=== PATIENT | male | born 1960 | race African-American/Black ===

== ENCOUNTER 2017-08-01 12:50 | Inpatient (IN) | payer OTHER ==
[2017-08-01 13:56] LABS: #Basophils 0.1 thou/uL (0.0-0.2); #Eosinphils 0.3 thou/uL (0.0-0.7); #Lymphocytes 1.1 thou/uL (1.20-3.40); #Monocytes 0.7 thou/uL (0.11-0.59); #Neutrophils 12.1 thou/uL (1.40-6.50); %Basophils 0.7 % (0.0-1.0); %Eosinophils 1.9 % (0.0-10.0); %Lymphocytes 7.9 % (21.0-51.0); %Monocytes 4.6 % (0.0-10.0); Mean Platelet Volume 8.3 fL (7.4-10.4); Red Blood Cell (RBC) Count 3.25 mill/uL (4.70-6.10); White Blood Cell (WBC) Count 14.3 thou/uL (4.8-10.8)
[2017-08-01 14:14] LABS: Bilirubin Negative (Negative); Blood, Urine Small (Negative); Glucose, Urine (Dipstick) >=1000 mg/dL (Negative); Ketone, Urine Negative (Negative); Nitrite Negative (Negative); Protein, Urine (Dipstick) 100 mg/dL (Neg-Trace); Urobilinogen 0.2 mg/dL (0.2-1.0)
[2017-08-01 14:18] LABS: ALT (SGPT) 13 U/L (8-55); AST (SGOT) 17 U/L (5-34); Alkaline Phosphatase 111 U/L (40-150); Anion Gap 19 mmol/L (10-20); BUN (Urea Nitrogen) 55 mg/dL (8.4-25.7); Bilirubin, Total 0.4 mg/dL (0.2-1.2); Calc. Creatinine Clearance 0 mL/min (70-130); Calcium 8.2 mg/dL (7.8-10.44); Carbon Dioxide 13 mmol/L (22-29); Chloride 106 mmol/L (98-107); Estimated GFR-MDRD 12; Globulin 3.9 g/dL (2.4-3.5); Protein, Total 6.4 g/dL (6.0-8.3)
[2017-08-01 14:19] LABS: Bacteria/HPF Rare-Few HPF (None Seen); Hyaline Casts/LPF 0-3 HYALINE CAST LPF (0-3 Hyaline); Squamous Epithelial 0-3 HPF (0-3); WBC/HPF 21-50 HPF (0-3)
[2017-08-01 14:22] LABS: Troponin I 0.128 ng/mL (< 0.028)
[2017-08-01 14:25] LABS: RBC/HPF 0-3 HPF (0-3)
[2017-08-01 14:26] LABS: Yeast-All Forms 1+ HPF (None Seen)
[2017-08-01 14:42] LABS: Oxyhemoglobin 91.3 % (94.0-97.0); Sodium 137 mmol/L (135-148)
[2017-08-01] MEDS ORDERED: Insulin Regular 300 UNITS/3 ML VIAL ONE (14:45)
[2017-08-01] MEDS ORDERED: Clindamycin/D5W 900 mg/50 ml Premix Bag ONE (14:45)
[2017-08-01 14:48] LABS: Mode RA; Modified Allen's Test POSITIVE; Vent NO
[2017-08-01] MEDS ORDERED: Insulin Regular 100 units/100 ml in NS IVPB SCH (15:00)
[2017-08-01] MEDS ORDERED: Piperacillin/Tazobactam 4.5 GM in Sodium Chloride 0.9% 100 ML IVPB SCH (15:15)
[2017-08-01] MEDS ORDERED: Heparin 10,000 UNITS/ 10 ML VIAL ONE (15:34)
[2017-08-01 15:37] LABS: Lactic Acid - Sepsis 0.9 mmol/L (0.5-2.2)
[2017-08-01 15:41] LABS: Magnesium 1.8 mg/dL (1.6-2.6); Phosphorus 4.8 mg/dL (2.3-4.7)
[2017-08-01] MEDS ORDERED: Loratadine 10 MG TAB PO PRN (15:41)
[2017-08-01] MEDS ORDERED: HumaLOG 300 UNITS/3 ML VIAL SC PRN ×2 (15:41)
[2017-08-01] MEDS ORDERED: Dextrose 50% Abboject 50 ML SYRINGE SLOW IVP PRN (15:41)
[2017-08-01] MEDS ORDERED: traMADol HCl 50 MG TAB PO PRN (15:41)
[2017-08-01] MEDS ORDERED: Lorazepam 1 MG TAB PO PRN (15:41)
[2017-08-01] MEDS ORDERED: Calcium Carbonate 500 MG ChewTAB PO PRN (15:41)
[2017-08-01] MEDS ORDERED: Nitroglycerin 0.4 MG TAB (25 Tab Bottle) SL PRN (15:41)
[2017-08-01] MEDS ORDERED: Dextrose 5% in Water 1,000 ML IV PRN (15:41)
[2017-08-01] MEDS ORDERED: Bisacodyl 5 MG TAB PO PRN ×2 (15:41)
[2017-08-01] MEDS ORDERED: Senokot 8.6 MG TAB PO PRN ×2 (15:41)
[2017-08-01] MEDS ORDERED: Benzonatate 100 MG CAP PO PRN (15:41)
[2017-08-01] MEDS ORDERED: Mag-Al 1200 mg/1200 mg/30 ML UDCUP PO PRN (15:41)
[2017-08-01] MEDS ORDERED: Acetaminophen 325 MG TAB PO PRN (15:41)
--- NOTE | 2017-08-01 15:59 | ULT ---
TESTICULAR ULTRASOUND: Date: 08/01/17 HISTORY: Testicular pain. FINDINGS: Each testicle demonstrates what appears to be a striated appearance, which is overall nonspecific an d symmetric in appearance bilaterally. Some of the striated appearance is related to vasculature wit hin the testicle. There is no evidence of a testicular mass bilaterally. Right testicle measures 4.0 cm x 2.5 cm x 2.3 cm. Left testicle measures 3.7 cm x 2.1 cm x 2.4 cm. Doppler evaluation of each testicle with spectral analysis and color flow evaluation does demonstrat e arterial flow. The epididymides demonstrate a normal sonographic appearance. There are small bilateral hydroceles noted. There is skin thickening and significant edema involving the scrotal soft tissues. Flatbed Press Operator reports bilateral varicoceles, but no Vasquez scale images were obtained in this regio n to definitely delineate a varicocele. Only images with flow are demonstrated and the vessels are u nable to be adequately evaluated on this exam. IMPRESSION: 1. Significant scrotal edema and mild skin thickening. 2. Nonspecific mildly striated appearance of each testicle, and some of the striated appearance is related to vascular structures. There is no testicular mass, and arterial flow is documented in each testicle. 3. Small bilateral hydroceles. POS: [facility]
[2017-08-01] MEDS ORDERED: NS 0.9% w/ 20 MEQ KCL 1,000 ML IV PRN ×2 (16:15)
[2017-08-01] MEDS ORDERED: Dextrose 5 %-0.45 % NaCl 1,000 ML IV PRN (16:15)
[2017-08-01] MEDS ORDERED: CCU Electrolyte Replacement 1 EACH IVPB ONE (16:15)
[2017-08-01] MEDS ORDERED: D5 1/2 NS w/20 mEq KCL 1,000 ML IV PRN (16:15)
[2017-08-01] MEDS ORDERED: Sodium Chloride 0.9% 500 ML IV SCH (16:15)
[2017-08-01] MEDS ORDERED: Sodium Chloride 0.9% 1,000 ML IV PRN ×4 (16:15)
[2017-08-01] MEDS ORDERED: Potassium Phosphate 15 MMOL in Sodium Chloride 0.9% 250 ML 250 ML IV PRN (16:26)
[2017-08-01] MEDS ORDERED: Magnesium Oxide 400 MG TAB PO PRN ×2 (16:26)
[2017-08-01] MEDS ORDERED: Potassium Chloride 40 MEQ in Sodium Chloride 0.9% 250 ML 250 ML IVPB PRN (16:26)
[2017-08-01] MEDS ORDERED: Magnesium 2 GM/NS 0.9% 100 ML 2 GM in Premix Bag 1 BAG IVPB PRN (16:26)
[2017-08-01] MEDS ORDERED: CCU ELECTROLYTE REPLACEMENT PROTOCOL FS PRN (16:26)
[2017-08-01] MEDS ORDERED: Potassium Chloride 20 MEQ TAB PO PRN (16:26)
[2017-08-01] MEDS ORDERED: Potassium Phosphate 9 MMOL in Sodium Chloride 0.9% 100 ML IVPB PRN (16:26)
[2017-08-01] MEDS ORDERED: Potassium Chloride 40 MEQ in Premix Bag 1 BAG IVPB PRN (16:26)
[2017-08-01] MEDS ORDERED: Potassium Phosphate 12 MMOL in Sodium Chloride 0.9% 250 ML 250 ML IV PRN (16:26)
[2017-08-01 17:03] LABS: Anion Gap 17 mmol/L (10-20); BUN (Urea Nitrogen) 53 mg/dL (8.4-25.7); Calc. Creatinine Clearance 0 mL/min (70-130); Calcium 7.5 mg/dL (7.8-10.44); Carbon Dioxide 13 mmol/L (22-29); Chloride 108 mmol/L (98-107); Estimated GFR-MDRD 13
[2017-08-01] MEDS ORDERED: Piperacillin/Tazobactam 3.375 GM in Sodium Chloride 0.9% 100 ML IVPB SCH (18:00)
[2017-08-01] MEDS ORDERED: VANCOMYCIN/ZOSYN IVPB PRN (18:07)
[2017-08-01 18:51] VITALS: BMI 22.1
[2017-08-01 19:37] LABS: Anion Gap 16 mmol/L (10-20); BUN (Urea Nitrogen) 52 mg/dL (8.4-25.7); Calc. Creatinine Clearance 15 mL/min (70-130); Carbon Dioxide 15 mmol/L (22-29); Chloride 109 mmol/L (98-107); Estimated GFR-MDRD 13
[2017-08-01] MEDS: Ferrous Sulfate 325 MG TAB PO SCH (20:07)
[2017-08-01] MEDS: Famotidine 20 MG TAB PO SCH (21:08)
[2017-08-01] MEDS: Carvedilol 6.25 MG TAB PO SCH (21:08)
[2017-08-01] MEDS: Heparin 5,000 UNITS/ML VIAL SC SCH (21:09)
[2017-08-01 21:35] LABS: Amphetamine Not Detected (NotDetected); Methadone Not Detected (NotDetected); Methamphetamine Not Detected (NotDetected)
--- NOTE | 2017-08-01 21:40 | HP ---
DATE OF ADMISSION: 08/01/2017 PRIMARY CARE PHYSICIAN: Dr. Almanzar. CHIEF COMPLAINT: Scrotal swelling and pain. HISTORY OF PRESENT ILLNESS: Mr. Dumont is a pleasant 57-year-old -H[place] male with past [facility] history of chronic kidney disease stage 4, uncontrolled diabetes and multiple hospitalizations f or nonketotic hyperosmolar diabetes as well as chronic systolic and diastolic congestive heart failu re and noncompliance, who presented to the emergency room with the above-mentioned complaint. Histo ry is mainly obtained by the patient himself and electronic medical record have been reviewed. The patient was in fact discharged from our facility just 2 days ago after being treated in the critical care unit with severe hypovolemic shock due to gastroenteritis and acute renal insufficiency. According to Mr. Dumont, he has been compliant with his medications. He was told not to take his insu shira sliding scale and continue to take Levemir 15 units 1 time a day. Though I have no collaboratio n of this order in his chart, he indeed just took one dose of insulin yesterday and did not take it this morning. He has been feeling poorly and has felt that his scrotum has gotten progressively mor e swollen and now it is hurting him pretty bad. In the emergency room, he was found to be in hyperosmolar state with a blood sugar of 661. His anio n gap is normal. His ABG showed mild acidosis with pH of 7.34 and his beta hydroxybutyrate is minim ally elevated at 0.59. He has been started on a DKA protocol with insulin drip. Further evaluation included a testicular ultrasound, which is negative for any testicular torsion. He does have indeed warmth and erythema of the testes on examination and he has been started on IV a ntibiotics for possible scrotal cellulitis and Urology has been consulted by the ER physician. He i s now being admitted to [facility] for HHS and scrotal cellulitis. His renal function shows estimated GFR 12, creatinine of 5.90 which was 5.79 upon discharge. PAST MEDICAL HISTORY: 1. History of nonketotic hyperosmolar state in 04/2017. 2. Chronic kidney disease stage 4. 3. Chronic systolic and diastolic congestive heart failure. 4. Benign prostatic hypertrophy. 5. Diabetes mellitus type 2. 6. Chronic microcytic anemia. 7. Hypertension. 8. Vascular disease. PAST SURGICAL HISTORY: 1. Cystoscopy 2. Right BKA. SOCIAL HISTORY: The patient lives with his aunt. The patient has history of cocaine abuse as recen tly as during his last admission. FAMILY HISTORY: Diabetes. CURRENT MEDICATIONS: As per the most recent discharge summary, he should be on the following, but t hese need to be confirmed. Coreg 6.25 p.o. b.i.d., ferrous sulfate 325 mg p.o. daily, Levemir 15 un its at bedtime, Lopressor 25 b.i.d., Flomax 0.4 daily, and Norvasc 10 mg daily. ALLERGIES: No known medication allergies. REVIEW OF SYSTEMS: The following complete review of systems was negative, unless otherwise mentione d in the HPI or below: Constitutional: Weight loss or gain, ability to conduct usual activities. Skin: Rash, itching. Eyes: Double vision, pain. ENT/Mouth: Nose bleeding, neck stiffness, pain, tenderness. Cardiovascular: Palpitations, dyspnea on exertion, orthopnea. Respiratory: Shortnes s of breath, wheezing, cough, hemoptysis, fever or night sweats. Gastrointestinal: Poor appetite, abdominal pain, heartburn, nausea, vomiting, constipation, or diarrhea. Genitourinary: Urgency, fr equency, dysuria, nocturia. Musculoskeletal: Pain, swelling. Neurologic/Psychiatric: Anxiety, de pression. Allergy/Immunologic: Skin rash, bleeding tendency. It is negative except for those ment ioned in the history and physical. LABORATORY DATA: CBC shows WBC is 14.3, platelet count of 318, 85% neutrophils. ABG shows pH of 7. 34, pCO2 of 33, pO2 of 75. Serum chemistry shows sodium 133, bicarbonate of 13, anion gap of 19, BU N 55, creatinine 5.90, blood sugar 661, lactic acid 0.9, phosphorus 4.8, magnesium 1.8. Troponin 0. 128. Lipase 66. Urinalysis show +1 yeast, few wbc's and trace leukocyte esterase. Beta hydroxybut yrate 0.59. Testicular ultrasound shows normal blood flow bilaterally and significant scrotal edema and skin thickening. PHYSICAL EXAMINATION: VITAL SIGNS: Upon presentation include blood pressure 188/111, pulse 90, respirations 22, saturatin g 99% on room air, and temperature 97.4. GENERAL: He appears uncomfortable, but lying in bed without any acute distress. He is awake, alert , oriented x3. HEENT: Mucous membrane is moist and pink. No oropharyngeal exudate or erythema. Head is normoceph alic, atraumatic. Pupils equal, reactive to light and accommodation. Extraocular movements intact. NECK: Supple without any lymphadenopathy, JVD or bruit. CHEST: Clear to auscultation without any wheezing, rales or rhonchi. Rate, rhythm is regular witho ut any murmur, rubs or gallops. ABDOMEN: Soft, nontender, nondistended, positive bowel sounds. EXTREMITIES: Showed right BKA without any edema in the left lower extremity. GENITOURINARY: He has significant swelling of his penis and scrotum bilaterally. There is redness and some warmth on palpation. It is tender to discharge. There is no skin breakdown or purulent di scharge. NEUROLOGIC: Nonfocal. SKIN: Free of any rashes or bruises. Feels warm and dry to touch. PSYCHIATRIC: Normal affect. IMPRESSION AND PLAN: 1. Scrotal cellulitis. We will continue the IV antibiotics that have been started in the emergency room including vancomycin and Zosyn. Urology has been consulted. We will follow the results of th e blood culture and urine culture obtained in the emergency room. 2. Hyperosmolar hyperketotic state and diabetes type 2. Given the severity of hyperglycemia and re nal failure: He will be treated with DKA protocol and will be admitted to IMCU. We will continue h im on insulin drip along with IV fluids with Accu-Cheks q.1 hour and BMP check q.4 hours. Follow the DKA protocol until his blood sugar improves. He will be restarted on long-acting insulin in the mo rning. Also, add insulin sliding scale in few hours when his blood sugar stabilize. Provide him wi th a diabetic diet. 3. Uncontrolled hypertension. We will restart his home medications, which further need to be confi rmed. It seems like he was taking 2 beta blockers. At this time, we will continue him on Coreg latisha ng with Norvasc and add p.r.n. antihypertensives. 4. Acute on chronic kidney insufficiency. We will reconsult Nephrology. The last time, the patien t left early without Nephrology followup. At this time, he will be gently resuscitated with IV flui ds. 5. History of chronic congestive heart failure. His last transthoracic echocardiogram was in 10/13 14, which showed ejection fraction of 40%-45% with concentric left ventricular hypertrophy. We will repeat the echocardiogram to obtain a baseline as he remains at risk for fluid overload by resuscit ation. 6. Diabetes mellitus type 2. I have instructed the patient to restart his short-acting insulin pos t-discharge along with continuation of his long-acting insulin. Medication dose will be titrated wh ile he is in the hospital. 7. Hyponatremia, likely spurious secondary to severe hyperglycemia. He will be resuscitated with I V fluids and we will continue to recheck. 8. Code status: FULL CODE. Discussed with the patient. DISPOSITION: The patient has hyperosmolar hyperketotic state due to diabetes mellitus type 2 along with scrotal edema and cellulitis. He will be admitted to IMCU at this time. Estimated length of s diana is at least 2-3 midnight. Further management will depend upon his clinical course.
[2017-08-01 23:51] LABS: Anion Gap 15 mmol/L (10-20); BUN (Urea Nitrogen) 52 mg/dL (8.4-25.7); Calc. Creatinine Clearance 14 mL/min (70-130); Calcium 7.8 mg/dL (7.8-10.44); Carbon Dioxide 15 mmol/L (22-29); Chloride 110 mmol/L (98-107); Estimated GFR-MDRD 13
[2017-08-01] MEDS: Piperacillin/Tazobactam 2.25 GM in Sodium Chloride 0.9% 100 ML IVPB SCH (23:51)
[2017-08-02 05:02] LABS: #Basophils 0.1 thou/uL (0.0-0.2); #Eosinphils 0.8 thou/uL (0.0-0.7); #Lymphocytes 1.4 thou/uL (1.20-3.40); #Monocytes 0.8 thou/uL (0.11-0.59); #Neutrophils 9.3 thou/uL (1.40-6.50); %Basophils 0.9 % (0.0-1.0); %Eosinophils 6.2 % (0.0-10.0); %Lymphocytes 11.5 % (21.0-51.0); Hematocrit 25.1 % (42.0-52.0); Mean Platelet Volume 8.1 fL (7.4-10.4); Red Blood Cell (RBC) Count 3.05 mill/uL (4.70-6.10); White Blood Cell (WBC) Count 12.4 thou/uL (4.8-10.8)
[2017-08-02 05:28] LABS: Anion Gap 13 mmol/L (10-20); BUN (Urea Nitrogen) 53 mg/dL (8.4-25.7); Calc. Creatinine Clearance 14 mL/min (70-130); Calcium 7.9 mg/dL (7.8-10.44); Carbon Dioxide 18 mmol/L (22-29); Chloride 108 mmol/L (98-107); Estimated GFR-MDRD 13
--- NOTE | 2017-08-02 05:36 | CON ---
DATE OF CONSULTATION: 08/01/2017 CONSULTING PHYSICIAN: Pauline Fitzpatrick MD REASON FOR CONSULTATION: Acute kidney injury, chronic kidney disease. REASON FOR ADMISSION: Testicular swelling. HISTORY OF PRESENT ILLNESS: A 57-year-old male with history of type 2 diabetes, kidney disease stag e IV, CHF, anemia, hypertension, but came to the hospital with testicular swelling and is being eval uated. He was recently discharged from the hospital, acute kidney injury on chronic kidney disease with slowly improving creatinine. Patient denies any shortness of breath or chest pain and he had d ifficulty having Palm insertion and Urology placed a Palm for him while he was in the hospital and after Palm removal, he started having swelling in the scrotum and was taken to the hospital. No f ever or chills, no nausea, vomiting, diarrhea, no chest pain or palpitation reported. PAST MEDICAL HISTORY: Positive for chronic kidney disease, type 2 diabetes, CHF, BPH, anemia, hyper tension, peripheral vascular disease. PAST SURGICAL HISTORY: Right below knee amputation. HOME MEDICATIONS: Include gabapentin, Coreg, Onglyza, Norvasc, lisinopril, Lasix, Flomax, Levemir. ALLERGIES: No known drug allergies. SOCIAL HISTORY: No smoking, alcohol or illicit drug abuse, but he was positive for cocaine last adonis e. FAMILY HISTORY: No history of any kidney disease. REVIEW OF SYSTEMS: The following complete review of systems was negative, unless otherwise mentione d in the HPI or below: Constitutional: Weight loss or gain, ability to conduct usual activities. Skin: Rash, itching. E yes: Double vision, pain. ENT/Mouth: Nose bleeding, neck stiffness, pain, tenderness. Cardiovasc ular: Palpitations, dyspnea on exertion, orthopnea. Respiratory: Shortness of breath, wheezing, c ough, hemoptysis, fever or night sweats. Gastrointestinal: Poor appetite, abdominal pain, heartbur n, nausea, vomiting, constipation, or diarrhea. Genitourinary: Urgency, frequency, dysuria, noctur ia. Musculoskeletal: Pain, swelling. Neurologic/Psychiatric: Anxiety, depression. Allergy/Immun ologic: Skin rash, bleeding tendency. PHYSICAL EXAMINATION: GENERAL: This is a well-built male in no apparent distress. VITAL SIGNS: Temperature 98.4, pulse 70, respirations 18, blood pressure 172/82. HEENT: Atraumatic, normocephalic. Oral mucosa is moist. NECK: Supple. No masses. CARDIOVASCULAR: S1, S2. Rate and rhythm regular. RESPIRATORY: Clear. ABDOMEN: Soft. Scrotal swelling present MUSCULOSKELETAL: No tenderness noted. No edema. DERMATOLOGIC: No skin rash. NEUROLOGIC: Alert, awake. LABORATORY AND X-RAY FINDINGS: WBC is 14.3, hemoglobin is 8.8, potassium is 4.0, BUN is 53, .4 . ASSESSMENT AND PLAN: 1. Acute kidney injury on chronic kidney disease. Renal function with slow recovery. No acute ind ication for dialysis. No hyperkalemia, still acidotic, we will add sodium bicarbonate. 2. Scrotal edema, follow up with Urology. 3. Hypertension, stable. 4. Anemia. We will monitor. 5. Status post transfusion. 6. We will monitor renal function. No acute need for dialysis. We will follow.
[2017-08-02] MEDS: cloNIDine 0.1 MG TAB PO PRN (06:24)
[2017-08-02] MEDS ORDERED: Insulin Regular 300 UNITS/3 ML VIAL SC PRN (08:49)
[2017-08-02] MEDS ORDERED: Insulin Detemir 100 UNITS/ML 15 UNITS in Pre-Filled Syringe 1 EACH SC SCH (09:00)
[2017-08-02] MEDS ORDERED: Insulin Regular 300 UNITS/3 ML VIAL SC SCH (09:00)
[2017-08-02] MEDS: Piperacillin/Tazobactam 2.25 GM in Sodium Chloride 0.9% 100 ML IVPB SCH ×2 (09:09→17:42)
[2017-08-02] MEDS: Heparin 5,000 UNITS/ML VIAL SC SCH ×2 (09:12→21:32)
[2017-08-02] MEDS: Amlodipine 10 MG TAB PO SCH (09:13)
[2017-08-02] MEDS: Tamsulosin HCl 0.4 MG CAP PO SCH (09:14)
[2017-08-02] MEDS: Carvedilol 6.25 MG TAB PO SCH ×2 (09:14→21:32)
[2017-08-02] MEDS: Ferrous Sulfate 325 MG TAB PO SCH ×2 (09:14→17:13)
--- NOTE | 2017-08-02 12:38 | CON ---
DATE OF CONSULTATION: 08/02/2017 HISTORY OF PRESENT ILLNESS: Homer Dumont is a 57-year-old male. He has a history of chronic kidney disease and diabetes. He was recently in the hospital. He presents with complaints of scrotal pain and swelling. He has subsequently been admitted. Urology has been consulted. He is on Zosyn and vancomycin. He says he feels about the same. PAST MEDICAL HISTORY: Remarkable for, 1. Severe peripheral vascular disease with right lower extremity amputation below the knee. 2. Hypertension. 3. History of cystoscopy in the past. SOCIAL HISTORY: He is a nonsmoker, nondrinker and history of using cocaine. FAMILY HISTORY: Negative for lung disease at an early age. PHYSICAL EXAMINATION: VITAL SIGNS: His blood pressure 153/99, heart rate 75, respiratory rate 20. He is afebrile, has be en afebrile since admission. HEENT: Pupils are equal. Sclerae is anicteric. NECK: Supple. LUNGS: Clear. HEART: Regular rhythm. ABDOMEN: Soft and nontender. GENITOURINARY: He has penile and scrotal edema with mild erythema. He does not have the appearance of necrotizing fasciitis. Urology has been consulted. LABORATORY DATA: White count 12.4, hemoglobin 8.2, platelets 299. Sodium 134, potassium 4.6, chloride 108, bicarbonate 18, BUN 53, creatinine 5.6. IMPRESSION: 1.? cellulitis of the scrotum, less likely necrotizing fasciitis. He does not clinically appear to be septic. 2. Severe hyperglycemia. 3. History of medical noncompliance. 4. History of cocaine use with positive drug screen for cocaine in this admission. 5. He will continue antimicrobial therapy and await neurology's input. He appears to be medically stable.
--- NOTE | 2017-08-02 12:39 | PQF ---
DATE: 08-02-17 ATTN: DR. SHIVA KELLY Please exercise your independent, professional judgment in responding to the clarification form. Clinical indicators are provided on the bottom of this form for your review Please check appropriate box(s): ___X____ I (concur) with the Nurses Assessment findings as stated below. I do not (concur) with the Nurses Assessment findings as stated below. [ ] Pressure Ulcer: (Stage I: Erythema; Stage II: Partial thickness; Stage III : Full thickness; Stage IV: Necrosis to muscle/bone) [ ] Location: POA: [ X] Yes [ ] No[ ] Unable to determine Stage (I to IV): (Left Right Bilateral N/A ) [ ] Gangrene present [ ] Yes [ ] ischemic gangrene [ ] gas gangrene [ ] No [ ] Deep tissue injury [ ] Other diagnosis [ ] Unable to determine In addition, please specify: Present on Admission (POA): [X ] Yes [ ] No [ ] Unable to determine For continuity of documentation, please document condition throughout progress notes and discharge summary. Thank You. CLINICAL INDICATORS - SIGNS / SYMPTOMS / LABS NURSE ASSESSMENT 08-01-17: SACROCOCCYGEAL PRESSURE ULCER STAGE 3 RISK FACTORS: NURSE ASSESSMENT 08-01-17: WEAK, CAN NOT WALK, CAN NOT STAND, 1 PERSON ASSIST, MODERATE ASSISTANCE, R BKA TREATMENTS: NURSE ASSESSMENT: DRESSING DRY AND INTACT, MERIPLEX, DRESSING CHANGED, PRESSURE POINTS OFFLOADED (This form is maintained as a part of the permanent medical record) 2015 [employer] All Rights Reserved [email or web address] Office: [phone] [facility]PITALSaad
--- NOTE | 2017-08-02 12:57 | PQF ---
DATE: 08-02-17 ATTN : DR. SHIVA KELLY Please exercise your independent, professional judgment in responding to the clarification form. Clinical indicators are provided on the bottom of this form for your review Please check appropriate box(s): [ ] UTI UTI Site: [ ] Kidney [ ] Ureter [ ] Bladder [ ] Urethra [ ] Unable to determine Specify Organism (if known): [ ] Unknown organism [ ] Contaminated urine specimen without UTI [ ] Other diagnosis [X ] Unable to determine In addition, please specify: Present on Admission (POA): [ ] Yes [ X] No [ ] Unable to determine For continuity of documentation, please document condition throughout progress notes and discharge summary. Thank You. CLINICAL INDICATORS - SIGNS / SYMPTOMS / LABS URINE 08-01-17: URINE PROTEIN: 100 H URINE GLUCOSE: >=1000 H URINE BLOOD: SMALL H UR LEUKOCYTE ESTERASE: TRACE H URINE WBC: 21-50 H URINE YEAST 1+ H RISK FACTORS: H&P: MULTIPLE HOSPITALIZATIONS FOR NONKETONIC HYPEROSMOLAR DIABETES, UNCONTROLLED DIABETES HISTORY, JUST DISCHARGED 2 DAYS AGO, R BKA , TESTICULAR SWELLING TREATMENT: (08/01/17) ZOSYN, (08-03-17) VANCOMYCIN (This form is maintained as a part of the permanent medical record) 2014 [employer] All Rights Reserved [email or web address] Office: [phone] [facility]
--- NOTE | 2017-08-02 15:17 | PDOC.PN ---
- Subjective Encounter Start Date: 08/02/17 Encounter Start Time: 15:15 Subjective: feels better.scrotal swelling stilll the same -: no SOB - Objective MAR Reviewed: Yes Vital Signs & Weight: Vital Signs (12 hours) Temp Pulse Resp BP BP Pulse Ox 08/02/17 11:13 97.7 F 77 20 171/100 H 99 08/02/17 09:14 153/99 H 08/02/17 09:13 75 153/99 H 08/02/17 08:04 83 159/105 H 08/02/17 08:00 97.6 F 81 20 98 08/02/17 07:08 97.6 F 81 20 177/107 H 98 08/02/17 06:24 176/109 H 08/02/17 05:00 80 16 147/106 H 98 08/02/17 04:00 98.0 F 82 20 175/107 H 98 Weight Admit Weight 149 lb 14.624 oz Weight 149 lb 14.624 oz I&O: 08/01/17 08/02/17 08/03/17 06:59 06:59 06:59 Intake Total 1045 1134.6 Output Total 720 175 Balance 325 959.6 Result Diagrams: 08/02/17 04:11 08/02/17 04:11 Additional Labs: Accuchecks 08/02/17 08/02/17 08/02/17 11:13 09:06 07:56 POC Glucose 110 128 H 114 H 08/02/17 08/02/17 08/02/17 07:01 06:01 05:12 POC Glucose 120 H 144 H 159 H 08/02/17 08/02/17 08/02/17 04:02 03:02 02:05 POC Glucose 160 H 164 H 175 H 08/02/17 08/02/17 08/01/17 01:03 00:02 23:00 POC Glucose 130 H 99 98 08/01/17 08/01/17 08/01/17 22:02 21:00 20:01 POC Glucose 110 143 H 178 H 08/01/17 08/01/17 18:53 17:09 POC Glucose 254 H 403 H Microbiology 08/01/17 14:02 Urine clean catch Urine Culture - Preliminary 08/01/17 13:43 Venous blood - Left Hand Blood Culture - Preliminary Specimen has been received and culture in progress. No Growth to date. 08/01/17 13:39 Venous blood - Right Arm Blood Culture - Preliminary Specimen has been received and culture in progress. No Growth to date. Laboratory Tests 08/01/17 08/01/17 08/01/17 13:33 16:33 19:10 Carbon Dioxide 13 L 13 L 15 L Creatinine 5.90 H 5.49 H 5.43 H U Cocaine Metab Screen 08/01/17 08/01/17 08/02/17 19:55 23:12 04:11 Carbon Dioxide 15 L 18 L Creatinine 5.57 H 5.62 H U Cocaine Metab Screen Detected H Phys Exam - Physical Examination Constitutional: NAD HEENT: PERRLA, moist MMs, sclera anicteric, oral pharynx no lesions Neck: no nodes, no JVD, supple, full ROM Respiratory: no wheezing, no rales, no rhonchi, clear to auscultation bilateral Cardiovascular: RRR, no significant murmur Gastrointestinal: soft, non-tender, no distention, positive bowel sounds Musculoskeletal: pulses present, edema present (scrotal and penile edema w erythema and tenderness) Dx/Plan (1) Cellulitis of scrotum Code(s): N49.2 - INFLAMMATORY DISORDERS OF SCROTUM Status: Acute (2) Acute kidney injury superimposed on CKD Code(s): N17.9 - ACUTE KIDNEY FAILURE, UNSPECIFIED; N18.9 - CHRONIC KIDNEY DISEASE, UNSPECIFIED Status: Acute (3) Hyperosmolar non-ketotic state in patient with type 2 diabetes mellitus Code(s): E11.01 - TYPE 2 DIABETES MELLITUS WITH HYPEROSMOLARITY WITH COMA Status: Acute (4) Hx of BKA Code(s): Z89.519 - ACQUIRED ABSENCE OF UNSPECIFIED LEG BELOW KNEE Status: Acute (5) Metabolic acidosis Code(s): E87.2 - ACIDOSIS Status: Acute (6) Anemia of renal disease Code(s): D63.1 - ANEMIA IN CHRONIC KIDNEY DISEASE Status: Chronic (7) BPH (benign prostatic hyperplasia) Code(s): N40.0 - BENIGN PROSTATIC HYPERPLASIA WITHOUT LOWER URINRY TRACT SYMP Status: Chronic (8) Chronic combined systolic and diastolic heart failure Code(s): I50.42 - CHRONIC COMBINED SYSTOLIC AND DIASTOLIC HRT FAIL Status: Chronic (9) Cocaine abuse Code(s): F14.10 - COCAINE ABUSE, UNCOMPLICATED Status: Chronic - Plan continue antibiotics, DVT proph w/SCDs cont IV Abx. follow Cx.urology consulted. -: add Hydralazine for HTN.monitor -: add Bicarb drip.Cr still high. nephrology following.repeat labs in am -: HHS resolved. cont ISS w [facility] accuchecks.follow BMP. -: restart levemir hs at 15 Units. * .am labs.supportive care Review of Systems - Review of Systems Constitutional: Weakness, Malaise. negative: Fever, Chills, Sweats, Other Respiratory: negative: Cough, Dry, Shortness of Breath, Hemoptysis, SOB with Excertion, Pleuritic Pain, Sputum, Wheezing Cardiovascular: Edema. negative: Chest Pain, Palpitations, Orthopnea, Paroxysmal Noc. Dyspnea, Light Headedness, Other Gastrointestinal: negative: Nausea, Vomiting, Abdominal Pain, Diarrhea, Constipation, Melena, Hematochezia, Other Genitourinary: negative: Dysuria, Frequency, Incontinence, Hematuria, Retention , Other Musculoskeletal: negative: Neck Pain, Shoulder Pain, Arm Pain, Back Pain, Hand Pain, Leg Pain, Foot Pain, Other - Medications/Allergies Allergies/Adverse Reactions: Allergies Allergy/AdvReac Type Severity Reaction Status Date / Time No Known Drug Allergies Allergy Verified 05/09/17 07:17 Medications: Current Medications Acetaminophen (Tylenol) 650 mg PO Q4H PRN PRN Reason: Headache/Fever or Pain Al Hydroxide/Mg Hydroxide (Maalox) 30 ml PO Q6H PRN PRN Reason: Heartburn or Indigestion Amlodipine Besylate (Norvasc) 10 mg PO DAILY [facility] Last Admin: 08/02/17 09:13 Dose: 10 mg Benzonatate (Tessalon) 100 mg PO Q4H PRN PRN Reason: Cough Bisacodyl (Dulcolax) 10 mg PO DAILYPRN PRN PRN Reason: Constipation Calcium Carbonate (Tums) 1,000 mg PO Q4H PRN PRN Reason: Heartburn or Indigestion Carvedilol (Coreg) 6.25 mg PO BID [facility] Last Admin: 08/02/17 09:14 Dose: 6.25 mg Clonidine (Catapres) 0.1 mg PO Q4H PRN PRN Reason: Systolic BP > 160 Last Admin: 08/02/17 06:24 Dose: 0.1 mg Dextrose/Water (Dextrose 50%) 25 gm SLOW IVP PRN PRN PRN Reason: Hypoglycemia Famotidine (Pepcid) 20 mg PO Q24HR [facility] Last Admin: 08/01/17 21:08 Dose: 20 mg Ferrous Sulfate (Feosol) 325 mg PO BID[facility] Last Admin: 08/02/17 09:14 Dose: 325 mg Glucagon (Glucagon) 1 mg IM PRN PRN PRN Reason: Hypoglycemia Heparin Sodium (Porcine) (Heparin) 5,000 units SC BID [facility] Last Admin: 08/02/17 09:12 Dose: 5,000 units Hydralazine HCl (Apresoline) 10 mg SLOW IVP Q4H PRN PRN Reason: Systolic BP > 170 Dextrose/Water (D5w) 1,000 mls @ 0 mls/hr IV .Q0M PRN; As Directed PRN Reason: Hypoglycemia Potassium Chloride 40 meq/ (Sodium Chloride) 270 mls @ 135 mls/hr IVPB ASDIR PRN PRN Reason: FOR SERUM K+ 2.5 - 3.5 Potassium Chloride 40 meq/ (Device) 100 mls @ 50 mls/hr IVPB ASDIR PRN PRN Reason: FOR SERUM K+ 2.5 - 3.5 Magnesium Sulfate 1 gm/ Sodium (Chloride) 102 mls @ 102 mls/hr IV PRN PRN PRN Reason: MAG LEVEL 1.4 - 2.0 Magnesium Sulfate 2 gm/ Device 100 mls @ 100 mls/hr IVPB ASDIR PRN PRN Reason: MAGNESIUM < 1.4 Potassium Phosphate 9 mmol/ (Sodium Chloride) 103 mls @ 25.75 mls/hr IVPB ASDIR PRN PRN Reason: Phosphate 1.0-1.8 Potassium Phosphate 12 mmol/ (Sodium Chloride) 254 mls @ 63.5 mls/hr IV ASDIR PRN PRN Reason: Serum phosphate 0.5-0.9 Potassium Phosphate 15 mmol/ (Sodium Chloride) 255 mls @ 63.75 mls/hr IV ASDIR PRN PRN Reason: Serum Phos < 0.5 Insulin Detemir 15 units/ (Miscellaneous Medication) 0.15 mls @ 0 mls/hr SC [facility] Vancomycin HCl 750 mg/ Sodium (Chloride) 250 mls @ 250 mls/hr IVPB Q2D@1500 [facility] Piperacillin Sod/Tazobactam (Sod 2.25 gm/ Sodium Chloride) 100 mls @ 200 mls/ hr IVPB 0800,1600,2359 [facility] Last Admin: 08/02/17 09:09 Dose: 100 mls Insulin Human Regular (Humulin R) 0 units SC .MODERATE SLIDING SC PRN; Protocol PRN Reason: MODERATE SLIDING SCALE Insulin Human Regular (Humulin R) 0 units SC .BEDTIME SLIDING SC PRN; Protocol PRN Reason: BEDTIME SLIDING SCALE Loratadine (Claritin) 10 mg PO DAILYPRN PRN PRN Reason: Sinus Symptoms Lorazepam (Ativan) 1 mg PO Q4H PRN PRN Reason: Anxiety/Agitation Magnesium Oxide (Magnesium Oxide) 400 mg PO BIDPRN PRN PRN Reason: FOR SERUM MAG 1.4 - 2.0 Magnesium Oxide (Magnesium Oxide) 800 mg PO PRN PRN PRN Reason: FOR SERUM MAG < 1.4 Miscellaneous Medication (Phos-Nak) 1 pkt PO TIDPRN PRN PRN Reason: FOR PHOS LEVEL 1.0 - 1.8 Miscellaneous Medication (Phos-Nak) 2 pkt PO TIDPRN PRN PRN Reason: FOR PHOS LEVEL 0.5 - 1.0 Miscellaneous Medication (Pharmacy To Dose) 1 each IVPB PRN PRN PRN Reason: PHARMACY TO DOSE Nitroglycerin (Nitrostat) 0.4 mg SL Q5MIN PRN PRN Reason: Chest Pain Potassium Chloride (K-Dur) 40 meq PO ASDIR PRN PRN Reason: FOR SERUM K+ 2.5 - 3.5 Potassium Chloride (Klor-Con) 40 meq PER TUBE ASDIR PRN PRN Reason: FOR SERUM K+ 2.5-3.5 Senna (Senokot) 2 tab PO HSPRN PRN PRN Reason: Constipation Tamsulosin HCl (Flomax) 0.4 mg PO DAILY [facility] Last Admin: 08/02/17 09:14 Dose: 0.4 mg Tramadol HCl (Ultram) 50 mg PO Q4H PRN PRN Reason: Moderate Pain (4-6)
[2017-08-02] MEDS ORDERED: Vancomycin HCl 1 GM in Premix Bag 1 BAG IVPB SCH (16:15)
[2017-08-02] MEDS ORDERED: Ferrous Sulfate 325 MG TAB PO SCH (17:00)
[2017-08-02] MEDS: Sodium Bicarbonate 150 MEQ in Dextrose 5% in Water 1,000 ML IV SCH ×2 (17:10)
--- NOTE | 2017-08-02 20:29 | PRG ---
DATE OF SERVICE: 08/02/2017 SUBJECTIVE: Patient was seen and examined at bedside and overnight events noted. Patient denies an y shortness of breath or chest pain or palpitation. No history of Nausea or vomiting or diarrhea or fever or chills or cramps. OBJECTIVE: GENERAL: This is a well-built male in no apparent distress. VITAL SIGNS: Temperature 97.8, pulse 74, respirations 18, blood pressure 151/113. HEENT: Atraumatic, normocephalic, oral mucosa is moist. NECK: Supple. CARDIOVASCULAR: S1, S2 heard, rate and rhythm regular. RESPIRATORY: Clear to auscultation. GASTROINTESTINAL: Abdomen is soft. MUSCULOSKELETAL: No tenderness, no edema. DERMATOLOGIC: No skin rash. NEUROLOGIC: Alert and awake and oriented x3, no focal neurologic deficits. Moving all the extremit ies. PSYCHIATRIC: Mood and affect normal. LABORATORY DATA: Potassium is 4.6, BUN is 53 and creatinine is 5.6. ASSESSMENT AND PLAN: 1. Acute kidney injury on chronic kidney disease stage 4. Renal function seems to be stable. Cont inue on hydration. We will continue on bicarbonate. 2. Acidosis. 3. Total edema. 4. Anemia. 5. Hypertension, stable. 6. Continue IV fluids. Renal function is stable. No acute indication for dialysis. We will rocael mccartney
[2017-08-02] MEDS: Famotidine 20 MG TAB PO SCH (21:32)
[2017-08-02] MEDS: Insulin Detemir 100 UNITS/ML 15 UNITS in Pre-Filled Syringe 1 EACH SC SCH (21:33)
[2017-08-02] MEDS: hydrALAZINE 25 MG TAB PO SCH (21:33)
[2017-08-02] MEDS: hydrALAZINE 20 MG/ML VIAL SLOW IVP PRN (23:06)
[2017-08-03] MEDS: Piperacillin/Tazobactam 2.25 GM in Sodium Chloride 0.9% 100 ML IVPB SCH ×4 (00:19→23:40)
[2017-08-03 05:50] LABS: Anion Gap 13 mmol/L (10-20); BUN (Urea Nitrogen) 52 mg/dL (8.4-25.7); Calc. Creatinine Clearance 14 mL/min (70-130); Calcium 7.9 mg/dL (7.8-10.44); Carbon Dioxide 18 mmol/L (22-29); Chloride 107 mmol/L (98-107); Estimated GFR-MDRD 13
--- NOTE | 2017-08-03 07:11 | CON ---
DATE OF CONSULTATION: 08/02/2017 REASON FOR CONSULTATION: Scrotal swelling. HISTORY OF PRESENT ILLNESS: Mr. Dumont is a 57-year-old gentleman who I saw during a recent admission to [facility]. At that time, consultation was for inability to place a Palm catheter. The patient has a history of difficult catheter placement and was admitted to the hospital in diabetic ketoacidosis. He was also found to have renal failure and urine output necessary and adequate urine output was needed. Filiforms and followers were utilized to place a Palm catheter at that time. He was discharged home approximately 2 days ago. He states that they removed his Palm catheter prior to discharge on 07/30/2017. After removal of the Palm catheter, he noted the beginning of some swelling in his scrotum. He returned to the hospital on 08/01 after being discharged on 07/30/2017. He presented with a progressive swelling in the scrotum. He was admitted from the emergency room on 2016. Denies any tenderness. Denies any trauma to the scrotum. He states he has been voiding without difficulty. PAST MEDICAL HISTORY: Nonketotic hyperosmolar diabetes mellitus, chronic kidney disease, history of heart failure, history of bladder neck contracture, hypertension, severe peripheral vascular disease, drug abuse and anemia. PAST SURGICAL HISTORY: Right below-knee amputation. MEDICATIONS: At the time of discharge from the hospital 2 days ago included Coreg 6.25 mg p.o. b.i.d., iron sulfate 325 mg p.o. daily, Levemir 15 units at bedtime, Lopressor 25 mg b.i.d., Flomax 0.4 mg, Norvasc 10 mg daily. ALLERGIES: No known drug allergies. SOCIAL HISTORY: History of drug abuse. REVIEW OF SYSTEMS: RESPIRATORY: Denies any shortness of breath. CARDIOVASCULAR: Denies chest pain or palpitations. GASTROINTESTINAL: Denies chronic diarrhea, constipation. PHYSICAL EXAMINATION: GENERAL: He is awake, alert, he is in no distress at this time. HEENT: Normocephalic, atraumatic. NECK: Supple, without masses. CHEST: Clear to auscultation. ABDOMEN: Soft, nontender. No palpable masses. GENITOURINARY: Uncircumcised penis demonstrates no lesions. Scrotum is symmetrical in appearance. There is no evidence of skin disruption, no palpable masses, not significantly tender. No evidence of crepitance. LABORATORY DATA: White count 14.3, arterial blood gas pH 7.34, creatinine 5.9. IMAGING: Scrotal ultrasound, no evidence of tumor, no evidence of torsion, no evidence of masses. IMPRESSION: I agree with admission diagnosis of scrotal cellulitis. 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 Etiology of his cellulitis is not obvious. I agree with the current antibiotic therapy in addition to scrotal elevation. He denies any voiding symptoms at this time, so I do not recommend Palm catheterization. RECOMMENDATIONS: Scrotal elevation, antibiotic therapy, nonsurgically identifiable treatment options at this time. MTDD
[2017-08-03] MEDS ORDERED: Diabetic Tussin 200 MG/10 ML UDCUP PO PRN (07:40)
[2017-08-03] MEDS ORDERED: Chloraseptic Spray 180 ml Bottle PO PRN (07:40)
[2017-08-03] MEDS ORDERED: Ondansetron ODT 4 MG TAB PO PRN (07:40)
[2017-08-03] MEDS ORDERED: Artificial Tears 18 DROP/0.9 ML EA EYE PRN (07:40)
[2017-08-03] MEDS ORDERED: Eucerin (Mineral Oil/Petrolatum,White) 30 gm Jar TOP PRN (07:40)
[2017-08-03] MEDS ORDERED: Loperamide HCl 2 MG CAP PO PRN (07:40)
[2017-08-03] MEDS ORDERED: Milk Of Magnesia 30 ML UDCUP PO PRN (07:40)
[2017-08-03] MEDS ORDERED: Temazepam 15 MG CAP PO PRN (07:40)
[2017-08-03] MEDS ORDERED: Ondansetron HCl/PF 4 MG/2 ML Vial IVP PRN (07:40)
[2017-08-03] MEDS ORDERED: Sodium Chloride 0.65% Nasal 44 ML BOT EA NARE PRN (07:40)
[2017-08-03] MEDS: hydrALAZINE 25 MG TAB PO SCH ×3 (08:43→21:20)
[2017-08-03] MEDS: Amlodipine 10 MG TAB PO SCH (08:44)
[2017-08-03] MEDS: Carvedilol 6.25 MG TAB PO SCH ×2 (08:44→21:20)
[2017-08-03] MEDS: Heparin 5,000 UNITS/ML VIAL SC SCH ×2 (08:45→21:19)
[2017-08-03] MEDS: Tamsulosin HCl 0.4 MG CAP PO SCH (08:45)
[2017-08-03] MEDS: Ferrous Sulfate 325 MG TAB PO SCH ×2 (08:45→17:52)
[2017-08-03] MEDS: Sodium Bicarbonate 150 MEQ in Dextrose 5% in Water 1,000 ML IV SCH ×2 (08:58)
--- NOTE | 2017-08-03 11:48 | PDOC.PN ---
- Subjective Encounter Start Date: 08/03/17 Encounter Start Time: 09:30 -: old records requested/rev Patient seen and examined. No new complaints. No overnight events, no fever, pt does not want to go for HD - Objective MAR Reviewed: Yes Vital Signs & Weight: Vital Signs (12 hours) Temp Pulse Resp BP BP Pulse Ox 08/03/17 11:28 98.5 F 85 18 174/93 H 100 08/03/17 08:44 90 180/88 H 08/03/17 08:43 90 180/88 H 08/03/17 08:00 98.3 F 90 18 180/88 H 98 08/03/17 04:00 98.4 F 88 16 162/84 H 100 08/03/17 00:00 98.1 F 86 16 172/91 H 98 Weight Admit Weight 149 lb 14.624 oz Weight 149 lb 14.624 oz I&O: 08/02/17 08/03/17 08/04/17 06:59 06:59 06:59 Intake Total 1045 2299.6 Output Total 720 525 Balance 325 1774.6 Result Diagrams: 08/02/17 04:11 08/03/17 04:28 Additional Labs: Accuchecks 08/03/17 08/03/17 08/02/17 04:59 00:29 19:28 POC Glucose 154 H 294 H 228 H 08/02/17 16:41 POC Glucose 94 Phys Exam - Physical Examination Constitutional: NAD HEENT: PERRLA, moist MMs, sclera anicteric Neck: no JVD, supple Respiratory: no wheezing, no rales, no rhonchi Cardiovascular: RRR, no significant murmur, no rub Gastrointestinal: soft, non-tender, no distention, positive bowel sounds Musculoskeletal: no edema right BKA Neurological: non-focal, normal sensation scrotal cellulitis Lymphatic: no nodes Psychiatric: normal affect Skin: no rash, normal turgor Dx/Plan (1) Acute worsening of stage 4 chronic kidney disease Code(s): N28.9 - DISORDER OF KIDNEY AND URETER, UNSPECIFIED; N18.4 - CHRONIC KIDNEY DISEASE, STAGE 4 (SEVERE) Status: Acute (2) Cellulitis of scrotum Code(s): N49.2 - INFLAMMATORY DISORDERS OF SCROTUM Status: Acute (3) Hx of BKA Code(s): Z89.519 - ACQUIRED ABSENCE OF UNSPECIFIED LEG BELOW KNEE Status: Acute Qualifiers: Laterality: right Qualified Code(s): Z89.511 - Acquired absence of right leg below knee (4) Metabolic acidosis Code(s): E87.2 - ACIDOSIS Status: Acute (5) Anemia of renal disease Code(s): D63.1 - ANEMIA IN CHRONIC KIDNEY DISEASE Status: Chronic (6) BPH (benign prostatic hyperplasia) Code(s): N40.0 - BENIGN PROSTATIC HYPERPLASIA WITHOUT LOWER URINRY TRACT SYMP Status: Chronic (7) Chronic combined systolic and diastolic heart failure Code(s): I50.42 - CHRONIC COMBINED SYSTOLIC AND DIASTOLIC HRT FAIL Status: Chronic (8) Cocaine abuse Code(s): F14.10 - COCAINE ABUSE, UNCOMPLICATED Status: Chronic (9) Diabetic neuropathy Code(s): E11.40 - TYPE 2 DIABETES MELLITUS WITH DIABETIC NEUROPATHY, UNSP Status: Chronic Qualifiers: Diabetes mellitus type: type 2 (10) FTT (failure to thrive) in adult Status: Chronic (11) Hypertension Code(s): I10 - ESSENTIAL (PRIMARY) HYPERTENSION Status: Chronic Qualifiers: Hypertension type: essential hypertension Qualified Code(s): I10 - Essential (primary) hypertension (12) Moderate protein-calorie malnutrition Code(s): E44.0 - MODERATE PROTEIN-CALORIE MALNUTRITION Status: Chronic - Plan cont current plan of care, continue antibiotics * counselled to avoid coccaine abuse * continue empiric antibiotic as below * urology recommendation noted * discussed with nephrology * continue bicarb drip * medication reviewed as below * symptomatic treatment. Review of Systems - Review of Systems Constitutional: negative: Fever, Chills, Sweats, Weakness, Malaise, Other ENT: negative: Ear Pain, Ear Discharge, Nose Pain, Nose Discharge, Nose Congestion, Mouth Pain, Mouth Swelling, Throat Pain, Throat Swelling, Other Respiratory: negative: Cough, Dry, Shortness of Breath, Hemoptysis, SOB with Excertion, Pleuritic Pain, Sputum, Wheezing Cardiovascular: negative: Chest Pain, Palpitations, Orthopnea, Paroxysmal Noc. Dyspnea, Edema, Light Headedness, Other Gastrointestinal: negative: Nausea, Vomiting, Abdominal Pain, Diarrhea, Constipation, Melena, Hematochezia, Other Genitourinary: negative: Dysuria, Frequency, Incontinence, Hematuria, Retention , Other Musculoskeletal: negative: Neck Pain, Shoulder Pain, Arm Pain, Back Pain, Hand Pain, Leg Pain, Foot Pain, Other - Medications/Allergies Allergies/Adverse Reactions: Allergies Allergy/AdvReac Type Severity Reaction Status Date / Time No Known Drug Allergies Allergy Verified 05/09/17 07:17 Medications: Current Medications Acetaminophen (Tylenol) 650 mg PO Q4H PRN PRN Reason: Headache/Fever or Pain Al Hydroxide/Mg Hydroxide (Maalox) 30 ml PO Q6H PRN PRN Reason: Heartburn or Indigestion Amlodipine Besylate (Norvasc) 10 mg PO DAILY [facility] Last Admin: 08/03/17 08:44 Dose: 10 mg Artificial Tears (Tears Naturale) 0 drop EA EYE PRN PRN PRN Reason: Dry Eyes Benzonatate (Tessalon) 100 mg PO Q4H PRN PRN Reason: Cough Bisacodyl (Dulcolax) 10 mg PO DAILYPRN PRN PRN Reason: Constipation Last Admin: 08/03/17 10:35 Dose: 10 mg Calcium Carbonate (Tums) 1,000 mg PO Q4H PRN PRN Reason: Heartburn or Indigestion Carvedilol (Coreg) 6.25 mg PO BID [facility] Last Admin: 08/03/17 08:44 Dose: 6.25 mg Clonidine (Catapres) 0.1 mg PO Q4H PRN PRN Reason: Systolic BP > 160 Last Admin: 08/02/17 06:24 Dose: 0.1 mg Dextrose/Water (Dextrose 50%) 25 gm SLOW IVP PRN PRN PRN Reason: Hypoglycemia Famotidine (Pepcid) 20 mg PO Q24HR [facility] Last Admin: 08/02/17 21:32 Dose: 20 mg Ferrous Sulfate (Feosol) 325 mg PO BID[facility] Last Admin: 08/03/17 08:45 Dose: 325 mg Glucagon (Glucagon) 1 mg IM PRN PRN PRN Reason: Hypoglycemia Guaifenesin (Robitussin Sf) 200 mg PO Q4H PRN PRN Reason: Cough Heparin Sodium (Porcine) (Heparin) 5,000 units SC BID [facility] Last Admin: 08/03/17 08:45 Dose: 5,000 units Hydralazine HCl (Apresoline) 10 mg SLOW IVP Q4H PRN PRN Reason: Systolic BP > 170 Last Admin: 08/02/17 23:06 Dose: 10 mg Hydralazine HCl (Apresoline) 25 mg PO TID [facility] Last Admin: 08/03/17 08:43 Dose: 25 mg Dextrose/Water (D5w) 1,000 mls @ 0 mls/hr IV .Q0M PRN; As Directed PRN Reason: Hypoglycemia Vancomycin HCl 750 mg/ Sodium (Chloride) 250 mls @ 250 mls/hr IVPB Q2D@1500 ANGE Piperacillin Sod/Tazobactam (Sod 2.25 gm/ Sodium Chloride) 100 mls @ 200 mls/ hr IVPB 0800,1600,2359 [facility] Last Admin: 08/03/17 08:43 Dose: 100 mls Insulin Detemir 15 units/ (Miscellaneous Medication) 0.15 mls @ 0 mls/hr SC HS [facility] Last Admin: 08/02/17 21:33 Dose: 0.15 mls Sodium Bicarbonate 150 meq/ (Dextrose/Water) 1,150 mls @ 75 mls/hr IV .[id number] [facility] Last Admin: 08/03/17 08:58 Dose: 1,150 mls Insulin Human Regular (Humulin R) 0 units SC .MODERATE SLIDING SC PRN; Protocol PRN Reason: MODERATE SLIDING SCALE Insulin Human Regular (Humulin R) 0 units SC .BEDTIME SLIDING SC PRN; Protocol PRN Reason: BEDTIME SLIDING SCALE Last Admin: 08/03/17 01:00 Dose: 3 unit Loperamide HCl (Imodium) 2 mg PO PRN PRN PRN Reason: Diarrhea/Loose Stools Loratadine (Claritin) 10 mg PO DAILYPRN PRN PRN Reason: Sinus Symptoms Lorazepam (Ativan) 1 mg PO Q4H PRN PRN Reason: Anxiety/Agitation Magnesium Hydroxide (Milk Of Magnesium) 30 ml PO DAILYPRN PRN PRN Reason: Constipation Mineral Oil/White Petrolatum (Eucerin Cream) 0 gm TOP BIDPRN PRN PRN Reason: Dry Skin Miscellaneous Medication (Pharmacy To Dose) 1 each IVPB PRN PRN PRN Reason: PHARMACY TO DOSE Nitroglycerin (Nitrostat) 0.4 mg SL Q5MIN PRN PRN Reason: Chest Pain Ondansetron HCl (Zofran Odt) 4 mg PO Q6H PRN PRN Reason: Nausea/Vomiting Ondansetron HCl (Zofran) 4 mg IVP Q6H PRN PRN Reason: Nausea/Vomiting Phenol (Chloraseptic [place] 180 Ml Bot) 0 ml PO PRN PRN PRN Reason: Sore Throat Senna (Senokot) 2 tab PO HSPRN PRN PRN Reason: Constipation Sodium Chloride ([place] Nasal Clio 0.65%) 0 ml EA NARE QIDPRN PRN PRN Reason: Nasal Congestion Tamsulosin HCl (Flomax) 0.4 mg PO DAILY [facility] Last Admin: 08/03/17 08:45 Dose: 0.4 mg Temazepam (Restoril) 15 mg PO HSPRN PRN PRN Reason: Insomnia Tramadol HCl (Ultram) 50 mg PO Q4H PRN PRN Reason: Moderate Pain (4-6)
[2017-08-03] MEDS ORDERED: Vancomycin HCl 750 MG in Sodium Chloride 0.9% 250 ML 250 ML IVPB SCH (15:00)
[2017-08-03] MEDS: Famotidine 20 MG TAB PO SCH (21:20)
[2017-08-03] MEDS: Insulin Detemir 100 UNITS/ML 15 UNITS in Pre-Filled Syringe 1 EACH SC SCH (21:25)
--- NOTE | 2017-08-03 21:43 | PRG ---
DATE OF SERVICE: 08/03/2017 SUBJECTIVE: The patient was seen and examined at the bedside and overnight events noted. The patie nt denies any shortness of breath or chest pain or palpitation. No history of nausea, vomiting, alvaro rrhea, fever, chills, or cramps. OBJECTIVE: GENERAL: This is a well-built male in no apparent distress. VITAL SIGNS: Temperature 98, pulse 85, respiratory rate 18, blood pressure 180/88. HEENT: Atraumatic, normocephalic. Oral mucosa is moist. NECK: Supple. CARDIOVASCULAR: S1 and S2 heard. Rate and rhythm regular. RESPIRATORY: Clear to auscultation. GASTROINTESTINAL: Abdomen is soft. MUSCULOSKELETAL: No tenderness. No edema. DERMATOLOGIC: No skin rash. NEUROLOGIC: Alert, awake, and oriented x3. No focal neurologic deficits. Moving all the extremiti es. PSYCHIATRIC: Mood and affect normal. LABORATORY DATA: Potassium is 4.2, BUN is 52, creatinine is 5.6. ASSESSMENT AND PLAN: 1. Acute kidney injury on chronic kidney disease stage 4. Renal function is stable. The patient r efused to have dialysis at this point. 2. Acidosis. 3. Anemia. 4. Hypertension. 5. Edema. 6. Continue hydration. No acute indication for dialysis, but the patient refused to have dialysis at this point.
[2017-08-04] MEDS: Sodium Bicarbonate 150 MEQ in Dextrose 5% in Water 1,000 ML IV SCH ×4 (04:53→05:22)
[2017-08-04 05:18] LABS: #Eosinphils 0.6 thou/uL (0.0-0.7); #Lymphocytes 1.4 thou/uL (1.20-3.40); #Monocytes 0.6 thou/uL (0.11-0.59); #Neutrophils 6.3 thou/uL (1.40-6.50); %Basophils 0.4 % (0.0-1.0); %Eosinophils 6.7 % (0.0-10.0); %Monocytes 6.2 % (0.0-10.0); Hematocrit 22.3 % (42.0-52.0); Mean Platelet Volume 7.9 fL (7.4-10.4)
[2017-08-04] MEDS: Insulin Regular 300 UNITS/3 ML VIAL SC PRN ×3 (05:19→16:57)
[2017-08-04 05:30] LABS: Anion Gap 12 mmol/L (10-20); BUN (Urea Nitrogen) 48 mg/dL (8.4-25.7); BUN/Creatinine Ratio 8.47; Calc. Creatinine Clearance 14 mL/min (70-130); Calcium 7.5 mg/dL (7.8-10.44); Carbon Dioxide 20 mmol/L (22-29); Chloride 106 mmol/L (98-107); Estimated GFR-MDRD 13; Phosphorus 5.4 mg/dL (2.3-4.7)
[2017-08-04] MEDS: Heparin 5,000 UNITS/ML VIAL SC SCH ×2 (08:37→21:23)
[2017-08-04] MEDS: Piperacillin/Tazobactam 2.25 GM in Sodium Chloride 0.9% 100 ML IVPB SCH ×3 (08:37→23:14)
[2017-08-04] MEDS: Carvedilol 6.25 MG TAB PO SCH (08:37)
[2017-08-04] MEDS: Tamsulosin HCl 0.4 MG CAP PO SCH (08:38)
[2017-08-04] MEDS: Amlodipine 10 MG TAB PO SCH (08:38)
[2017-08-04] MEDS: Ferrous Sulfate 325 MG TAB PO SCH ×2 (08:38→16:57)
[2017-08-04] MEDS: NIFEdipine XL 30 MG TAB PO SCH (08:40)
[2017-08-04] MEDS: hydrALAZINE 25 MG TAB PO SCH ×3 (08:41→21:23)
[2017-08-04] MEDS: Sevelamer Carbonate 800 MG TAB PO SCH ×3 (08:41→16:57)
--- NOTE | 2017-08-04 11:21 | PDOC.PN ---
- Subjective Encounter Start Date: 08/04/17 Encounter Start Time: 09:40 Patient seen and examined. No new complaints. No overnight events - Objective MAR Reviewed: Yes Vital Signs & Weight: Vital Signs (12 hours) Temp Pulse Resp BP BP BP Pulse Ox 08/04/17 08:41 93 186/95 H 08/04/17 08:40 93 186/95 H 08/04/17 08:38 93 186/85 H 08/04/17 08:37 186/95 H 08/04/17 08:00 98.6 F 93 18 186/95 H 98 08/04/17 05:00 172/92 H 08/04/17 04:00 98.7 F 94 20 94 L 08/04/17 00:38 99 Weight Admit Weight 149 lb 14.624 oz Weight 149 lb 14.624 oz I&O: 08/03/17 08/04/17 08/05/17 06:59 06:59 06:59 Intake Total 2299.6 1380 Output Total 525 500 Balance 1774.6 880 Result Diagrams: 08/04/17 04:17 08/04/17 04:17 Additional Labs: Accuchecks 08/04/17 08/03/17 08/03/17 05:04 20:22 15:37 POC Glucose 231 H 280 H 174 H 08/03/17 11:27 POC Glucose 120 H Phys Exam - Physical Examination Constitutional: NAD HEENT: PERRLA, moist MMs, sclera anicteric Neck: no JVD, supple Respiratory: no wheezing, no rales, no rhonchi Cardiovascular: RRR, no significant murmur, no rub Gastrointestinal: soft, non-tender, no distention, positive bowel sounds Musculoskeletal: no edema, pulses present right BKA, scrotal edema improving Neurological: non-focal, normal sensation Lymphatic: no nodes Psychiatric: normal affect, A&O x 3 Skin: no rash, normal turgor Dx/Plan (1) Acute worsening of stage 4 chronic kidney disease Code(s): N28.9 - DISORDER OF KIDNEY AND URETER, UNSPECIFIED; N18.4 - CHRONIC KIDNEY DISEASE, STAGE 4 (SEVERE) Status: Acute (2) Cellulitis of scrotum Code(s): N49.2 - INFLAMMATORY DISORDERS OF SCROTUM Status: Acute (3) Hx of BKA Code(s): Z89.519 - ACQUIRED ABSENCE OF UNSPECIFIED LEG BELOW KNEE Status: Acute Qualifiers: Laterality: right Qualified Code(s): Z89.511 - Acquired absence of right leg below knee (4) Metabolic acidosis Code(s): E87.2 - ACIDOSIS Status: Acute (5) Anemia of renal disease Code(s): D63.1 - ANEMIA IN CHRONIC KIDNEY DISEASE Status: Chronic (6) BPH (benign prostatic hyperplasia) Code(s): N40.0 - BENIGN PROSTATIC HYPERPLASIA WITHOUT LOWER URINRY TRACT SYMP Status: Chronic (7) Chronic combined systolic and diastolic heart failure Code(s): I50.42 - CHRONIC COMBINED SYSTOLIC AND DIASTOLIC HRT FAIL Status: Chronic (8) Cocaine abuse Code(s): F14.10 - COCAINE ABUSE, UNCOMPLICATED Status: Chronic (9) Diabetic neuropathy Code(s): E11.40 - TYPE 2 DIABETES MELLITUS WITH DIABETIC NEUROPATHY, UNSP Status: Chronic Qualifiers: Diabetes mellitus type: type 2 (10) FTT (failure to thrive) in adult Status: Chronic (11) Hypertension Code(s): I10 - ESSENTIAL (PRIMARY) HYPERTENSION Status: Chronic Qualifiers: Hypertension type: essential hypertension Qualified Code(s): I10 - Essential (primary) hypertension (12) Moderate protein-calorie malnutrition Code(s): E44.0 - MODERATE PROTEIN-CALORIE MALNUTRITION Status: Chronic - Plan cont current plan of care, continue antibiotics * change hydralazin 50 mg po tid * add procardia xl 30 mg po daily * continue iv antibiotics * add renvela * medication reviewed as below * symptomatic treatment. * continue vancomycin and zosyn Review of Systems - Review of Systems ENT: negative: Ear Pain, Ear Discharge, Nose Pain, Nose Discharge, Nose Congestion, Mouth Pain, Mouth Swelling, Throat Pain, Throat Swelling, Other Respiratory: negative: Cough, Dry, Shortness of Breath, Hemoptysis, SOB with Excertion, Pleuritic Pain, Sputum, Wheezing Cardiovascular: negative: Chest Pain, Palpitations, Orthopnea, Paroxysmal Noc. Dyspnea, Edema, Light Headedness, Other Gastrointestinal: negative: Nausea, Vomiting, Abdominal Pain, Diarrhea, Constipation, Melena, Hematochezia, Other Genitourinary: negative: Dysuria, Frequency, Incontinence, Hematuria, Retention , Other Musculoskeletal: negative: Neck Pain, Shoulder Pain, Arm Pain, Back Pain, Hand Pain, Leg Pain, Foot Pain, Other Skin: negative: Rash, Lesions, Panchito, Bruising, Other - Medications/Allergies Allergies/Adverse Reactions: Allergies Allergy/AdvReac Type Severity Reaction Status Date / Time No Known Drug Allergies Allergy Verified 05/09/17 07:17 Medications: Current Medications Acetaminophen (Tylenol) 650 mg PO Q4H PRN PRN Reason: Headache/Fever or Pain Al Hydroxide/Mg Hydroxide (Maalox) 30 ml PO Q6H PRN PRN Reason: Heartburn or Indigestion Amlodipine Besylate (Norvasc) 10 mg PO DAILY [facility] Last Admin: 08/04/17 08:38 Dose: 10 mg Artificial Tears (Tears Naturale) 0 drop EA EYE PRN PRN PRN Reason: Dry Eyes Benzonatate (Tessalon) 100 mg PO Q4H PRN PRN Reason: Cough Bisacodyl (Dulcolax) 10 mg PO DAILYPRN PRN PRN Reason: Constipation Last Admin: 08/03/17 10:35 Dose: 10 mg Calcium Carbonate (Tums) 1,000 mg PO Q4H PRN PRN Reason: Heartburn or Indigestion Carvedilol (Coreg) 6.25 mg PO BID [facility] Last Admin: 08/04/17 08:37 Dose: 6.25 mg Clonidine (Catapres) 0.1 mg PO Q4H PRN PRN Reason: Systolic BP > 160 Last Admin: 08/02/17 06:24 Dose: 0.1 mg Dextrose/Water (Dextrose 50%) 25 gm SLOW IVP PRN PRN PRN Reason: Hypoglycemia Famotidine (Pepcid) 20 mg PO Q24HR [facility] Last Admin: 08/03/17 21:20 Dose: 20 mg Ferrous Sulfate (Feosol) 325 mg PO BID-[facility] Last Admin: 08/04/17 08:38 Dose: 325 mg Glucagon (Glucagon) 1 mg IM PRN PRN PRN Reason: Hypoglycemia Guaifenesin (Robitussin Sf) 200 mg PO Q4H PRN PRN Reason: Cough Heparin Sodium (Porcine) (Heparin) 5,000 units SC BID [facility] Last Admin: 08/04/17 08:37 Dose: 5,000 units Hydralazine HCl (Apresoline) 10 mg SLOW IVP Q4H PRN PRN Reason: Systolic BP > 170 Last Admin: 08/02/17 23:06 Dose: 10 mg Hydralazine HCl (Apresoline) 50 mg PO TID [facility] Last Admin: 08/04/17 08:41 Dose: 50 mg Dextrose/Water (D5w) 1,000 mls @ 0 mls/hr IV .Q0M PRN; As Directed PRN Reason: Hypoglycemia Vancomycin HCl 750 mg/ Sodium (Chloride) 250 mls @ 250 mls/hr IVPB Q2D@1500 [facility] Last Admin: 08/03/17 15:47 Dose: 250 mls Piperacillin Sod/Tazobactam (Sod 2.25 gm/ Sodium Chloride) 100 mls @ 200 mls/ hr IVPB 0800,1600,2359 [facility] Last Admin: 08/04/17 08:37 Dose: 100 mls Insulin Detemir 15 units/ (Miscellaneous Medication) 0.15 mls @ 0 mls/hr SC HS [facility] Last Admin: 08/03/17 21:25 Dose: 0.15 mls Sodium Bicarbonate 150 meq/ (Dextrose/Water) 1,150 mls @ 75 mls/hr IV .[id number] [facility] Last Admin: 08/04/17 05:22 Dose: 1,150 mls Insulin Human Regular (Humulin R) 0 units SC .MODERATE SLIDING SC PRN; Protocol PRN Reason: MODERATE SLIDING SCALE Last Admin: 08/04/17 05:19 Dose: 4 unit Insulin Human Regular (Humulin R) 0 units SC .BEDTIME SLIDING SC PRN; Protocol PRN Reason: BEDTIME SLIDING SCALE Last Admin: 08/03/17 01:00 Dose: 3 unit Loperamide HCl (Imodium) 2 mg PO PRN PRN PRN Reason: Diarrhea/Loose Stools Loratadine (Claritin) 10 mg PO DAILYPRN PRN PRN Reason: Sinus Symptoms Lorazepam (Ativan) 1 mg PO Q4H PRN PRN Reason: Anxiety/Agitation Magnesium Hydroxide (Milk Of Magnesium) 30 ml PO DAILYPRN PRN PRN Reason: Constipation Mineral Oil/White Petrolatum (Eucerin Cream) 0 gm TOP BIDPRN PRN PRN Reason: Dry Skin Miscellaneous Medication (Pharmacy To Dose) 1 each IVPB PRN PRN PRN Reason: PHARMACY TO DOSE Nifedipine (Procardia Xl) 30 mg PO DAILY [facility] Last Admin: 08/04/17 08:40 Dose: 30 mg Nitroglycerin (Nitrostat) 0.4 mg SL Q5MIN PRN PRN Reason: Chest Pain Ondansetron HCl (Zofran Odt) 4 mg PO Q6H PRN PRN Reason: Nausea/Vomiting Ondansetron HCl (Zofran) 4 mg IVP Q6H PRN PRN Reason: Nausea/Vomiting Phenol (Chloraseptic [place] 180 Ml Bot) 0 ml PO PRN PRN PRN Reason: Sore Throat Senna (Senokot) 2 tab PO HSPRN PRN PRN Reason: Constipation Sevelamer Carbonate (Renvela) 800 mg PO TID-[facility] Last Admin: 08/04/17 08:41 Dose: 800 mg Sodium Chloride ([place] Nasal [place] 0.65%) 0 ml EA NARE QIDPRN PRN PRN Reason: Nasal Congestion Tamsulosin HCl (Flomax) 0.4 mg PO DAILY [facility] Last Admin: 08/04/17 08:38 Dose: 0.4 mg Temazepam (Restoril) 15 mg PO HSPRN PRN PRN Reason: Insomnia Tramadol HCl (Ultram) 50 mg PO Q4H PRN PRN Reason: Moderate Pain (4-6)
[2017-08-04] MEDS ORDERED: Carvedilol 6.25 MG TAB PO SCH (12:12)
[2017-08-04] MEDS: Epoetin (ESRD) 10,000 UNITS/ML VIAL SC SCH (13:38)
[2017-08-04] MEDS: Sodium Bicarbonate Tab 325 MG TAB PO SCH ×2 (14:02→21:23)
--- NOTE | 2017-08-04 14:17 | PRG ---
DATE OF SERVICE: 08/04/2017 SUBJECTIVE: Patient was seen and examined at bedside and overnight events noted. Patient denies an y shortness of breath or chest pain or palpitation. No history of nausea or vomiting or diarrhea or fever or chills or cramps. OBJECTIVE: GENERAL: This is a well-built white male, in no apparent distress. VITAL SIGNS: Temperature 96, pulse 72, respiration 18, blood pressure 186/95. HEENT: Atraumatic, normocephalic. Oral mucosa is moist. NECK: Supple. CARDIOVASCULAR: S1, S2 heard. Rate and rhythm regular. RESPIRATORY: Clear to auscultation. GASTROINTESTINAL: Abdomen is soft. MUSCULOSKELETAL: No tenderness, no edema. DERMATOLOGIC: No skin rash. NEUROLOGIC: Alert and awake and oriented x3. No focal neurologic deficits. Moving all the extremi ties. PSYCHIATRIC: Mood and affect normal. LABORATORY DATA: Potassium is 4.1, BUN 48, creatinine 5.6, bicarbonate is 20. ASSESSMENT AND PLAN: 1. Acute kidney injury on chronic kidney disease stage 5. No significant improvement with hydratio n. We will stop IV fluids. 2. Acidosis, stop bicarbonate drip. Start on oral bicarbonate. 3. Hypertension, try to up titrate medications. 4. Anemia of chronic disease. 5. Edema. Plan is to give a dose of Procrit and the patient refused to have dialysis at this point. The patie nt was counseled. Also refuses fistula placement. We will continue to monitor. Patient was counse led to avoid cocaine use in the future.
[2017-08-04] MEDS: Calcium Acetate 667 MG CAP PO SCH (16:56)
[2017-08-04] MEDS: Carvedilol 25 MG TAB PO SCH (21:23)
[2017-08-04] MEDS: Insulin Detemir 100 UNITS/ML 15 UNITS in Pre-Filled Syringe 1 EACH SC SCH (21:23)
[2017-08-04] MEDS: Famotidine 20 MG TAB PO SCH (21:23)
[2017-08-05 06:29] LABS: Anion Gap 13 mmol/L (10-20); BUN (Urea Nitrogen) 46 mg/dL (8.4-25.7); Calc. Creatinine Clearance 15 mL/min (70-130); Calcium 7.4 mg/dL (7.8-10.44); Carbon Dioxide 23 mmol/L (22-29); Chloride 106 mmol/L (98-107); Estimated GFR-MDRD 13
[2017-08-05] MEDS: Piperacillin/Tazobactam 2.25 GM in Sodium Chloride 0.9% 100 ML IVPB SCH ×2 (08:37→17:09)
[2017-08-05] MEDS: Tamsulosin HCl 0.4 MG CAP PO SCH (08:41)
[2017-08-05] MEDS: Carvedilol 25 MG TAB PO SCH ×2 (08:41→21:30)
[2017-08-05] MEDS: Sevelamer Carbonate 800 MG TAB PO SCH ×2 (08:41→11:42)
[2017-08-05] MEDS: Calcium Acetate 667 MG CAP PO SCH ×3 (08:42→18:01)
[2017-08-05] MEDS: Ferrous Sulfate 325 MG TAB PO SCH ×2 (08:42→18:01)
[2017-08-05] MEDS: hydrALAZINE 25 MG TAB PO SCH ×3 (08:42→21:30)
[2017-08-05] MEDS: NIFEdipine XL 30 MG TAB PO SCH (08:42)
[2017-08-05] MEDS: Heparin 5,000 UNITS/ML VIAL SC SCH ×2 (08:43→21:30)
[2017-08-05] MEDS: Sodium Bicarbonate Tab 325 MG TAB PO SCH ×3 (08:45→21:30)
[2017-08-05] MEDS: HYDROcodone/Acetaminophen 5/325 mg Tablet PO PRN ×2 (11:42→15:44)
--- NOTE | 2017-08-05 12:47 | PRG ---
DATE OF SERVICE: 08/05/2017 SUBJECTIVE: Patient was seen and examined at bedside and overnight events noted. Patient denies an y shortness of breath or chest pain or palpitation. No history of nausea or vomiting or diarrhea or fever or chills or cramps. OBJECTIVE: General: This is a well-built male in no apparent distress. VITAL SIGNS: Temperature 97.3, pulse 80, respiratory 18, blood pressure 144/74. HEENT: Atraumatic, normocephalic. Oral mucosa is moist. NECK: Supple. CARDIOVASCULAR: S1, S2 heard. Rate and rhythm regular. RESPIRATORY: Clear to auscultation. GASTROINTESTINAL: Abdomen is soft. MUSCULOSKELETAL: No tenderness, no edema. DERMATOLOGIC: No skin rash. NEUROLOGIC: Alert and awake and oriented x3. No focal neurologic deficits. Moving all the extremi ties. Psychiatric: Mood and affect normal. LABORATORY DATA: Potassium 3.6, BUN 46, creatinine is 5.5. ASSESSMENT AND PLAN: 1. Acute kidney injury on chronic kidney disease. Renal function is stable. 2. Acidosis, better. 3. Hypertension. 4. Anemia of chronic disease. 5. Edema, controlled. 6. Continue oral bicarbonate. Renal function is stable. We will follow.
--- NOTE | 2017-08-05 13:02 | PDOC.PN ---
- Subjective Encounter Start Date: 08/05/17 Encounter Start Time: 09:40 Patient seen and examined. c/o scrotal and penile pain. No overnight events - Objective MAR Reviewed: Yes Vital Signs & Weight: Vital Signs (12 hours) Temp Pulse Resp BP BP Pulse Ox 08/05/17 08:50 97.3 F L 88 18 180/95 H 95 08/05/17 08:42 88 180/95 H 08/05/17 08:00 97.3 F L 88 18 95 08/05/17 01:01 98.1 F 90 18 144/74 H Weight Admit Weight 149 lb 14.624 oz Weight 149 lb 14.624 oz I&O: 08/04/17 08/05/17 08/06/17 06:59 06:59 06:59 Intake Total 1380 800 Output Total 500 300 Balance 880 500 Result Diagrams: 08/04/17 04:17 08/05/17 04:45 Additional Labs: Accuchecks 08/05/17 08/05/17 08/04/17 11:51 05:56 21:07 POC Glucose 111 H 139 H 184 H 08/04/17 16:52 POC Glucose 203 H Phys Exam - Physical Examination Constitutional: NAD HEENT: PERRLA, moist MMs, sclera anicteric Neck: no JVD, supple Respiratory: no wheezing, no rales, no rhonchi Cardiovascular: RRR, no significant murmur, no rub Gastrointestinal: soft, non-tender, no distention, positive bowel sounds right BKA, scrotum and penile swelling Neurological: non-focal, normal sensation Lymphatic: no nodes Psychiatric: normal affect Skin: no rash, normal turgor Dx/Plan (1) Acute worsening of stage 4 chronic kidney disease Code(s): N28.9 - DISORDER OF KIDNEY AND URETER, UNSPECIFIED; N18.4 - CHRONIC KIDNEY DISEASE, STAGE 4 (SEVERE) Status: Acute (2) Cellulitis of scrotum Code(s): N49.2 - INFLAMMATORY DISORDERS OF SCROTUM Status: Acute (3) Hx of BKA Code(s): Z89.519 - ACQUIRED ABSENCE OF UNSPECIFIED LEG BELOW KNEE Status: Acute Qualifiers: Laterality: right Qualified Code(s): Z89.511 - Acquired absence of right leg below knee (4) Metabolic acidosis Code(s): E87.2 - ACIDOSIS Status: Acute (5) Anemia of renal disease Code(s): D63.1 - ANEMIA IN CHRONIC KIDNEY DISEASE Status: Chronic (6) BPH (benign prostatic hyperplasia) Code(s): N40.0 - BENIGN PROSTATIC HYPERPLASIA WITHOUT LOWER URINRY TRACT SYMP Status: Chronic (7) Chronic combined systolic and diastolic heart failure Code(s): I50.42 - CHRONIC COMBINED SYSTOLIC AND DIASTOLIC HRT FAIL Status: Chronic (8) Cocaine abuse Code(s): F14.10 - COCAINE ABUSE, UNCOMPLICATED Status: Chronic (9) Diabetic neuropathy Code(s): E11.40 - TYPE 2 DIABETES MELLITUS WITH DIABETIC NEUROPATHY, UNSP Status: Chronic Qualifiers: Diabetes mellitus type: type 2 (10) FTT (failure to thrive) in adult Status: Chronic (11) Hypertension Code(s): I10 - ESSENTIAL (PRIMARY) HYPERTENSION Status: Chronic Qualifiers: Hypertension type: essential hypertension Qualified Code(s): I10 - Essential (primary) hypertension (12) Moderate protein-calorie malnutrition Code(s): E44.0 - MODERATE PROTEIN-CALORIE MALNUTRITION Status: Chronic - Plan cont current plan of care, continue antibiotics * continue IV antibiotics, vancomycin and zosyn * keep scrotum elevated * still has no significant improvement * renal function stable and improving * will change procardia 60 mg po daily. * continue phoslo, sodium bicarbonate * not ready for discharge yet * [place] for pain control Review of Systems - Review of Systems ENT: negative: Ear Pain, Ear Discharge, Nose Pain, Nose Discharge, Nose Congestion, Mouth Pain, Mouth Swelling, Throat Pain, Throat Swelling, Other Respiratory: negative: Cough, Dry, Shortness of Breath, Hemoptysis, SOB with Excertion, Pleuritic Pain, Sputum, Wheezing Cardiovascular: negative: Chest Pain, Palpitations, Orthopnea, Paroxysmal Noc. Dyspnea, Edema, Light Headedness, Other Gastrointestinal: negative: Nausea, Vomiting, Abdominal Pain, Diarrhea, Constipation, Melena, Hematochezia, Other Genitourinary: negative: Dysuria, Frequency, Incontinence, Hematuria, Retention , Other Musculoskeletal: negative: Neck Pain, Shoulder Pain, Arm Pain, Back Pain, Hand Pain, Leg Pain, Foot Pain, Other Skin: negative: Rash, Lesions, Panchito, Bruising, Other - Medications/Allergies Allergies/Adverse Reactions: Allergies Allergy/AdvReac Type Severity Reaction Status Date / Time No Known Drug Allergies Allergy Verified 05/09/17 07:17 Medications: Current Medications Acetaminophen (Tylenol) 650 mg PO Q4H PRN PRN Reason: Headache/Fever or Pain Hydrocodone Bitart/Acetaminophen ([place] 5/325) 1 tab PO Q4H PRN PRN Reason: Pain Last Admin: 08/05/17 11:42 Dose: 1 tab Al Hydroxide/Mg Hydroxide (Maalox) 30 ml PO Q6H PRN PRN Reason: Heartburn or Indigestion Artificial Tears (Tears Naturale) 0 drop EA EYE PRN PRN PRN Reason: Dry Eyes Benzonatate (Tessalon) 100 mg PO Q4H PRN PRN Reason: Cough Bisacodyl (Dulcolax) 10 mg PO DAILYPRN PRN PRN Reason: Constipation Last Admin: 08/03/17 10:35 Dose: 10 mg Calcium Acetate (Phoslo) 667 mg PO TID-[facility] Last Admin: 08/05/17 11:43 Dose: 667 mg Calcium Carbonate (Tums) 1,000 mg PO Q4H PRN PRN Reason: Heartburn or Indigestion Carvedilol (Coreg) 25 mg PO BID [facility] Last Admin: 08/05/17 08:41 Dose: 25 mg Clonidine (Catapres) 0.1 mg PO Q4H PRN PRN Reason: Systolic BP > 160 Last Admin: 08/02/17 06:24 Dose: 0.1 mg Dextrose/Water (Dextrose 50%) 25 gm SLOW IVP PRN PRN PRN Reason: Hypoglycemia Epoetin Nikhil (Procrit) 10,000 units SC Q7D@1300 [facility] Last Admin: 08/04/17 13:38 Dose: 10,000 units Famotidine (Pepcid) 20 mg PO Q24HR [facility] Last Admin: 08/04/17 21:23 Dose: 20 mg Ferrous Sulfate (Feosol) 325 mg PO BID-[facility] Last Admin: 08/05/17 08:42 Dose: 325 mg Glucagon (Glucagon) 1 mg IM PRN PRN PRN Reason: Hypoglycemia Guaifenesin (Robitussin Sf) 200 mg PO Q4H PRN PRN Reason: Cough Heparin Sodium (Porcine) (Heparin) 5,000 units SC BID [facility] Last Admin: 08/05/17 08:43 Dose: 5,000 units Hydralazine HCl (Apresoline) 10 mg SLOW IVP Q4H PRN PRN Reason: Systolic BP > 170 Last Admin: 08/02/17 23:06 Dose: 10 mg Hydralazine HCl (Apresoline) 50 mg PO TID [facility] Last Admin: 08/05/17 08:42 Dose: 50 mg Dextrose/Water (D5w) 1,000 mls @ 0 mls/hr IV .Q0M PRN; As Directed PRN Reason: Hypoglycemia Vancomycin HCl 750 mg/ Sodium (Chloride) 250 mls @ 250 mls/hr IVPB Q2D@1500 [facility] Last Admin: 08/03/17 15:47 Dose: 250 mls Piperacillin Sod/Tazobactam (Sod 2.25 gm/ Sodium Chloride) 100 mls @ 200 mls/ hr IVPB 0800,1600,2359 [facility] Last Admin: 08/05/17 08:37 Dose: 100 mls Insulin Detemir 15 units/ (Miscellaneous Medication) 0.15 mls @ 0 mls/hr SC HS [facility] Last Admin: 08/04/17 21:23 Dose: 0.15 mls Insulin Human Regular (Humulin R) 0 units SC .MODERATE SLIDING SC PRN; Protocol PRN Reason: MODERATE SLIDING SCALE Last Admin: 08/04/17 16:57 Dose: 4 unit Insulin Human Regular (Humulin R) 0 units SC .BEDTIME SLIDING SC PRN; Protocol PRN Reason: BEDTIME SLIDING SCALE Last Admin: 08/03/17 01:00 Dose: 3 unit Loperamide HCl (Imodium) 2 mg PO PRN PRN PRN Reason: Diarrhea/Loose Stools Loratadine (Claritin) 10 mg PO DAILYPRN PRN PRN Reason: Sinus Symptoms Lorazepam (Ativan) 1 mg PO Q4H PRN PRN Reason: Anxiety/Agitation Magnesium Hydroxide (Milk Of Magnesium) 30 ml PO DAILYPRN PRN PRN Reason: Constipation Mineral Oil/White Petrolatum (Eucerin Cream) 0 gm TOP BIDPRN PRN PRN Reason: Dry Skin Miscellaneous Medication (Pharmacy To Dose) 1 each IVPB PRN PRN PRN Reason: PHARMACY TO DOSE Nifedipine (Procardia Xl) 30 mg PO DAILY [facility] Last Admin: 08/05/17 08:42 Dose: 30 mg Nitroglycerin (Nitrostat) 0.4 mg SL Q5MIN PRN PRN Reason: Chest Pain Ondansetron HCl (Zofran Odt) 4 mg PO Q6H PRN PRN Reason: Nausea/Vomiting Ondansetron HCl (Zofran) 4 mg IVP Q6H PRN PRN Reason: Nausea/Vomiting Phenol (Chloraseptic [place] 180 Ml Bot) 0 ml PO PRN PRN PRN Reason: Sore Throat Senna (Senokot) 2 tab PO HSPRN PRN PRN Reason: Constipation Sevelamer Carbonate (Renvela) 800 mg PO TID-[facility] Last Admin: 08/05/17 11:42 Dose: 800 mg Sodium Bicarbonate (Bicarbonate, Sodium) 650 mg PO TID [facility] Last Admin: 08/05/17 08:45 Dose: 650 mg Sodium Chloride ([place] Nasal [place] 0.65%) 0 ml EA NARE QIDPRN PRN PRN Reason: Nasal Congestion Tamsulosin HCl (Flomax) 0.4 mg PO DAILY [facility] Last Admin: 08/05/17 08:41 Dose: 0.4 mg Temazepam (Restoril) 15 mg PO HSPRN PRN PRN Reason: Insomnia Tramadol HCl (Ultram) 50 mg PO Q4H PRN PRN Reason: Moderate Pain (4-6) Last Admin: 08/04/17 16:56 Dose: 50 mg
[2017-08-05 14:23] LABS: Vancomycin, Trough 11.9 ug/mL
[2017-08-05] MEDS ORDERED: Vancomycin HCl 1 GM in Premix Bag 1 BAG IVPB SCH (15:00)
[2017-08-05] MEDS: Insulin Detemir 100 UNITS/ML 15 UNITS in Pre-Filled Syringe 1 EACH SC SCH (21:29)
[2017-08-05] MEDS: Famotidine 20 MG TAB PO SCH (21:30)
[2017-08-06] MEDS: Piperacillin/Tazobactam 2.25 GM in Sodium Chloride 0.9% 100 ML IVPB SCH ×3 (00:11→15:28)
[2017-08-06 05:28] LABS: Anion Gap 12 mmol/L (10-20); BUN (Urea Nitrogen) 46 mg/dL (8.4-25.7); Calc. Creatinine Clearance 14 mL/min (70-130); Calcium 7.6 mg/dL (7.8-10.44); Carbon Dioxide 24 mmol/L (22-29); Chloride 107 mmol/L (98-107); Estimated GFR-MDRD 12
[2017-08-06] MEDS: Tamsulosin HCl 0.4 MG CAP PO SCH (08:17)
[2017-08-06] MEDS: Ferrous Sulfate 325 MG TAB PO SCH ×2 (08:17→16:33)
[2017-08-06] MEDS: Heparin 5,000 UNITS/ML VIAL SC SCH ×2 (08:17→20:55)
[2017-08-06] MEDS: Sodium Bicarbonate Tab 325 MG TAB PO SCH ×3 (08:17→20:55)
[2017-08-06] MEDS: Carvedilol 25 MG TAB PO SCH ×2 (08:17→20:55)
[2017-08-06] MEDS: hydrALAZINE 25 MG TAB PO SCH ×3 (08:18→20:55)
[2017-08-06] MEDS: Calcium Acetate 667 MG CAP PO SCH ×3 (08:18→16:33)
[2017-08-06] MEDS ORDERED: NIFEdipine XL 60 MG TAB PO SCH (09:00)
--- NOTE | 2017-08-06 10:49 | PRG ---
DATE OF SERVICE: 08/06/2017 NEPHROLOGY PROGRESS NOTE SUBJECTIVE: Patient was seen and examined at bedside and overnight events noted. Patient denies an y shortness of breath or chest pain or palpitation. No history of nausea or vomiting or diarrhea or fever or chills or cramps. OBJECTIVE: GENERAL: This is a well-built male in no apparent distress. VITAL SIGNS: Temperature 98.4, pulse 90, respiratory 16, blood pressure 174/87. HEENT: Atraumatic, normocephalic. Oral mucosa is moist. NECK: Supple. CARDIOVASCULAR: S1, S2 heard. Rate and rhythm regular. RESPIRATORY: Clear to auscultation. GASTROINTESTINAL: Abdomen is soft. MUSCULOSKELETAL: No tenderness. No edema. DERMATOLOGIC: No skin rash. NEUROLOGIC: Alert and awake and oriented x3. No focal neurologic deficits. Moving all the extremi ties. PSYCHIATRIC: Mood and affect normal. LABORATORY DATA: Potassium is 4.1, BUN is 46, creatinine is 5.9. ASSESSMENT AND PLAN: 1. Acute kidney injury on chronic kidney disease, stage 4. Renal function is stable. 2. Acidosis, stable. 3. Hypertension. 4. Anemia of chronic disease. 5. Edema controlled. 6. Continue Epogen. We will increase the Procardia to b.i.d. and we will follow.
[2017-08-06] MEDS: cloNIDine 0.1 MG TAB PO PRN (12:34)
--- NOTE | 2017-08-06 13:45 | PDOC.PN ---
- Subjective Encounter Start Date: 08/06/17 Encounter Start Time: 09:15 Patient seen and examined. No new complaints. No overnight events - Objective MAR Reviewed: Yes Vital Signs & Weight: Vital Signs (12 hours) Temp Pulse Resp BP BP Pulse Ox 08/06/17 12:34 187/95 H 08/06/17 11:30 98.3 F 92 16 189/95 H 96 08/06/17 09:24 175/87 H 08/06/17 08:18 90 189/96 H 08/06/17 08:17 90 189/96 H 08/06/17 08:00 98.3 F 92 16 96 08/06/17 07:13 98.4 F 90 16 189/96 H 98 08/06/17 04:55 98.5 F 92 18 176/84 H 98 Weight Admit Weight 149 lb 14.624 oz Weight 149 lb 14.624 oz I&O: 08/05/17 08/06/17 08/07/17 06:59 06:59 06:59 Intake Total 800 700 Output Total 300 400 320 Balance 500 300 -320 Result Diagrams: 08/04/17 04:17 08/06/17 04:24 Additional Labs: Accuchecks 08/06/17 08/06/17 08/05/17 11:30 04:54 20:50 POC Glucose 204 H 192 H 230 H 08/05/17 15:39 POC Glucose 161 H Phys Exam - Physical Examination Constitutional: NAD HEENT: PERRLA, moist MMs, sclera anicteric Neck: no JVD, supple Respiratory: no wheezing, no rales, no rhonchi Cardiovascular: RRR, no significant murmur, no rub Gastrointestinal: soft, non-tender, no distention, positive bowel sounds scrotal cellulitis Musculoskeletal: no edema, pulses present right BKA Neurological: non-focal, normal sensation Lymphatic: no nodes Psychiatric: normal affect Skin: no rash, normal turgor Dx/Plan (1) Acute worsening of stage 4 chronic kidney disease Code(s): N28.9 - DISORDER OF KIDNEY AND URETER, UNSPECIFIED; N18.4 - CHRONIC KIDNEY DISEASE, STAGE 4 (SEVERE) Status: Acute (2) Cellulitis of scrotum Code(s): N49.2 - INFLAMMATORY DISORDERS OF SCROTUM Status: Acute (3) Hx of BKA Code(s): Z89.519 - ACQUIRED ABSENCE OF UNSPECIFIED LEG BELOW KNEE Status: Acute Qualifiers: Laterality: right Qualified Code(s): Z89.511 - Acquired absence of right leg below knee (4) Metabolic acidosis Code(s): E87.2 - ACIDOSIS Status: Acute (5) Anemia of renal disease Code(s): D63.1 - ANEMIA IN CHRONIC KIDNEY DISEASE Status: Chronic (6) BPH (benign prostatic hyperplasia) Code(s): N40.0 - BENIGN PROSTATIC HYPERPLASIA WITHOUT LOWER URINRY TRACT SYMP Status: Chronic (7) Chronic combined systolic and diastolic heart failure Code(s): I50.42 - CHRONIC COMBINED SYSTOLIC AND DIASTOLIC HRT FAIL Status: Chronic (8) Cocaine abuse Code(s): F14.10 - COCAINE ABUSE, UNCOMPLICATED Status: Chronic (9) Diabetic neuropathy Code(s): E11.40 - TYPE 2 DIABETES MELLITUS WITH DIABETIC NEUROPATHY, UNSP Status: Chronic Qualifiers: Diabetes mellitus type: type 2 (10) FTT (failure to thrive) in adult Status: Chronic (11) Hypertension Code(s): I10 - ESSENTIAL (PRIMARY) HYPERTENSION Status: Chronic Qualifiers: Hypertension type: essential hypertension Qualified Code(s): I10 - Essential (primary) hypertension (12) Moderate protein-calorie malnutrition Code(s): E44.0 - MODERATE PROTEIN-CALORIE MALNUTRITION Status: Chronic - Plan cont current plan of care, continue antibiotics * continue iv antibiotics * as i do not see any improvement, i will consult ID. * unsure he will need longer iv antibiotics * his renal function is still has not improved * may be he will need rehab * medication reviewed as below * symptomatic treatment * wound care Review of Systems - Review of Systems ENT: negative: Ear Pain, Ear Discharge, Nose Pain, Nose Discharge, Nose Congestion, Mouth Pain, Mouth Swelling, Throat Pain, Throat Swelling, Other Respiratory: negative: Cough, Dry, Shortness of Breath, Hemoptysis, SOB with Excertion, Pleuritic Pain, Sputum, Wheezing Cardiovascular: negative: Chest Pain, Palpitations, Orthopnea, Paroxysmal Noc. Dyspnea, Edema, Light Headedness, Other Gastrointestinal: negative: Nausea, Vomiting, Abdominal Pain, Diarrhea, Constipation, Melena, Hematochezia, Other Genitourinary: negative: Dysuria, Frequency, Incontinence, Hematuria, Retention , Other - Medications/Allergies Allergies/Adverse Reactions: Allergies Allergy/AdvReac Type Severity Reaction Status Date / Time No Known Drug Allergies Allergy Verified 05/09/17 07:17 Medications: Current Medications Acetaminophen (Tylenol) 650 mg PO Q4H PRN PRN Reason: Headache/Fever or Pain Hydrocodone Bitart/Acetaminophen ([place] 5/325) 1 tab PO Q4H PRN PRN Reason: Pain Last Admin: 08/05/17 15:44 Dose: 1 tab Al Hydroxide/Mg Hydroxide (Maalox) 30 ml PO Q6H PRN PRN Reason: Heartburn or Indigestion Artificial Tears (Tears Naturale) 0 drop EA EYE PRN PRN PRN Reason: Dry Eyes Benzonatate (Tessalon) 100 mg PO Q4H PRN PRN Reason: Cough Bisacodyl (Dulcolax) 10 mg PO DAILYPRN PRN PRN Reason: Constipation Last Admin: 08/03/17 10:35 Dose: 10 mg [facility] ([facility]) [facility] Last Admin: 08/06/17 12:05 Dose: 667 mg Calcium Carbonate (Tums) 1,000 mg PO Q4H PRN PRN Reason: Heartburn or Indigestion Carvedilol (Coreg) 25 mg PO BID [facility] Last Admin: 08/06/17 08:17 Dose: 25 mg Clonidine (Catapres) 0.1 mg PO Q4H PRN PRN Reason: Systolic BP > 160 Last Admin: 08/06/17 12:34 Dose: 0.1 mg Dextrose/Water (Dextrose 50%) 25 gm SLOW IVP PRN PRN PRN Reason: Hypoglycemia Epoetin Nikhil (Procrit) 10,000 units SC Q7D@1300 [facility] Last Admin: 08/04/17 13:38 Dose: 10,000 units Famotidine (Pepcid) 20 mg PO Q24HR [facility] Last Admin: 08/05/17 21:30 Dose: 20 mg Ferrous Sulfate (Feosol) 325 mg PO BID-[facility] Last Admin: 08/06/17 08:17 Dose: 325 mg Glucagon (Glucagon) 1 mg IM PRN PRN PRN Reason: Hypoglycemia Guaifenesin (Robitussin Sf) 200 mg PO Q4H PRN PRN Reason: Cough Heparin Sodium (Porcine) (Heparin) 5,000 units SC BID [facility] Last Admin: 08/06/17 08:17 Dose: 5,000 units Hydralazine HCl (Apresoline) 10 mg SLOW IVP Q4H PRN PRN Reason: Systolic BP > 170 Last Admin: 08/02/17 23:06 Dose: 10 mg Hydralazine HCl (Apresoline) 50 mg PO TID [facility] Last Admin: 08/06/17 08:18 Dose: 50 mg Dextrose/Water (D5w) 1,000 mls @ 0 mls/hr IV .Q0M PRN; As Directed PRN Reason: Hypoglycemia Piperacillin Sod/Tazobactam (Sod 2.25 gm/ Sodium Chloride) 100 mls @ 200 mls/ hr IVPB 0800,1600,2359 [facility] Last Admin: 08/06/17 08:19 Dose: 100 mls Insulin Detemir 15 units/ (Miscellaneous Medication) 0.15 mls @ 0 mls/hr SC HS [facility] Last Admin: 08/05/17 21:29 Dose: 0.15 mls Vancomycin HCl 1 gm/ Device 200 mls @ 200 mls/hr IVPB Q2D@1500 [facility] Last Admin: 08/05/17 15:34 Dose: 200 mls Insulin Human Regular (Humulin R) 0 units SC .MODERATE SLIDING SC PRN; Protocol PRN Reason: MODERATE SLIDING SCALE Last Admin: 08/04/17 16:57 Dose: 4 unit Insulin Human Regular (Humulin R) 0 units SC .BEDTIME SLIDING SC PRN; Protocol PRN Reason: BEDTIME SLIDING SCALE Last Admin: 08/03/17 01:00 Dose: 3 unit Loperamide HCl (Imodium) 2 mg PO PRN PRN PRN Reason: Diarrhea/Loose Stools Loratadine (Claritin) 10 mg PO DAILYPRN PRN PRN Reason: Sinus Symptoms Lorazepam (Ativan) 1 mg PO Q4H PRN PRN Reason: Anxiety/Agitation Magnesium Hydroxide (Milk Of Magnesium) 30 ml PO DAILYPRN PRN PRN Reason: Constipation Mineral Oil/White Petrolatum (Eucerin Cream) 0 gm TOP BIDPRN PRN PRN Reason: Dry Skin Miscellaneous Medication (Pharmacy To Dose) 1 each IVPB PRN PRN PRN Reason: PHARMACY TO DOSE Nifedipine (Procardia Xl) 60 mg PO BID [facility] Nitroglycerin (Nitrostat) 0.4 mg SL Q5MIN PRN PRN Reason: Chest Pain Ondansetron HCl (Zofran Odt) 4 mg PO Q6H PRN PRN Reason: Nausea/Vomiting Ondansetron HCl (Zofran) 4 mg IVP Q6H PRN PRN Reason: Nausea/Vomiting Phenol (Chloraseptic [place] 180 Ml Bot) 0 ml PO PRN PRN PRN Reason: Sore Throat Senna (Senokot) 2 tab PO HSPRN PRN PRN Reason: Constipation Sodium Bicarbonate (Bicarbonate, Sodium) 650 mg PO TID [facility] Last Admin: 08/06/17 08:17 Dose: 650 mg Sodium Chloride ([place] Nasal [place] 0.65%) 0 ml EA NARE QIDPRN PRN PRN Reason: Nasal Congestion Tamsulosin HCl (Flomax) 0.4 mg PO DAILY [facility] Last Admin: 08/06/17 08:17 Dose: 0.4 mg Temazepam (Restoril) 15 mg PO HSPRN PRN PRN Reason: Insomnia Tramadol HCl (Ultram) 50 mg PO Q4H PRN PRN Reason: Moderate Pain (4-6) Last Admin: 08/04/17 16:56 Dose: 50 mg
[2017-08-06] MEDS: Insulin Regular 300 UNITS/3 ML VIAL SC PRN (15:30)
--- NOTE | 2017-08-06 15:52 | CON ---
DATE OF CONSULTATION: 08/06/2017 REASON FOR CONSULTATION: Scrotal swelling. HISTORY OF PRESENT ILLNESS: A 57-year-old whom I had seen a couple years ago when he presented with a history of urethral stricture, diabetes mellitus type 2, hypertension and a right heel ulcer with osteomyelitis. The patient end up with a BKA amputation and I have not seen him since. He was adm itted in 04/2017 with hyperglycemia and hyperosmolar nonketotic findings as well as evidence of BPH, diastolic and systolic heart failure, neuropathy and peripheral vascular disease. He had been disc harged on Lasix, gabapentin, insulin, Flomax, lisinopril, Norvasc and Coreg. He was readmitted a fe w days ago with acute renal failure and diarrhea, cocaine use with metabolic acidosis. CT of abdome n and pelvis showed a nonobstructing calculus in the upper kidney, but no hydronephrosis, findings c onsistent with possible enterocolitis. C. diff x2 was negative and the stool was negative as well. Two sets of blood cultures were negative. The patient was discharged on Coreg, ferrous sulfate, Le vemir insulin, Lopressor, Flomax and Norvasc. The patient is now readmitted with scrotal pain and s welling. Denies any headaches, no change in visual symptoms, sore throat, odynophagia or dysphagia. No dyspnea or chest pain. No abdominal pain or diarrhea. He did have some loose stools earlier. He is able to void without difficulty. He has moderate pain around the scrotal area and swelling. No appendicular structure symptoms at this time. No neurological symptoms. PAST MEDICAL HISTORY: Type 2 diabetes, renal insufficiency stage 3-4, hypertension, peripheral vasc ular disease, right heel osteomyelitis status post right BKA, cocaine use with renal insufficiency a nd urethral stricture. ALLERGIES: None. SOCIAL HISTORY: Current smoker. Works as a franchise manager and also worked in [employer] and had b een actively working until 2014 when he became disabled. CURRENT MEDICATIONS: List includes [place], Maalox, Tessalon, Dulcolax, PhosLo, Tums, Coreg, Catapres , Procrit, glucagon, Zosyn and vancomycin. PHYSICAL EXAMINATION: VITAL SIGNS: Temperature has been normal since admission, blood pressure 180/95, pulse 92, respirat ions 16 and O2 sat 96%. SKIN: Shows the areas of abrasion on the knee region and the presacral area stage 2 at the most. T he patient has a peripheral IV access. No Palm catheter. Scrotal tissue was swollen, but it is so ft. No evidence of erythema or any other wound or drainage. It is a very symmetrically distributed swelling. The patient has no lymphadenopathy. HEENT: Noncontributory. NECK: Supple. LUNGS: Symmetric clear breath sounds. HEART: S1 and S2, regular rate. No S3 or S4. ABDOMEN: Soft, not distended or tender. No ascites. No bladder distention. EXTREMITIES: No other skin lesions. Left foot with diminished dorsalis pedis pulses. He is able t o move extremities on command. NEUROLOGIC: Cognitive function appears to be intact. LABORATORY DATA: White cell count 14,000, down to 9. Hemoglobin 8 and now 7.4. Platelet count 318 and 265. Neutrophil percentage from 85% to 70%. PH 7.34, pCO2 of 33, pO2 of 75.6. Sodium 139 and creatinine 5.86. Liver profile within normal limits. Albumin 2.5. Urinalysis with 100 protein. Microbiology with 2 sets of negative blood cultures and urine culture negative with greater than 100 ,000 CFUs per mL of mixed skin jennifer, which was not further identified. IMAGING STUDIES: Include a testicular ultrasound with scrotal edema and mild skin thickening. ASSESSMENT: 1. Diabetes type 2. 2. Renal insufficiency. 3. Proteinuria with likely element of nephrotic syndrome. 4. Scrotal edema. DISCUSSION: At this point, I do not think that there is evidence to suggest inflammatory process in the scrotal tissue and this is more likely to result from edema. Thromboembolism is a consideratio n, but an abdomen and pelvis CT, which was done in June did not show obvious thrombi. This was a noncontrast study though which would limit the sensitivity of the test and a renal ultrasound from 07/23/2017 showed abnormal thickening of the urinary bladder. At this point, would recommend discon tinuation of antimicrobial therapy. Cannot give contrast to evaluate the vein drainage in the pelvi c area, may want to consider an ultrasound of the area to see if there is any evidence of venous occ lusion there.
[2017-08-06] MEDS: HYDROcodone/Acetaminophen 5/325 mg Tablet PO PRN (18:29)
[2017-08-06] MEDS: Insulin Detemir 100 UNITS/ML 15 UNITS in Pre-Filled Syringe 1 EACH SC SCH (20:54)
[2017-08-06] MEDS: NIFEdipine XL 60 MG TAB PO SCH (20:55)
[2017-08-06] MEDS: Famotidine 20 MG TAB PO SCH (20:55)
[2017-08-07] MEDS: Piperacillin/Tazobactam 2.25 GM in Sodium Chloride 0.9% 100 ML IVPB SCH ×2 (00:34→11:04)
[2017-08-07 05:13] LABS: Anion Gap 13 mmol/L (10-20); BUN (Urea Nitrogen) 45 mg/dL (8.4-25.7); Calc. Creatinine Clearance 14 mL/min (70-130); Calcium 7.8 mg/dL (7.8-10.44); Carbon Dioxide 22 mmol/L (22-29); Chloride 110 mmol/L (98-107); Estimated GFR-MDRD 12
[2017-08-07] MEDS ORDERED: NIFEdipine XL 60 MG TAB PO SCH (10:10)
[2017-08-07] MEDS ORDERED: NIFEdipine XL 90 MG TAB PO SCH (10:45)
--- NOTE | 2017-08-07 10:46 | PRG ---
Patient Name: CONNIE SALAZAR Date of service: 08/07/2017 Subjective: Patient was seen and examined at bedside and overnight events noted. Patient denies any shortness of breath or chest pain or palpitation. No history of nausea or vomiting or diarrhea or fever or chills or cramps. Objective: General: This is a well-built male in no apparent distress Vital signs: Temperature 98.1, pulse 94, respirations 18, blood pressure 159/82. HEENT: Atraumatic, normocephalic. Oral mucosa is moist. Neck: Supple. Cardiovascular: S1 S2 heard. Rate and rhythm regular. Respiratory: Clear to auscultation. Gastrointestinal: Abdomen is soft. Musculoskeletal: No tenderness. No edema. Dermatologic : No skin rash. Neurologic: Alert and awake and oriented X3. No focal neurologic deficits. Moving all the extremi ties. Psychiatric: Mood and affect normal. LABORATORY DATA: Potassium is 4.1, BUN 45, creatinine is 5.7. ASSESSMENT AND PLAN: 1. Acute kidney injury on chronic kidney disease stage 5. Seems like renal function is stable. No acute indication for dialysis. The patient refused to have any dialysis plans made at this visit. 2. Hypertension, stable. 3. Acidosis. 4. Anemia. 5. Edema, controlled. 6. Blood pressure seems to be better with Procardia. Will up titrate medication as needed. We will follow. No acute need for dialysis.
[2017-08-07] MEDS: Calcium Acetate 667 MG CAP PO SCH ×3 (10:50→17:40)
[2017-08-07] MEDS: Sodium Bicarbonate Tab 325 MG TAB PO SCH ×3 (10:50→20:45)
[2017-08-07] MEDS: Tamsulosin HCl 0.4 MG CAP PO SCH (10:51)
[2017-08-07] MEDS: Carvedilol 25 MG TAB PO SCH ×2 (10:51→20:46)
[2017-08-07] MEDS: Ferrous Sulfate 325 MG TAB PO SCH ×2 (10:51→17:40)
[2017-08-07] MEDS: hydrALAZINE 25 MG TAB PO SCH ×4 (10:51→20:45)
[2017-08-07] MEDS: Heparin 5,000 UNITS/ML VIAL SC SCH ×2 (10:55→20:46)
[2017-08-07] MEDS: NIFEdipine XL 60 MG TAB PO SCH (11:45)
[2017-08-07] MEDS ORDERED: Furosemide 40 MG/4 ML VIAL SLOW IVP SCH (11:45)
--- NOTE | 2017-08-07 11:59 | PDOC.PN ---
- Subjective Encounter Start Date: 08/07/17 Encounter Start Time: 09:20 this pt seen total 3 times today, in morning he was hypoglycemic, then he was c/ o dyspnea and then he wanted to leave AMA and wanted to go out, he not eat dinner last night - Objective MAR Reviewed: Yes Vital Signs & Weight: Vital Signs (12 hours) Pulse Resp BP BP Pulse Ox 08/07/17 11:45 79 145/77 H 08/07/17 10:51 79 145/77 H 08/07/17 07:48 85 18 159/82 H 96 Weight Admit Weight 149 lb 14.624 oz Weight 149 lb 14.624 oz I&O: 08/06/17 08/07/17 08/08/17 06:59 06:59 06:59 Intake Total 700 1190 Output Total 400 770 Balance 300 420 Result Diagrams: 08/04/17 04:17 08/07/17 04:04 Additional Labs: Accuchecks 08/07/17 08/07/17 08/07/17 10:55 07:53 07:47 POC Glucose 90 158 H Less than 35 L* 08/07/17 08/06/17 08/06/17 04:03 19:16 15:23 POC Glucose 80 199 H 262 H 08/06/17 11:30 POC Glucose 204 H Radiology Reviewed by me: Yes (chest xray) Phys Exam - Physical Examination Constitutional: NAD HEENT: PERRLA, moist MMs, sclera anicteric Neck: no JVD, supple Respiratory: wheezing present basilar rales Cardiovascular: RRR, no significant murmur, no rub Gastrointestinal: soft, non-tender, no distention, positive bowel sounds right BKA Neurological: non-focal Psychiatric: normal affect Skin: no rash, normal turgor Dx/Plan (1) Acute worsening of stage 4 chronic kidney disease Code(s): N28.9 - DISORDER OF KIDNEY AND URETER, UNSPECIFIED; N18.4 - CHRONIC KIDNEY DISEASE, STAGE 4 (SEVERE) Status: Acute (2) Cellulitis of scrotum Code(s): N49.2 - INFLAMMATORY DISORDERS OF SCROTUM Status: Acute (3) Hx of BKA Code(s): Z89.519 - ACQUIRED ABSENCE OF UNSPECIFIED LEG BELOW KNEE Status: Acute Qualifiers: Laterality: right Qualified Code(s): Z89.511 - Acquired absence of right leg below knee (4) Metabolic acidosis Code(s): E87.2 - ACIDOSIS Status: Acute (5) Anemia of renal disease Code(s): D63.1 - ANEMIA IN CHRONIC KIDNEY DISEASE Status: Chronic (6) BPH (benign prostatic hyperplasia) Code(s): N40.0 - BENIGN PROSTATIC HYPERPLASIA WITHOUT LOWER URINRY TRACT SYMP Status: Chronic (7) Chronic combined systolic and diastolic heart failure Code(s): I50.42 - CHRONIC COMBINED SYSTOLIC AND DIASTOLIC HRT FAIL Status: Chronic (8) Cocaine abuse Code(s): F14.10 - COCAINE ABUSE, UNCOMPLICATED Status: Chronic (9) Diabetic neuropathy Code(s): E11.40 - TYPE 2 DIABETES MELLITUS WITH DIABETIC NEUROPATHY, UNSP Status: Chronic Qualifiers: Diabetes mellitus type: type 2 (10) FTT (failure to thrive) in adult Status: Chronic (11) Hypertension Code(s): I10 - ESSENTIAL (PRIMARY) HYPERTENSION Status: Chronic Qualifiers: Hypertension type: essential hypertension Qualified Code(s): I10 - Essential (primary) hypertension (12) Moderate protein-calorie malnutrition Code(s): E44.0 - MODERATE PROTEIN-CALORIE MALNUTRITION Status: Chronic (13) Volume overload Code(s): E87.70 - FLUID OVERLOAD, UNSPECIFIED Status: Acute (14) Hypoglycemia due to type 2 diabetes mellitus Code(s): E11.649 - TYPE 2 DIABETES MELLITUS WITH HYPOGLYCEMIA WITHOUT COMA Status: Acute - Plan cont current plan of care * DC levemir * monitor for hypoglycemia * give lasix 60 mg * start duoneb * DC antibiotics as per Dr mcfarlane * will do testicular US with dopplar * pt does not want HD * his prognosis is poor * will consult palliative care * medication reviewed as below * symptomatic treatment. * discharge placement to snu/rehab Review of Systems - Review of Systems Constitutional: negative: Fever, Chills, Sweats, Weakness, Malaise, Other Eyes: negative: Pain, Vision Change, Conjunctivae Inflammation, Eyelid Inflammation, Redness, Other ENT: negative: Ear Pain, Ear Discharge, Nose Pain, Nose Discharge, Nose Congestion, Mouth Pain, Mouth Swelling, Throat Pain, Throat Swelling, Other Respiratory: Shortness of Breath. negative: Cough, Dry, Hemoptysis, SOB with Excertion, Pleuritic Pain, Sputum, Wheezing Cardiovascular: negative: Chest Pain, Palpitations, Orthopnea, Paroxysmal Noc. Dyspnea, Edema, Light Headedness, Other Gastrointestinal: negative: Nausea, Vomiting, Abdominal Pain, Diarrhea, Constipation, Melena, Hematochezia, Other Genitourinary: negative: Dysuria, Frequency, Incontinence, Hematuria, Retention , Other Musculoskeletal: negative: Neck Pain, Shoulder Pain, Arm Pain, Back Pain, Hand Pain, Leg Pain, Foot Pain, Other Skin: negative: Rash, Lesions, Panchito, Bruising, Other - Medications/Allergies Allergies/Adverse Reactions: Allergies Allergy/AdvReac Type Severity Reaction Status Date / Time No Known Drug Allergies Allergy Verified 05/09/17 07:17 Medications: Current Medications Acetaminophen (Tylenol) 650 mg PO Q4H PRN PRN Reason: Headache/Fever or Pain Hydrocodone Bitart/Acetaminophen ([place] 5/325) 1 tab PO Q4H PRN PRN Reason: Pain Last Admin: 08/06/17 18:29 Dose: 1 tab Al Hydroxide/Mg Hydroxide (Maalox) 30 ml PO Q6H PRN PRN Reason: Heartburn or Indigestion Albuterol/Ipratropium (Duoneb) 3 ml NEB NOW [facility] Stop: 08/07/17 12:45 Albuterol/Ipratropium (Duoneb) 3 ml NEB [id number] PRN PRN Reason: SOB &/or Wheezing Artificial Tears (Tears Naturale) 0 drop EA EYE PRN PRN PRN Reason: Dry Eyes Benzonatate (Tessalon) 100 mg PO Q4H PRN PRN Reason: Cough Bisacodyl (Dulcolax) 10 mg PO DAILYPRN PRN PRN Reason: Constipation Last Admin: 08/03/17 10:35 Dose: 10 mg Calcium Acetate (Phoslo) 667 mg PO TID-[facility] Last Admin: 08/07/17 10:50 Dose: 667 mg Calcium Carbonate (Tums) 1,000 mg PO Q4H PRN PRN Reason: Heartburn or Indigestion Carvedilol (Coreg) 25 mg PO BID [facility] Last Admin: 08/07/17 10:51 Dose: 25 mg Clonidine (Catapres) 0.1 mg PO Q4H PRN PRN Reason: Systolic BP > 160 Last Admin: 08/06/17 12:34 Dose: 0.1 mg Dextrose/Water (Dextrose 50%) 25 gm SLOW IVP PRN PRN PRN Reason: Hypoglycemia Last Admin: 08/07/17 07:49 Dose: 25 gm Epoetin Nikhil (Procrit) 10,000 units SC Q7D@1300 [facility] Last Admin: 08/04/17 13:38 Dose: 10,000 units Famotidine (Pepcid) 20 mg PO Q24HR [facility] Last Admin: 08/06/17 20:55 Dose: 20 mg Ferrous Sulfate (Feosol) 325 mg PO BID-[facility] Last Admin: 08/07/17 10:51 Dose: 325 mg Furosemide (Lasix) 60 mg SLOW IVP NOW [facility] Stop: 08/07/17 12:45 Glucagon (Glucagon) 1 mg IM PRN PRN PRN Reason: Hypoglycemia Guaifenesin (Robitussin Sf) 200 mg PO Q4H PRN PRN Reason: Cough Heparin Sodium (Porcine) (Heparin) 5,000 units SC BID [facility] Last Admin: 08/07/17 10:55 Dose: 5,000 units Hydralazine HCl (Apresoline) 10 mg SLOW IVP Q4H PRN PRN Reason: Systolic BP > 170 Last Admin: 08/02/17 23:06 Dose: 10 mg Hydralazine HCl (Apresoline) 50 mg PO TID [facility] Last Admin: 08/07/17 10:51 Dose: 50 mg Dextrose/Water (D5w) 1,000 mls @ 0 mls/hr IV .Q0M PRN; As Directed PRN Reason: Hypoglycemia Insulin Human Regular (Humulin R) 0 units SC .MODERATE SLIDING SC PRN; Protocol PRN Reason: MODERATE SLIDING SCALE Last Admin: 08/06/17 15:30 Dose: 6 unit Insulin Human Regular (Humulin R) 0 units SC .BEDTIME SLIDING SC PRN; Protocol PRN Reason: BEDTIME SLIDING SCALE Last Admin: 08/03/17 01:00 Dose: 3 unit Loperamide HCl (Imodium) 2 mg PO PRN PRN PRN Reason: Diarrhea/Loose Stools Loratadine (Claritin) 10 mg PO DAILYPRN PRN PRN Reason: Sinus Symptoms Lorazepam (Ativan) 1 mg PO Q4H PRN PRN Reason: Anxiety/Agitation Magnesium Hydroxide (Milk Of Magnesium) 30 ml PO DAILYPRN PRN PRN Reason: Constipation Mineral Oil/White Petrolatum (Eucerin Cream) 0 gm TOP BIDPRN PRN PRN Reason: Dry Skin Nifedipine (Procardia Xl) 90 mg PO BID [facility] Nitroglycerin (Nitrostat) 0.4 mg SL Q5MIN PRN PRN Reason: Chest Pain Ondansetron HCl (Zofran Odt) 4 mg PO Q6H PRN PRN Reason: Nausea/Vomiting Ondansetron HCl (Zofran) 4 mg IVP Q6H PRN PRN Reason: Nausea/Vomiting Phenol (Chloraseptic [place] 180 Ml Bot) 0 ml PO PRN PRN PRN Reason: Sore Throat Senna (Senokot) 2 tab PO HSPRN PRN PRN Reason: Constipation Sodium Bicarbonate (Bicarbonate, Sodium) 650 mg PO TID [facility] Last Admin: 08/07/17 10:50 Dose: 650 mg Sodium Chloride ([place] Nasal [place] 0.65%) 0 ml EA NARE QIDPRN PRN PRN Reason: Nasal Congestion Sodium Chloride (Flush - Normal Saline) 10 ml IVF Q12HR [facility] Sodium Chloride (Flush - Normal Saline) 10 ml IVF PRN PRN PRN Reason: Saline Flush Tamsulosin HCl (Flomax) 0.4 mg PO DAILY [facility] Last Admin: 08/07/17 10:51 Dose: 0.4 mg Temazepam (Restoril) 15 mg PO HSPRN PRN PRN Reason: Insomnia Tramadol HCl (Ultram) 50 mg PO Q4H PRN PRN Reason: Moderate Pain (4-6) Last Admin: 08/04/17 16:56 Dose: 50 mg
--- NOTE | 2017-08-07 12:14 | ULT ---
ULTRASOUND TESTICULAR WITH DOPPLER: Date: 08/07/17 HISTORY: Scrotal edema. COMPARISON: Ultrasound testicular with Doppler dated 08/01/17. FINDINGS: There is striated appearance of both testicles, which is similar to the prior examination, but sever e scrotal swelling. Adequate vascular flow is present in both testicles. Right testicle measures 3.6 x 2.5 x 2.6 cm. Left testicle measures 3.4 x 2.2 x 2.2 cm. Both epididym ides are normal. IMPRESSION: 1. Adequate vascular flow to both testicles. 2. Moderate bilateral hydroceles. 3. Severe scrotal swelling. 4. Striated appearance of both testicles, which was seen on the prior examination. This is nonspeci fic and may represent infection in the correct clinical scenario. Fibrosis is also within the differ ential. Malignancy is felt less likely. Follow-up could be obtained. POS: [facility]
--- NOTE | 2017-08-07 13:21 | RAD ---
UPRIGHT PORTABLE CHEST ONE VIEW: History: 57-year-old male with shortness of breath. Comparison: 07-23-17 FINDINGS: Inspiration is somewhat less than optimal. Minimal cardiomegaly with bilateral vascular congestion a nd bilateral pleural effusions developing since the prior study. IMPRESSION: Minimal cardiomegaly and pleural effusions developing since 07-23-17. Mild vascular congestion. Cont inued short-term follow up for clearing or stability. POS: [facility]
[2017-08-07] MEDS: NIFEdipine XL 90 MG TAB PO SCH (20:45)
[2017-08-07] MEDS: Famotidine 20 MG TAB PO SCH (20:45)
[2017-08-08 05:39] LABS: Anion Gap 13 mmol/L (10-20); BUN (Urea Nitrogen) 46 mg/dL (8.4-25.7); Calc. Creatinine Clearance 13 mL/min (70-130); Calcium 7.9 mg/dL (7.8-10.44); Carbon Dioxide 25 mmol/L (22-29); Chloride 109 mmol/L (98-107); Estimated GFR-MDRD 12
--- NOTE | 2017-08-08 06:33 | PDOC.PN ---
- Subjective Encounter Start Date: 08/08/17 Encounter Start Time: 06:32 Patient seen and examined. No new complaints. No overnight events - Objective Vital Signs & Weight: Vital Signs (12 hours) Temp Pulse Resp BP BP Pulse Ox 08/07/17 20:45 91 149/80 H 08/07/17 20:00 98.4 F 91 20 92 L 08/07/17 19:39 98.4 F 91 20 149/80 H 92 L Weight Admit Weight 149 lb 14.624 oz Weight 149 lb 14.624 oz I&O: 08/06/17 08/07/17 08/08/17 06:59 06:59 06:59 Intake Total 700 1190 1250 Output Total 400 770 600 Balance 300 420 650 Result Diagrams: 08/04/17 04:17 08/08/17 04:22 Additional Labs: Accuchecks 08/08/17 08/07/17 08/07/17 04:22 19:39 16:38 POC Glucose 248 H 230 H 195 H 08/07/17 08/07/17 08/07/17 14:57 12:20 10:55 POC Glucose 148 H 263 H 90 08/07/17 08/07/17 07:53 07:47 POC Glucose 158 H Less than 35 L* Phys Exam - Physical Examination Constitutional: NAD HEENT: PERRLA, moist MMs, sclera anicteric Neck: no JVD, supple Respiratory: wheezing present few basal rales, reduced air entry at base Cardiovascular: RRR, no significant murmur, no rub Gastrointestinal: soft, non-tender, no distention, positive bowel sounds right BKA Neurological: non-focal, normal sensation Lymphatic: no nodes Psychiatric: normal affect, A&O x 3 Skin: no rash, normal turgor Dx/Plan (1) Acute worsening of stage 4 chronic kidney disease Code(s): N28.9 - DISORDER OF KIDNEY AND URETER, UNSPECIFIED; N18.4 - CHRONIC KIDNEY DISEASE, STAGE 4 (SEVERE) Status: Acute (2) Cellulitis of scrotum Code(s): N49.2 - INFLAMMATORY DISORDERS OF SCROTUM Status: Acute (3) Hx of BKA Code(s): Z89.519 - ACQUIRED ABSENCE OF UNSPECIFIED LEG BELOW KNEE Status: Acute Qualifiers: Laterality: right Qualified Code(s): Z89.511 - Acquired absence of right leg below knee (4) Metabolic acidosis Code(s): E87.2 - ACIDOSIS Status: Acute (5) Anemia of renal disease Code(s): D63.1 - ANEMIA IN CHRONIC KIDNEY DISEASE Status: Chronic (6) BPH (benign prostatic hyperplasia) Code(s): N40.0 - BENIGN PROSTATIC HYPERPLASIA WITHOUT LOWER URINRY TRACT SYMP Status: Chronic (7) Chronic combined systolic and diastolic heart failure Code(s): I50.42 - CHRONIC COMBINED SYSTOLIC AND DIASTOLIC HRT FAIL Status: Chronic (8) Cocaine abuse Code(s): F14.10 - COCAINE ABUSE, UNCOMPLICATED Status: Chronic (9) Diabetic neuropathy Code(s): E11.40 - TYPE 2 DIABETES MELLITUS WITH DIABETIC NEUROPATHY, UNSP Status: Chronic Qualifiers: Diabetes mellitus type: type 2 (10) FTT (failure to thrive) in adult Status: Chronic (11) Hypertension Code(s): I10 - ESSENTIAL (PRIMARY) HYPERTENSION Status: Chronic Qualifiers: Hypertension type: essential hypertension Qualified Code(s): I10 - Essential (primary) hypertension (12) Moderate protein-calorie malnutrition Code(s): E44.0 - MODERATE PROTEIN-CALORIE MALNUTRITION Status: Chronic (13) Volume overload Code(s): E87.70 - FLUID OVERLOAD, UNSPECIFIED Status: Acute (14) Hypoglycemia due to type 2 diabetes mellitus Code(s): E11.649 - TYPE 2 DIABETES MELLITUS WITH HYPOGLYCEMIA WITHOUT COMA Status: Acute - Plan cont current plan of care, PT/OT, perinatal social worker, respiratory therapy * pt is approaching to ESRD, without dialysis he is always risk for bounce back * pt is reluctant for HD, if he continue that then his prognosis is very poor * we have consulted palliative care * will add po levaquin 250 mg daily for suspected scrotal cellulitis, most likely hydrocele * medication reviewed as below * symptomatic treatment * pt is not ready for discharge. * will add levemir 10 unit sc daily * watch for hypoglycemia and fluid overload Review of Systems - Review of Systems Constitutional: Weakness. negative: Fever, Chills, Sweats, Malaise, Other ENT: negative: Ear Pain, Ear Discharge, Nose Pain, Nose Discharge, Nose Congestion, Mouth Pain, Mouth Swelling, Throat Pain, Throat Swelling, Other Respiratory: Cough, Shortness of Breath. negative: Dry, Hemoptysis, SOB with Excertion, Pleuritic Pain, Sputum, Wheezing Cardiovascular: negative: Chest Pain, Palpitations, Orthopnea, Paroxysmal Noc. Dyspnea, Edema, Light Headedness, Other Gastrointestinal: negative: Nausea, Vomiting, Abdominal Pain, Diarrhea, Constipation, Melena, Hematochezia, Other Genitourinary: negative: Dysuria, Frequency, Incontinence, Hematuria, Retention , Other Musculoskeletal: negative: Neck Pain, Shoulder Pain, Arm Pain, Back Pain, Hand Pain, Leg Pain, Foot Pain, Other - Medications/Allergies Allergies/Adverse Reactions: Allergies Allergy/AdvReac Type Severity Reaction Status Date / Time No Known Drug Allergies Allergy Verified 05/09/17 07:17 Medications: Current Medications Acetaminophen (Tylenol) 650 mg PO Q4H PRN PRN Reason: Headache/Fever or Pain Hydrocodone Bitart/Acetaminophen ([place] 5/325) 1 tab PO Q4H PRN PRN Reason: Pain Last Admin: 08/06/17 18:29 Dose: 1 tab Al Hydroxide/Mg Hydroxide (Maalox) 30 ml PO Q6H PRN PRN Reason: Heartburn or Indigestion Albuterol/Ipratropium (Duoneb) 3 ml NEB [id number] PRN PRN Reason: SOB &/or Wheezing Artificial Tears (Tears Naturale) 0 drop EA EYE PRN PRN PRN Reason: Dry Eyes Benzonatate (Tessalon) 100 mg PO Q4H PRN PRN Reason: Cough Bisacodyl (Dulcolax) 10 mg PO DAILYPRN PRN PRN Reason: Constipation Last Admin: 08/03/17 10:35 Dose: 10 mg Calcium Acetate (Phoslo) 667 mg PO TID-[facility] Last Admin: 08/07/17 17:40 Dose: 667 mg Calcium Carbonate (Tums) 1,000 mg PO Q4H PRN PRN Reason: Heartburn or Indigestion Carvedilol (Coreg) 25 mg PO BID [facility] Last Admin: 08/07/17 20:46 Dose: 25 mg Clonidine (Catapres) 0.1 mg PO Q4H PRN PRN Reason: Systolic BP > 160 Last Admin: 08/06/17 12:34 Dose: 0.1 mg Dextrose/Water (Dextrose 50%) 25 gm SLOW IVP PRN PRN PRN Reason: Hypoglycemia Last Admin: 08/07/17 07:49 Dose: 25 gm Epoetin Nikhil (Procrit) 10,000 units SC Q7D@1300 [facility] Last Admin: 08/04/17 13:38 Dose: 10,000 units Famotidine (Pepcid) 20 mg PO Q24HR [facility] Last Admin: 08/07/17 20:45 Dose: 20 mg Ferrous Sulfate (Feosol) 325 mg PO BID-[facility] Last Admin: 08/07/17 17:40 Dose: 325 mg Glucagon (Glucagon) 1 mg IM PRN PRN PRN Reason: Hypoglycemia Guaifenesin (Robitussin Sf) 200 mg PO Q4H PRN PRN Reason: Cough Heparin Sodium (Porcine) (Heparin) 5,000 units SC BID [facility] Last Admin: 08/07/17 20:46 Dose: 5,000 units Hydralazine HCl (Apresoline) 10 mg SLOW IVP Q4H PRN PRN Reason: Systolic BP > 170 Last Admin: 08/02/17 23:06 Dose: 10 mg Hydralazine HCl (Apresoline) 50 mg PO TID [facility] Last Admin: 08/07/17 20:45 Dose: 50 mg Dextrose/Water (D5w) 1,000 mls @ 0 mls/hr IV .Q0M PRN; As Directed PRN Reason: Hypoglycemia Insulin Human Regular (Humulin R) 0 units SC .MODERATE SLIDING SC PRN; Protocol PRN Reason: MODERATE SLIDING SCALE Last Admin: 08/06/17 15:30 Dose: 6 unit Insulin Human Regular (Humulin R) 0 units SC .BEDTIME SLIDING SC PRN; Protocol PRN Reason: BEDTIME SLIDING SCALE Last Admin: 08/03/17 01:00 Dose: 3 unit Loperamide HCl (Imodium) 2 mg PO PRN PRN PRN Reason: Diarrhea/Loose Stools Loratadine (Claritin) 10 mg PO DAILYPRN PRN PRN Reason: Sinus Symptoms Lorazepam (Ativan) 1 mg PO Q4H PRN PRN Reason: Anxiety/Agitation Magnesium Hydroxide (Milk Of Magnesium) 30 ml PO DAILYPRN PRN PRN Reason: Constipation Mineral Oil/White Petrolatum (Eucerin Cream) 0 gm TOP BIDPRN PRN PRN Reason: Dry Skin Nifedipine (Procardia Xl) 90 mg PO BID [facility] Last Admin: 08/07/17 20:45 Dose: 90 mg Nitroglycerin (Nitrostat) 0.4 mg SL Q5MIN PRN PRN Reason: Chest Pain Ondansetron HCl (Zofran Odt) 4 mg PO Q6H PRN PRN Reason: Nausea/Vomiting Ondansetron HCl (Zofran) 4 mg IVP Q6H PRN PRN Reason: Nausea/Vomiting Phenol (Chloraseptic [place] 180 Ml Bot) 0 ml PO PRN PRN PRN Reason: Sore Throat Senna (Senokot) 2 tab PO HSPRN PRN PRN Reason: Constipation Sodium Bicarbonate (Bicarbonate, Sodium) 650 mg PO TID [facility] Last Admin: 08/07/17 20:45 Dose: 650 mg Sodium Chloride ([place] Nasal [place] 0.65%) 0 ml EA NARE QIDPRN PRN PRN Reason: Nasal Congestion Sodium Chloride (Flush - Normal Saline) 10 ml IVF Q12HR [facility] Last Admin: 08/07/17 20:46 Dose: 10 ml Sodium Chloride (Flush - Normal Saline) 10 ml IVF PRN PRN PRN Reason: Saline Flush Tamsulosin HCl (Flomax) 0.4 mg PO DAILY [facility] Last Admin: 08/07/17 10:51 Dose: 0.4 mg Temazepam (Restoril) 15 mg PO HSPRN PRN PRN Reason: Insomnia Tramadol HCl (Ultram) 50 mg PO Q4H PRN PRN Reason: Moderate Pain (4-6) Last Admin: 08/04/17 16:56 Dose: 50 mg
[2017-08-08] MEDS: Carvedilol 25 MG TAB PO SCH ×2 (07:49→20:39)
[2017-08-08] MEDS: Calcium Acetate 667 MG CAP PO SCH ×3 (07:49→16:11)
[2017-08-08] MEDS: Sodium Bicarbonate Tab 325 MG TAB PO SCH ×3 (07:49→20:39)
[2017-08-08] MEDS: NIFEdipine XL 90 MG TAB PO SCH ×2 (07:49→20:42)
[2017-08-08] MEDS: Tamsulosin HCl 0.4 MG CAP PO SCH (07:49)
[2017-08-08] MEDS: Ferrous Sulfate 325 MG TAB PO SCH ×2 (07:50→16:11)
[2017-08-08] MEDS: Heparin 5,000 UNITS/ML VIAL SC SCH ×2 (07:50→20:44)
[2017-08-08] MEDS: hydrALAZINE 25 MG TAB PO SCH ×3 (07:50→20:39)
[2017-08-08] MEDS: Famotidine 20 MG TAB PO SCH (20:42)
[2017-08-08] MEDS: Insulin Detemir 100 UNITS/ML 10 UNITS in Pre-Filled Syringe 1 EACH SC SCH (20:44)
--- NOTE | 2017-08-08 21:30 | PRG ---
DATE OF SERVICE: 08/08/2017 SUBJECTIVE: The patient was seen and examined at bedside and overnight events noted. The patient de nies any shortness of breath or chest pain or palpitation. No history of nausea, vomiting, diarrhea, fever, chills, or cramps. OBJECTIVE: GENERAL: This is a well-built male in no apparent distress. VITAL SIGNS: Temperature 96, pulse 72, respiratory rate 20, blood pressure 170/92. HEENT: Atraumatic, normocephalic. Oral mucosa is moist. Neck: Supple. Cardiovascular: S1, S2 heard. Rate and rhythm regular. Respiratory: Clear to auscultation. Gastrointestinal: Abdomen is soft. Musculoskeletal: No tenderness, no edema. Dermatologic: No skin rash. Neurologic: Alert, awake, and oriented x3. No focal neurologic deficits. Moving all the extremitie s. Psychiatric: Mood and affect normal. LABORATORY DATA: Potassium is 4.3, BUN is 46, creatinine 6.1. ASSESSMENT AND PLAN: 1. Acute kidney injury on chronic kidney disease. Renal function seems to be stable. No acute julio c cation for dialysis. The patient is refusing dialysis at this point, but we will consider in the fut ure. 2. Hypertension. 3. Status post anemia. 4. Edema. 5. We will follow.
[2017-08-09 04:39] LABS: Anion Gap 12 mmol/L (10-20); BUN (Urea Nitrogen) 47 mg/dL (8.4-25.7); Calc. Creatinine Clearance 13 mL/min (70-130); Calcium 7.8 mg/dL (7.8-10.44); Carbon Dioxide 24 mmol/L (22-29); Chloride 106 mmol/L (98-107); Estimated GFR-MDRD 12
[2017-08-09] MEDS: Insulin Regular 300 UNITS/3 ML VIAL SC PRN ×2 (06:00→12:15)
--- NOTE | 2017-08-09 07:48 | PRG ---
DATE OF SERVICE: 08/08/2017 SUBJECTIVE: Mr. Dumont has noticed some decrease in the swelling of the scrotal area. No headaches, n o visual symptoms, no shortness of breath or chest pain, no abdominal pain. OBJECTIVE: VITAL SIGNS: His temperature is 98.7, blood pressure 180/99. GENERAL: Awake, alert, and oriented. HEENT: A little bit of periorbital edema. LUNGS: With symmetric air entry, faint basilar crackles. HEART: S1, S2, regular rate. ABDOMEN: Soft, not distended or tender. GENITOURINARY: Both penile and scrotal edema noted, diffuse. The skin is soft. There is no evidenc e of inflammatory changes. EXTREMITIES: Moves all extremities equally. LABORATORY DATA: White cell count 9.0 from 2 days ago and creatinine 6.06. All the cultures are neg ative. ASSESSMENT: 1. Type 2, diabetes. 2. Renal insufficiency with end-stage renal disease. 3. Proteinuria. 4. Scrotal edema, probably associated with the volume overload and some element of nephrotic syndrom e. Again, no evidence of inflammatory process. We will need to continue management of the swelling by elevation and decrease in volume overload.
[2017-08-09] MEDS ORDERED: CEFAZOLIN/Water 2 GM/20 ML SYRINGE SLOW IVP SCH (08:45)
[2017-08-09] MEDS: Tamsulosin HCl 0.4 MG CAP PO SCH (08:46)
[2017-08-09] MEDS: Sodium Bicarbonate Tab 325 MG TAB PO SCH ×3 (08:46→20:14)
[2017-08-09] MEDS: hydrALAZINE 25 MG TAB PO SCH ×3 (08:46→20:13)
[2017-08-09] MEDS: Carvedilol 25 MG TAB PO SCH ×2 (08:46→20:12)
[2017-08-09] MEDS: Heparin 5,000 UNITS/ML VIAL SC SCH ×2 (08:47→20:32)
[2017-08-09] MEDS: Calcium Acetate 667 MG CAP PO SCH ×3 (08:47→18:04)
[2017-08-09] MEDS: Ferrous Sulfate 325 MG TAB PO SCH ×2 (08:47→18:13)
[2017-08-09] MEDS: NIFEdipine XL 90 MG TAB PO SCH ×2 (08:53→20:14)
--- NOTE | 2017-08-09 10:04 | PDOC.PN ---
- Subjective Encounter Start Date: 08/09/17 Encounter Start Time: 10:03 Mr. Dumont was seen today in follow-up of scrotal edema, and renal failure. He does not have any complaints this morning. - Objective MAR Reviewed: Yes Vital Signs & Weight: Vital Signs (12 hours) Temp Pulse Resp BP BP BP Pulse Ox 08/09/17 08:53 82 131/74 08/09/17 08:46 82 131/74 08/09/17 08:00 98.4 F 82 18 131/74 90 L 08/09/17 00:24 94 171/94 H Weight Admit Weight 149 lb 14.624 oz Weight 149 lb 14.624 oz I&O: 08/08/17 08/09/17 08/10/17 06:59 06:59 06:59 Intake Total 1250 1000 240 Output Total 600 400 Balance 650 600 240 Result Diagrams: 08/04/17 04:17 08/09/17 03:37 Additional Labs: Accuchecks 08/09/17 08/08/17 08/08/17 06:00 19:44 16:36 POC Glucose 388 H 267 H 227 H 08/08/17 08/08/17 16:10 11:21 POC Glucose 235 H 265 H Phys Exam - Physical Examination HEENT: PERRLA Respiratory: no wheezing, no rales, no rhonchi, clear to auscultation bilateral Cardiovascular: RRR, no significant murmur, no rub Gastrointestinal: soft, non-tender, positive bowel sounds Musculoskeletal: edema present + mild edema of the left leg, with some mild erythema Dx/Plan (1) Cellulitis of scrotum Code(s): N49.2 - INFLAMMATORY DISORDERS OF SCROTUM Status: Acute (2) Acute worsening of stage 4 chronic kidney disease Code(s): N28.9 - DISORDER OF KIDNEY AND URETER, UNSPECIFIED; N18.4 - CHRONIC KIDNEY DISEASE, STAGE 4 (SEVERE) Status: Acute (3) Diabetes mellitus type 2, uncontrolled Code(s): E11.65 - TYPE 2 DIABETES MELLITUS WITH HYPERGLYCEMIA Status: Acute (4) Chronic combined systolic and diastolic heart failure Code(s): I50.42 - CHRONIC COMBINED SYSTOLIC AND DIASTOLIC HRT FAIL Status: Chronic (5) Cocaine abuse Code(s): F14.10 - COCAINE ABUSE, UNCOMPLICATED Status: Chronic (6) Hypertension Code(s): I10 - ESSENTIAL (PRIMARY) HYPERTENSION Status: Chronic Qualifiers: Hypertension type: essential hypertension Qualified Code(s): I10 - Essential (primary) hypertension - Plan * Scrotal edema- ID input appreciated. It is less likely due to Cellulitis, and more due to edema, and volume overload * Continue to keep elevated * Acute on chronic kidney disease- patient has reached ESRD- he has had venous mapping studies for the placement of an AV fistula. He says he is now ready to begin dialysis * DM- not controlled- Levemir has been added yesterday- will monitor the effect , and will titrate insulin has needed * HTN- blood pressure is not optimally controlled- will see the effects of the current regimen over the course of a few days and titrate as needed * Chronic systolic heart failure- compensated
--- NOTE | 2017-08-09 12:10 | ULT ---
BILATERAL UPPER EXTREMITY VASCULAR MAPPING FOR DIALYSIS ACCESS: Date: 08-09-17 Comparison: None. History: Endstage renal disease, assess vasculature for dialysis access. Technique: Multiplanar sonographic imaging of the vascular structures of bilateral upper extremity ob tained with color flow and spectral analysis. FINDINGS: Bilateral internal jugular veins, subclavian veins, and axillary veins are patent. The cephalic vein and basilic vein demonstrates patency bilaterally as well. RIGHT UPPER EXTREMITY BRACHIAL ARTERY: 5.0 mm RADIAL ARTERY: 3.0 mm ULNAR ARTERY: 1.9 mm CEPHALIC VEIN Proximal Arm: 3.9 mm Mid Arm: 3.2 mm Distal Arm: 3.0 mm Antecubital Fossa: 2.1 mm Proximal Forearm: 1.7 mm Mid Forearm: 1.6 mm Distal Forearm: 1.7 mm BASILIC VEIN Proximal Arm: 3.5 mm Mid Arm: 3.0 mm Distal Arm: 3.2 mm Antecubital Fossa: 2.0 mm Proximal Forearm: 1.9 mm Mid Forearm: 0.8 mm Distal Forearm: 1.1 mm LEFT UPPER EXTREMITY BRACHIAL ARTERY: 6.2 mm RADIAL ARTERY: 2.8 mm ULNAR ARTERY: 1.6 mm CEPHALIC VEIN Proximal Arm: 4.1 mm Mid Arm: 4.9 mm Distal Arm: 2.4 mm Antecubital Fossa: 4.0 mm Proximal Forearm: 1.6 mm Mid Forearm: 1.4 mm Distal Forearm: 1.4 mm BASILIC VEIN Proximal Arm: 3.7 mm Mid Arm: 3.6 mm Distal Arm: 3.8 mm Antecubital Fossa: 3.6 mm Proximal Forearm: 2.4 mm Mid Forearm: 2.2 mm Distal Forearm: 1.0 mm IMPRESSION: Vascular mapping ultrasound as detailed above. POS: [facility]
[2017-08-09] MEDS: Famotidine 20 MG TAB PO SCH (20:13)
--- NOTE | 2017-08-09 20:16 | HP ---
HISTORY OF PRESENT ILLNESS: Homer Dumont is a 57-year-old black male, well known to me from when I p erformed a right qyjqu-oaq-odsj amputation on 11/13/2014. He required a guillotine amputation at desmond t time and subsequent closure a few days later. The patient has type 2 diabetes and suffers end-stag e renal disease, and has been seen by Dr. De Los Santos and I have asked to see him regarding dialysis acce ss. He has good cephalic and basilic veins in both arms. He is right handed. Plan is to left arm p rimary fistula and placement of hemodialysis catheter tomorrow. He understands the risks and benefit s and consents. ALLERGIES: None. TOBACCO: Less than a third pack per day. ALCOHOL: None. MEDICATIONS: Outpatient insulin at bedtime 15 units, ferrous sulfate 325 b.i.d. 5 units insulin subc u t.i.d. with meals, Flomax 0.4 mg a day, nifedipine 60 mg a day, doxycycline 100 mg q.12 hours, ceph alexin 500 mg q.12 hours, Coreg 25 mg b.i.d., and PhosLo 667 mg p.o. t.i.d. PAST SURGICAL HISTORY: Right ztdyg-xap-hbsq amputation. PAST MEDICAL HISTORY: Diabetes mellitus, insulin dependent type 2, hypertension, right qxuui-zee-puu e amputation status, he has a prosthesis, but is in the process of being repaired. REVIEW OF SYSTEMS: Ten-point noncontributory otherwise. PHYSICAL EXAMINATION: VITAL SIGNS: 5 feet 949 pounds, 98.4, 82, 131/74. LUNGS: Clear to auscultation. CARDIAC: Regular rate and rhythm without murmur or gallop. ABDOMEN: Soft, nontender. EXTREMITIES: Palpable femoral pulses bilateral, palpable radial pulses bilaterally visibly distended vein left antecubital and right antecubital, right mcxfv-iab-wghv amputation status, well healed wou nd. LABORATORY DATA: Hemoglobin 7, white count 9, BUN 47, creatinine 6. Sodium 138, potassium 4.1, GFR 12. ASSESSMENT AND PLAN: 1. End-stage renal disease. We will plan placement of hemodialysis catheter and left arm fistula, r egional anesthesia sedation local. He understands the risks and benefits and consents. 2. Edema scrotal and extremity and need for dialysis. 3. Right ddngg-wiu-xdvs amputation status. 4. Type 2 diabetes mellitus. 5. Hypertension.
[2017-08-09] MEDS: Insulin Detemir 100 UNITS/ML 10 UNITS in Pre-Filled Syringe 1 EACH SC SCH (20:35)
[2017-08-10] MEDS: hydrALAZINE 20 MG/ML VIAL SLOW IVP PRN (00:48)
--- NOTE | 2017-08-10 03:09 | PRG ---
DATE OF SERVICE: 08/09/2017 SUBJECTIVE: The patient was seen and examined at bedside and overnight events noted. The patient denies any shortness of breath or chest pain or palpitation. No history of nausea or vom iting or diarrhea or fever or chills or cramps. OBJECTIVE: GENERAL: This is a well-built male, in no apparent distress. VITAL SIGNS: Temperature 97.9, pulse 89, respiratory rate 18, blood pressure 194/100. HEENT: Atraumatic, normocephalic, oral mucosa is moist. NECK: Supple. CARDIOVASCULAR: S1, S2 heard, rate and rhythm regular. RESPIRATORY: Clear to auscultation. GASTROINTESTINAL: Abdomen is soft. MUSCULOSKELETAL: No tenderness. No edema. DERMATOLOGIC: No skin rash. NEUROLOGIC: Alert and awake and oriented x3, no focal neurologic deficits, moving all the extremitie s. PSYCHIATRIC: Mood and affect normal. LABORATORY DATA: Potassium is 4.1, BUN is 47, creatinine 6.0. ASSESSMENT AND PLAN: 1. Acute kidney injury on chronic kidney disease, end-stage renal function with no significant impro vement. The patient remains hyperglycemic and hypertensive. 2. Hypertension. 3. Status post anemia. 4. Scrotal edema. 5. Edema is not getting better. The patient is agreeable to have dialysis now and Surgery consulted for placement of dialysis catheter.
[2017-08-10 05:25] LABS: Anion Gap 11 mmol/L (10-20); BUN (Urea Nitrogen) 50 mg/dL (8.4-25.7); Calc. Creatinine Clearance 13 mL/min (70-130); Calcium 7.9 mg/dL (7.8-10.44); Carbon Dioxide 25 mmol/L (22-29); Chloride 106 mmol/L (98-107); Estimated GFR-MDRD 11
[2017-08-10] MEDS: Carvedilol 25 MG TAB PO SCH ×2 (06:04→22:22)
[2017-08-10] MEDS: NIFEdipine XL 90 MG TAB PO SCH ×2 (08:12→22:23)
[2017-08-10] MEDS: Tamsulosin HCl 0.4 MG CAP PO SCH (08:13)
[2017-08-10] MEDS: Calcium Acetate 667 MG CAP PO SCH ×3 (08:13→16:28)
[2017-08-10] MEDS: hydrALAZINE 25 MG TAB PO SCH ×3 (08:13→22:22)
[2017-08-10] MEDS: Sodium Bicarbonate Tab 325 MG TAB PO SCH ×3 (08:13→22:23)
[2017-08-10] MEDS: Ferrous Sulfate 325 MG TAB PO SCH ×2 (08:13→16:28)
[2017-08-10] MEDS ORDERED: Tuberculin PPD 0.1 ML VIAL I-DERMAL SCH (09:45)
--- NOTE | 2017-08-10 10:01 | PRG ---
DATE OF SERVICE: 08/10/2017 SUBJECTIVE: Patient was seen and examined at bedside and overnight events noted. Patient denies any shortness of breath or chest pain or palpitation. No history of nausea or vomiting or diarrhea or f ever or chills or cramps. OBJECTIVE: GENERAL: This is a well-built male, in no apparent distress. VITAL SIGNS: Temperature 98.5, pulse 84, respiratory 18, blood pressure 121/66. HEENT: Atraumatic, normocephalic. Oral mucosa is moist. NECK: Supple. CARDIOVASCULAR: S1, S2 heard. Rate and rhythm regular. RESPIRATORY: Clear to auscultation. GASTROINTESTINAL: Abdomen is soft. MUSCULOSKELETAL: No tenderness, no edema. DERMATOLOGIC: No skin rash. NEUROLOGIC: Alert and awake and oriented x3. No focal neurologic deficits. Moving all the extremit ies. PSYCHIATRIC: Mood and affect normal. LABORATORY DATA: Potassium is 4.0, BUN is 50, creatinine 6.4. ASSESSMENT AND PLAN: 1. Acute kidney injury on chronic kidney disease, progressing to end-stage renal disease. Plan is t o start on dialysis due to worsening and worsening edema. 2. Hypertension. 3. Scrotal edema. 4. Anemia. 5. Plan is to start on dialysis as tolerated. I appreciate help from Surgery.
[2017-08-10] MEDS ORDERED: Heparin 1,000 UNITS/ML VIAL ONE (11:11)
[2017-08-10] MEDS ORDERED: Fentanyl 100 MCG/2 ML VIAL ONE ×2 (11:59→12:04)
[2017-08-10] MEDS ORDERED: Midazolam HCl 2 mg/2 ml Vial ONE (11:59)
[2017-08-10] MEDS ORDERED: Propofol 500 MG/50 ML VIAL ONE (12:04)
[2017-08-10] MEDS ORDERED: CEFAZOLIN/Water 2 GM/20 ML SYRINGE ONE (12:04)
[2017-08-10] MEDS ORDERED: Protamine Sulfate 50 MG/5 ML VIAL ONE (12:12)
[2017-08-10] MEDS ORDERED: Bupivacaine/Epinephrine 0.25% 30 ML VIAL ONE (12:12)
[2017-08-10] MEDS ORDERED: Heparin 5,000 UNITS/ML VIAL ONE (12:12)
[2017-08-10] MEDS ORDERED: Heparin 10,000 UNITS/1 ML VIAL ONE (12:16)
[2017-08-10] MEDS ORDERED: Sodium Chloride 0.9% 20 ML ONE (12:16)
[2017-08-10] MEDS ORDERED: Propofol 200 MG/20 ML VIAL ONE (13:11)
[2017-08-10] MEDS ORDERED: Ondansetron HCl/PF 4 MG/2 ML Vial IVP PRN (14:44)
[2017-08-10] MEDS ORDERED: Promethazine HCl 25 MG/ML VIAL SLOW IVP PRN (14:44)
[2017-08-10] MEDS ORDERED: Promethazine HCl 25 MG/ML VIAL IM PRN (14:44)
[2017-08-10] MEDS ORDERED: Bupivacaine HCl 0.5%/Epinephrine 1:200,000/PF 30 ml Vial ONE (14:51)
--- NOTE | 2017-08-10 15:12 | OP ---
DATE OF SURGERY: 08/10/2017 PREOPERATIVE DIAGNOSIS: End-stage renal disease. POSTOPERATIVE DIAGNOSIS: End-stage renal disease. PROCEDURE: Right IJ cuffed tunnel hemodialysis catheter, angiodynamics precurved. Ultrasound and fl uoroscopy used. Left arm primary fistula, perforating branch antecubital vein to the proximal radial artery, outflow cephalic vein only. Retrograde antecubital vein preserved. Note, coronary dilators to a 5 mm passed out the cephalic vein outflow although 3 mm coronary dilator met some irregularitie s in the distal cephalic vein just above the antecubital space fossa, Fogerty catheter passed through out its length into the superior vena cava and withdrawn. There was probably some irregularity in th e cephalic vein just above the antecubital fossa, but this seemed to be patent and patient had a good thrill after the procedure. SURGEON: Dr. Major Donohue. ANESTHESIA: Regional TIVA, local 0.5% Marcaine with epinephrine 30 mL mixed with Xylocaine, 10 mL. PROCEDURE IN DETAIL: Patient taken to the operating room where under intravenous sedation, his neck, chest, and left upper extremity was prepared with ChloraPrep, draped in routine fashion. Local anes thetic infiltrated into skin and subcutaneous tissue about the operative site for placement of hemodi alysis catheter. Ultrasound guidance was used to cannulate the right internal jugular vein. J-wire threaded, trocar catheter removed. Skin incised and enlarged sharply. Stab incision made over the r ight chest. Using the tunneling device, precurved angiodynamics cuffed tunnel hemodialysis catheter between the two incisions, placing the fabric cuff at the skin exit site. Dermabond and Biopatch chiquis lied. Smaller and medium-sized dilators placed over the J-wire into the internal jugular vein and re moved. Dilator and pull-away sheath placed over the J-wire in the superior vena cava and dilator and J-wire removed. Catheter placed with pull-away sheath and pull-away sheath removed. Platysma appro ximated with 4-0 Monocryl, skin with subdermal 4-0 Monocryl. Fluoroscopic images revealed good line placement. Each port aspirated blood and flushed with saline solution and heparinized saline solutio n 1000 units of heparin per mL indicated volume of the port. Sterile dressings applied. Attention was turned to the left upper extremity with a proximal volar longitudinal skin incision mad e just below the antecubital fossa and carried down through the skin and subcutaneous tissue. Skin a nd subcutaneous tissue was very edematous. The antecubital vein was very large. Retrograde antecubi joseph vein and perforating branch of antecubital vein dissected free and branches divided between clips and 4-0 silk ties and it was spatulated over a branch point and perforating branch of antecubital ve in interrogated passing coronary dilators from a 2.5 mm to a 5 mm coronary dilator out the cephalic v ein outflow where some irregularities appreciated in the cephalic vein outflow above the antecubital fossa. For this reason, the 5 Fogerty catheter was placed and balloon inflated and withdrawn noting some irregularities in the distal cephalic vein above the antecubital fossa, but it was seen to be nunez fficiently patent. Brachial artery, proximal radial artery and ulnar artery were clamped with vascul ar clamps after administering 5000 units of heparin intravenously. Longitudinal arteriotomy made in the proximal radial artery and the vein had been appropriately spatulated and perforating branch of a ntecubital vein anastomosed to the side, proximal radial artery with continuous suture of 6-0 Prolene . At completion of anastomosis, followed by removing these, the vascular clamps, there was excellent vascular Doppler signal in the cephalic vein outflow. Good hemostasis obtained with 6-0 Prolene and Surgicel and the patient given 25 mg of protamine. Subcutaneous tissues approximated with 3-0 Monoc ryl, skin with subdermal 4-0 Monocryl and DermaGlue applied.
--- NOTE | 2017-08-10 15:14 | RAD ---
1 VIEW CHEST: Date: 08/10/17 COMPARISON: 08/07/17. HISTORY: Status post peripheral dialysis catheter placement. FINDINGS: Enlarged cardiac silhouette. Pulmonary vessels are prominent. There is atherosclerosis of the aorta. Pleural and parenchymal changes have progressed in both lung bases. There is no pneumothorax. Right-s ided HemoSplit dialysis catheter projects over the superior vena cava. No osseous abnormalities. IMPRESSION: 1. Worsening volume overload. Continued surveillance. 2. Right-sided HemoSplit dialysis catheter. 3. No pneumothorax. POS: [facility]
--- NOTE | 2017-08-10 18:05 | PDOC.PN ---
- Subjective Encounter Start Date: 08/10/17 Encounter Start Time: 18:03 Mr. Dumont was seen today in dialysis for follow-up of renal disease. He says dialysis went well, and he didn't feel anything. - Objective MAR Reviewed: Yes Vital Signs & Weight: Vital Signs (12 hours) Temp Pulse Resp BP BP Pulse Ox 08/10/17 08:13 84 121/66 08/10/17 08:12 84 121/66 08/10/17 08:06 98.5 F 84 18 94 L 08/10/17 07:45 98.5 F 84 18 121/66 94 L Weight Admit Weight 149 lb 14.624 oz Weight 149 lb 14.624 oz I&O: 08/09/17 08/10/17 08/11/17 06:59 06:59 06:59 Intake Total 1000 970 Output Total 400 400 Balance 600 570 Result Diagrams: 08/04/17 04:17 08/10/17 04:53 Additional Labs: Accuchecks 08/10/17 08/10/17 08/10/17 15:24 10:51 03:58 POC Glucose 132 H 244 H 194 H 08/09/17 19:29 POC Glucose 127 H Phys Exam - Physical Examination HEENT: PERRLA Respiratory: no wheezing, no rales, no rhonchi, clear to auscultation bilateral Cardiovascular: RRR, no significant murmur Gastrointestinal: soft, non-tender, positive bowel sounds Musculoskeletal: no edema Dx/Plan (1) Cellulitis of scrotum Code(s): N49.2 - INFLAMMATORY DISORDERS OF SCROTUM Status: Acute (2) Acute worsening of stage 4 chronic kidney disease Code(s): N28.9 - DISORDER OF KIDNEY AND URETER, UNSPECIFIED; N18.4 - CHRONIC KIDNEY DISEASE, STAGE 4 (SEVERE) Status: Acute (3) Diabetes mellitus type 2, uncontrolled Code(s): E11.65 - TYPE 2 DIABETES MELLITUS WITH HYPERGLYCEMIA Status: Acute (4) Chronic combined systolic and diastolic heart failure Code(s): I50.42 - CHRONIC COMBINED SYSTOLIC AND DIASTOLIC HRT FAIL Status: Chronic (5) Cocaine abuse Code(s): F14.10 - COCAINE ABUSE, UNCOMPLICATED Status: Chronic (6) Hypertension Code(s): I10 - ESSENTIAL (PRIMARY) HYPERTENSION Status: Chronic Qualifiers: Hypertension type: essential hypertension Qualified Code(s): I10 - Essential (primary) hypertension - Plan * Newly diagnosed ESRD- patient is being prepared for outpatient dialysis * HTN- blood pressure is stable * DM- blood glucose is a bit labile- will monitor the trend, and adjust medication as needed * Scrotal edema- improved.
[2017-08-10] MEDS ORDERED: traMADol HCl 50 MG TAB PO PRN ×2 (18:27)
[2017-08-10] MEDS ORDERED: Acetaminophen 500 MG TAB PO PRN (18:27)
[2017-08-10] MEDS: Famotidine 20 MG TAB PO SCH (22:23)
[2017-08-10] MEDS: Insulin Detemir 100 UNITS/ML 10 UNITS in Pre-Filled Syringe 1 EACH SC SCH (22:24)
[2017-08-11 04:44] LABS: Anion Gap 12 mmol/L (10-20); BUN (Urea Nitrogen) 39 mg/dL (8.4-25.7); Calc. Creatinine Clearance 15 mL/min (70-130); Calcium 7.8 mg/dL (7.8-10.44); Carbon Dioxide 26 mmol/L (22-29); Chloride 105 mmol/L (98-107); Estimated GFR-MDRD 13
[2017-08-11] MEDS: Insulin Regular 300 UNITS/3 ML VIAL SC PRN (06:26)
[2017-08-11] MEDS: Calcium Acetate 667 MG CAP PO SCH ×3 (08:13→17:25)
[2017-08-11] MEDS: Sodium Bicarbonate Tab 325 MG TAB PO SCH ×3 (08:14→20:09)
[2017-08-11] MEDS: Tamsulosin HCl 0.4 MG CAP PO SCH (08:14)
[2017-08-11] MEDS: Ferrous Sulfate 325 MG TAB PO SCH ×2 (08:14→17:26)
[2017-08-11] MEDS: hydrALAZINE 25 MG TAB PO SCH ×4 (09:00→20:08)
[2017-08-11] MEDS: NIFEdipine XL 90 MG TAB PO SCH ×3 (09:00→20:08)
[2017-08-11] MEDS: Carvedilol 25 MG TAB PO SCH ×3 (09:00→20:09)
[2017-08-11] MEDS: hydrALAZINE 20 MG/ML VIAL SLOW IVP PRN (10:22)
--- NOTE | 2017-08-11 12:27 | PRG ---
Patient Name: CONNIE SALAZAR Date of service: 08/11/2017 Subjective: Patient was seen and examined at bedside and overnight events noted. Patient denies any shortness of breath or chest pain or palpitation. No history of nausea or vomiting or diarrhea or fever or chills or cramps. Objective: General: This is a well-built male in no apparent distress. Vital signs: Temperature 99, pulse 91, respiratory rate 16, blood pressure 127/ 70. HEENT: Atraumatic, normocephalic. Oral mucosa is moist. Neck: Supple. Cardiovascular: S1 S2 heard. Rate and rhythm regular. Respiratory: Clear to auscultation. Gastrointestinal: Abdomen is soft. Musculoskeletal: No tenderness. No edema. Dermatologic: No skin rash. Neurologic: Alert and awake and oriented X3. No focal neurologic deficits. Moving all the extremities. Psychiatric: Mood and affect normal. LABORATORY DATA: Potassium 4, BUN 39, creatinine 5.4. ASSESSMENT AND PLAN: 1. End-stage renal disease on hemodialysis during this admission. 2. Hypertension. 3. Anemia. 4. Edema - getting better. Plan is to continue on dialysis as tolerated. MTDD
[2017-08-11] MEDS: Epoetin (ESRD) 10,000 UNITS/ML VIAL SC SCH ×2 (14:37→16:13)
--- NOTE | 2017-08-11 17:18 | PDOC.PN ---
- Subjective Encounter Start Date: 08/11/17 Encounter Start Time: 17:17 Mr. Dumont was seen today in follow-up or kidney failure- He does not have any complaints today. He denies chest pain or shortness of breath. He believes the scrotal swelling has improved. - Objective MAR Reviewed: Yes Vital Signs & Weight: Vital Signs (12 hours) Temp Pulse Resp BP BP BP BP 08/11/17 16:21 76 102/66 08/11/17 16:06 97.4 F L 76 18 102/66 08/11/17 13:30 115/69 08/11/17 12:22 91 195/99 H 08/11/17 12:20 91 195/99 H 08/11/17 12:00 97.6 F 88 18 195/99 H 08/11/17 10:22 91 209/109 H 08/11/17 09:00 91 209/109 H 08/11/17 08:00 99.8 F H 91 20 205/103 H Pulse Ox 08/11/17 16:21 08/11/17 16:06 96 08/11/17 13:30 08/11/17 12:22 08/11/17 12:20 08/11/17 12:00 100 08/11/17 10:22 08/11/17 09:00 08/11/17 08:00 93 L Weight Admit Weight 149 lb 14.624 oz Weight 149 lb 14.624 oz I&O: 08/10/17 08/11/17 08/12/17 06:59 06:59 06:59 Intake Total 970 580 480 Output Total 400 400 Balance 570 180 480 Result Diagrams: 08/04/17 04:17 08/11/17 03:55 Additional Labs: Accuchecks 08/11/17 08/11/17 08/11/17 16:16 12:03 04:38 POC Glucose 77 99 256 H 08/10/17 22:21 POC Glucose 275 H Phys Exam - Physical Examination HEENT: PERRLA Respiratory: no wheezing, no rales, no rhonchi, clear to auscultation bilateral Cardiovascular: RRR, no significant murmur Gastrointestinal: soft, non-tender, positive bowel sounds Musculoskeletal: edema present Trace pedal edema Dx/Plan (1) Cellulitis of scrotum Code(s): N49.2 - INFLAMMATORY DISORDERS OF SCROTUM Status: Acute (2) Acute worsening of stage 4 chronic kidney disease Code(s): N28.9 - DISORDER OF KIDNEY AND URETER, UNSPECIFIED; N18.4 - CHRONIC KIDNEY DISEASE, STAGE 4 (SEVERE) Status: Acute (3) Diabetes mellitus type 2, uncontrolled Code(s): E11.65 - TYPE 2 DIABETES MELLITUS WITH HYPERGLYCEMIA Status: Acute (4) Chronic combined systolic and diastolic heart failure Code(s): I50.42 - CHRONIC COMBINED SYSTOLIC AND DIASTOLIC HRT FAIL Status: Chronic (5) Cocaine abuse Code(s): F14.10 - COCAINE ABUSE, UNCOMPLICATED Status: Chronic (6) Hypertension Code(s): I10 - ESSENTIAL (PRIMARY) HYPERTENSION Status: Chronic Qualifiers: Hypertension type: essential hypertension Qualified Code(s): I10 - Essential (primary) hypertension - Plan * End stage renal disease- Patient is tolerating dialysis * HTN- blood pressure has been labile, with highs in the 200's and low's in the 100-110 range- will continue the same scheduled regimen,with PRN's * DM- blood glucose is also very labile as well- will continue Levemir at 10 units and SSI * Outpatient arrangements for dialysis are in progress.
[2017-08-11] MEDS: Famotidine 20 MG TAB PO SCH (20:09)
[2017-08-11] MEDS: Insulin Detemir 100 UNITS/ML 10 UNITS in Pre-Filled Syringe SC SCH (20:10)
[2017-08-11] MEDS ORDERED: Insulin Detemir 100 UNITS/ML 15 UNITS in Pre-Filled Syringe 1 EACH SC SCH (21:00)
[2017-08-12 04:48] LABS: Anion Gap 11 mmol/L (10-20); BUN (Urea Nitrogen) 33 mg/dL (8.4-25.7); Calc. Creatinine Clearance 17 mL/min (70-130); Calcium 7.8 mg/dL (7.8-10.44); Carbon Dioxide 28 mmol/L (22-29); Chloride 103 mmol/L (98-107); Estimated GFR-MDRD 16
[2017-08-12] MEDS: Insulin Regular 300 UNITS/3 ML VIAL SC PRN ×2 (05:08→11:40)
[2017-08-12] MEDS: hydrALAZINE 25 MG TAB PO SCH ×3 (08:11→20:35)
[2017-08-12] MEDS: Sodium Bicarbonate Tab 325 MG TAB PO SCH ×3 (08:11→20:45)
[2017-08-12] MEDS: Calcium Acetate 667 MG CAP PO SCH ×3 (08:12→17:23)
[2017-08-12] MEDS: Carvedilol 25 MG TAB PO SCH ×2 (08:12→20:35)
[2017-08-12] MEDS: Ferrous Sulfate 325 MG TAB PO SCH ×2 (08:12→17:23)
[2017-08-12] MEDS: Tamsulosin HCl 0.4 MG CAP PO SCH (08:12)
[2017-08-12] MEDS: NIFEdipine XL 90 MG TAB PO SCH ×2 (08:13→20:46)
--- NOTE | 2017-08-12 10:38 | PDOC.PN ---
- Subjective Encounter Start Date: 08/12/17 Encounter Start Time: 10:30 Mr. Dumont was seen today in follow-up of renal failure. He does not have any complaints. - Objective MAR Reviewed: Yes Vital Signs & Weight: Vital Signs (12 hours) Temp Pulse Resp BP BP Pulse Ox 08/12/17 08:13 84 124/74 08/12/17 08:11 84 124/74 08/12/17 08:00 98.4 F 84 18 124/74 98 08/12/17 05:11 92 120/62 Weight Admit Weight 149 lb 14.624 oz Weight 149 lb 14.624 oz I&O: 08/11/17 08/12/17 08/13/17 06:59 06:59 06:59 Intake Total 580 1620 Output Total 400 3500 220 Balance 180 -1880 -220 Result Diagrams: 08/04/17 04:17 08/12/17 04:16 Additional Labs: Accuchecks 08/12/17 08/11/17 08/11/17 04:39 19:52 16:16 POC Glucose 245 H 151 H 77 08/11/17 12:03 POC Glucose 99 Phys Exam - Physical Examination HEENT: PERRLA Respiratory: no wheezing, no rales, no rhonchi, clear to auscultation bilateral Cardiovascular: RRR, no significant murmur, no rub Gastrointestinal: soft, non-tender, positive bowel sounds Musculoskeletal: no edema Dx/Plan (1) Cellulitis of scrotum Code(s): N49.2 - INFLAMMATORY DISORDERS OF SCROTUM Status: Acute (2) Acute worsening of stage 4 chronic kidney disease Code(s): N28.9 - DISORDER OF KIDNEY AND URETER, UNSPECIFIED; N18.4 - CHRONIC KIDNEY DISEASE, STAGE 4 (SEVERE) Status: Acute (3) Diabetes mellitus type 2, uncontrolled Code(s): E11.65 - TYPE 2 DIABETES MELLITUS WITH HYPERGLYCEMIA Status: Acute (4) Chronic combined systolic and diastolic heart failure Code(s): I50.42 - CHRONIC COMBINED SYSTOLIC AND DIASTOLIC HRT FAIL Status: Chronic (5) Cocaine abuse Code(s): F14.10 - COCAINE ABUSE, UNCOMPLICATED Status: Chronic (6) Hypertension Code(s): I10 - ESSENTIAL (PRIMARY) HYPERTENSION Status: Chronic Qualifiers: Hypertension type: essential hypertension Qualified Code(s): I10 - Essential (primary) hypertension - Plan * Scrotal edema- improving * HTN- blood pressure is labile- now is better controlled- will continue his current regimen * DM- blood glucose- also labile- will continue the current regimen with a sliding scale * ESRD- awaiting outpatient arrangements * Tobacco abuse- discussed smoking cessation.
--- NOTE | 2017-08-12 12:44 | PRG ---
DATE OF SERVICE: 08/12/2017 SUBJECTIVE: Patient was seen and examined at bedside and overnight events noted. Patient denies any shortness of breath or chest pain or palpitation. No history of nausea or vomiting or diarrhea or fever or chills or cramps. The patient reports that swelling is better, especially scrotal edema. OBJECTIVE: GENERAL: This is a thin built male in no apparent distress. VITAL SIGNS: Temperature 98.4, pulse 84, respiratory rate 18, blood pressure 124/74. HEENT: Atraumatic, normocephalic. Oral mucosa is moist. NECK: Supple. CARDIOVASCULAR: S1, S2 heard. Rate and rhythm regular. RESPIRATORY: Clear to auscultation. GASTROINTESTINAL: Abdomen is soft. MUSCULOSKELETAL: No tenderness, no edema. DERMATOLOGIC: No skin rash. NEUROLOGIC: Alert and awake and oriented x3. No focal neurologic deficits. Moving all the extremit ies. PSYCHIATRIC: Mood and affect normal LABORATORY DATA: Potassium is 4.1, BUN is 33, creatinine is 4.7. ASSESSMENT AND PLAN: 1. End-stage renal disease, started on hemodialysis during this admission as tolerated. We will con tinue on dialysis. 2. Edema, much better. 3. Hypertension. 4. Anemia. We will continue Epogen with dialysis. 5. Transfuse if hemoglobin less than 7. Plan is to continue on dialysis as tolerated. Follow with case management for outpatient placement.
[2017-08-12] MEDS: Insulin Detemir 100 UNITS/ML 10 UNITS in Pre-Filled Syringe SC SCH (20:50)
[2017-08-13 04:29] LABS: #Basophils 0.1 thou/uL (0.0-0.2); #Eosinphils 0.7 thou/uL (0.0-0.7); #Lymphocytes 1.2 thou/uL (1.20-3.40); #Monocytes 0.6 thou/uL (0.11-0.59); #Neutrophils 5.7 thou/uL (1.40-6.50); %Basophils 0.6 % (0.0-1.0); %Eosinophils 8.2 % (0.0-10.0); %Lymphocytes 14.1 % (21.0-51.0); %Monocytes 7.4 % (0.0-10.0); Hematocrit 20.1 % (42.0-52.0); Mean Platelet Volume 7.7 fL (7.4-10.4); Red Blood Cell (RBC) Count 2.39 mill/uL (4.70-6.10); White Blood Cell (WBC) Count 8.2 thou/uL (4.8-10.8)
[2017-08-13 04:48] LABS: Anion Gap 11 mmol/L (10-20); BUN (Urea Nitrogen) 36 mg/dL (8.4-25.7); Calc. Creatinine Clearance 15 mL/min (70-130); Carbon Dioxide 27 mmol/L (22-29); Chloride 104 mmol/L (98-107); Estimated GFR-MDRD 13
[2017-08-13] MEDS: Insulin Regular 300 UNITS/3 ML VIAL SC PRN (06:31)
[2017-08-13] MEDS: Famotidine 20 MG TAB PO SCH (08:52)
[2017-08-13] MEDS: Carvedilol 25 MG TAB PO SCH (08:55)
[2017-08-13] MEDS: hydrALAZINE 25 MG TAB PO SCH ×2 (08:55→15:22)
[2017-08-13] MEDS: Tamsulosin HCl 0.4 MG CAP PO SCH (08:55)
[2017-08-13] MEDS: Calcium Acetate 667 MG CAP PO SCH ×2 (08:55→12:17)
[2017-08-13] MEDS: Ferrous Sulfate 325 MG TAB PO SCH (08:55)
[2017-08-13] MEDS: NIFEdipine XL 90 MG TAB PO SCH (08:55)
[2017-08-13] MEDS: Sodium Bicarbonate Tab 325 MG TAB PO SCH ×2 (08:56→15:22)
--- NOTE | 2017-08-13 10:47 | PRG ---
DATE OF SERVICE: 08/13/2017 SUBJECTIVE: This is a 57-year-old gentleman being seen for end-stage renal disease. The patient den ies any nausea, vomiting or chest pain. PHYSICAL EXAMINATION: GENERAL: Patient is awake, alert. VITAL SIGNS: Afebrile, pulse 75, breathing at 16, blood pressure 121/71. GENERAL APPEARANCE AND MENTAL STATUS: Fair. HEAD/NECK: Normocephalic. Atraumatic. EYES: EOMI. No deformity. EARS: Clear. No ulcers. NOSE: Intact. No lesions. MOUTH: Clear. No discharge. THROAT: Clear. No exudate. LUNGS: Clear. No crackles. CARDIAC: S1, S2. No rub. ABDOMEN: Benign. BS+. GENITALIA/RECTUM: Palm absent. BACK/EXTREMITIES: Edema 0+ Ulcer- NEUROLOGICAL: Alert and motor intact. SKIN: Rash- Bruise- LYMPHATICS: Edema- Ulcer- LABORATORY DATA: Show hemoglobin is 6.6. ASSESSMENT AND RECOMMENDATIONS: 1. Chronic kidney disease stage 6, plan dialysis. 2. Anemia, plan . 3. Hypertension, stable. 4. Medications based on glomerular filtration rate are appropriate.
[2017-08-13] MEDS ORDERED: Epoetin (ESRD) 10,000 UNITS/ML VIAL IVP SCH (11:57)
[2017-08-13 13:34] VITALS: TEMP 99
[2017-08-13 15:26] VITALS: BP 154/89
--- NOTE | 2017-08-13 16:13 | PDOC.PN ---
- Subjective Encounter Start Date: 08/13/17 Encounter Start Time: 16:11 Mr. Dumont was seen in follow-up of Acute renal failure. He does not have any complaints. He says he is leaving in a few minutes, regardless if paperwork is complete. - Objective MAR Reviewed: Yes Vital Signs & Weight: Vital Signs (12 hours) Temp Pulse Pulse Resp BP BP BP 08/13/17 15:22 154/89 H 08/13/17 13:32 99 F 77 18 140/75 08/13/17 13:00 97.6 F 77 18 158/87 H 08/13/17 12:45 97.7 F 79 18 150/86 H 08/13/17 12:37 97.6 F 76 18 148/81 H 08/13/17 12:18 97.8 F 76 18 136/69 08/13/17 12:00 97.7 F 75 18 120/68 08/13/17 11:50 97.7 F 78 18 122/73 08/13/17 09:00 98.4 F 89 18 141/84 H 08/13/17 08:00 98.4 F 89 18 Pulse Ox 08/13/17 15:22 08/13/17 13:32 08/13/17 13:00 08/13/17 12:45 08/13/17 12:37 08/13/17 12:18 08/13/17 12:00 08/13/17 11:50 08/13/17 09:00 92 L 08/13/17 08:00 92 L Weight Admit Weight 149 lb 14.624 oz Weight 149 lb 14.624 oz I&O: 08/12/17 08/13/17 08/14/17 06:59 06:59 06:59 Intake Total 1620 1700 700 Output Total 3500 600 Balance -1880 1100 700 Result Diagrams: 08/13/17 04:05 08/13/17 04:05 Additional Labs: Accuchecks 08/13/17 08/12/17 08/12/17 06:31 20:39 15:44 POC Glucose 254 H 204 H 133 H Phys Exam - Physical Examination HEENT: PERRLA Respiratory: no wheezing, no rales, no rhonchi, clear to auscultation bilateral Cardiovascular: RRR, no significant murmur, no rub Gastrointestinal: soft, non-tender, positive bowel sounds Musculoskeletal: no edema Dx/Plan (1) Cellulitis of scrotum Code(s): N49.2 - INFLAMMATORY DISORDERS OF SCROTUM Status: Acute (2) Acute worsening of stage 4 chronic kidney disease Code(s): N28.9 - DISORDER OF KIDNEY AND URETER, UNSPECIFIED; N18.4 - CHRONIC KIDNEY DISEASE, STAGE 4 (SEVERE) Status: Acute (3) Diabetes mellitus type 2, uncontrolled Code(s): E11.65 - TYPE 2 DIABETES MELLITUS WITH HYPERGLYCEMIA Status: Acute (4) Chronic combined systolic and diastolic heart failure Code(s): I50.42 - CHRONIC COMBINED SYSTOLIC AND DIASTOLIC HRT FAIL Status: Chronic (5) Cocaine abuse Code(s): F14.10 - COCAINE ABUSE, UNCOMPLICATED Status: Chronic (6) Hypertension Code(s): I10 - ESSENTIAL (PRIMARY) HYPERTENSION Status: Chronic Qualifiers: Hypertension type: essential hypertension Qualified Code(s): I10 - Essential (primary) hypertension - Plan * ESRD- stable- outpatient dialysis arrangements have been made * Will discharge home.
--- NOTE | 2017-08-13 22:57 | DIS ---
DATE OF ADMISSION: 08/01/2017 DATE OF DISCHARGE: 08/13/2017 PRIMARY CARE PHYSICIAN: Dr. Radha Almanzar. DISCHARGE DISPOSITION: Home. PRIMARY DISCHARGE DIAGNOSES: 1. End-stage renal disease, newly started on hemodialysis. 2. Diabetes mellitus type 2, uncontrolled. 3. Hypertension. 4. Chronic systolic and diastolic heart failure. 5. Benign prostatic hypertrophy. 6. Peripheral vascular disease, status post right [id number] amputation. DISCHARGE MEDICATIONS: Include Flomax 0.4 mg daily, sodium bicarbonate 650 mg twice a day, Procardia 60 mg daily, Humulin R 5 units t.i.d., Levemir insulin 15 units subcu at bedtime, iron sulfate 325 m g twice a day, carvedilol 25 mg twice daily, PhosLo 667 mg daily, hydralazine 50 mg t.i.d. and nifedi pine 90 mg twice daily. CODE STATUS: FULL CODE. ALLERGIES: No known drug allergies. PROCEDURES DONE DURING ADMISSION: The patient had a testicular ultrasound showing adequate vascular flow to both testes. There was severe scrotal swelling, bilateral hydroceles. The patient had vein mapping and AV fistula placed as well as a temporary dialysis catheter. HOSPITAL COURSE: Mr. Dumont is a pleasant 57-year-old gentleman who was admitted due to severe scrotal swelling and pain. 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 He was placed on IV antibiotics and was seen by both Urology as well as ID. It was ultimately determined that the scr otal swelling was likely as a result of volume overload and edema, more so than an inflammatory proce ss. He developed new onset end-stage renal disease during this hospital stay and was initiated on di alysis. Once arrangements were made for him to undergo dialysis at home in the outpatient setting, stephen ramirze was subsequently discharged home. Blood pressure medications were also adjusted during his hospita l stay and hydralazine and Procardia were added to his regimen.
--- NOTE | 2017-09-21 15:00 | EKG ---
Test Reason : Blood Pressure : / mmHG Vent. Rate : 080 BPM Atrial Rate : 080 BPM P-R Int : 140 ms QRS Dur : 082 ms QT Int : 402 ms P-R-T Axes : 068 049 071 degrees QTc Int : 463 ms Normal sinus rhythm Possible Left atrial enlargement Borderline ECG Confirmed by VANESSA DIOR, PRAVEENA Hughes ([id number]), film editor supervisor GUILLERMO FLORES ([id number]) on 09/21/2017 2:59:41 PM Referred By: VANESSA Confirmed By:PRAVEENA MENDEZ MD
== END 2017-08-13 16:19 | disposition home or self-care (01) | DRG 673 ==
LOC: ERS 12:50 → IMCU/EMU 15:18 → T4-A 08-02 17:51
PROVIDERS: ADMIT Internal Medicine; ATTEND Internal Medicine
PROC: 5A1D70Z Performance of Urinary Filtration, Intermittent, Less than 6 Hours Per Day (ICD-10-PCS; principal; 2017-08-10)
PROC: 031C09F Bypass Left Radial Artery to Lower Arm Vein with Autologous Venous Tissue, Open Approach (ICD-10-PCS; 2017-08-10)
PROC: 02HV33Z Insertion of Infusion Device into Superior Vena Cava, Percutaneous Approach (ICD-10-PCS; 2017-08-10)
DX: E11.22 Type 2 diabetes mellitus with diabetic chronic kidney disease (principal); L89.153 Pressure ulcer of sacral region, stage 3; N17.9 Acute kidney failure, unspecified; I13.2 Hypertensive heart and chronic kidney disease with heart failure and with stage 5 chronic kidney disease, or end stage renal disease; N18.6 End stage renal disease; E87.2 Acidosis; I50.42 Chronic combined systolic (congestive) and diastolic (congestive) heart failure; E87.1 Hypo-osmolality and hyponatremia; E44.0 Moderate protein-calorie malnutrition; E11.00 Type 2 diabetes mellitus with hyperosmolarity without nonketotic hyperglycemic-hyperosmolar coma (NKHHC); Z89.511 Acquired absence of right leg below knee; Z91.14 Patient's other noncompliance with medication regimen; N40.0 Benign prostatic hyperplasia without lower urinary tract symptoms; D63.1 Anemia in chronic kidney disease; E11.40 Type 2 diabetes mellitus with diabetic neuropathy, unspecified; R62.7 Adult failure to thrive; F14.10 Cocaine abuse, uncomplicated
CPT/HCPCS: 36415; 36416; 36430; 71010; 76870; 80048; 80053; 80069; 80202; 80306; 81003; 81015; 82010; 82553; 82805; 83605; 83690; 83735; 84100; 84484; 85025; 86140; 86580; 86704; 86706; 86803; 86850; 86900; 86901; 87040; 87086; 87340; 90935; 93005; 93306; 93970; 93976; 94640; 96361; 96365; 96366; 96367; 96368; 96372; 96375; 96376; A4216; C1752; C1769; G0257; G0365; G8978-GP-CL; G8979-GP-CI; G8987-GO-CJ; G8988-GO-CI; J0360; J0670; J1644; J1815; J1940; J2250; J2270; J2543; J2704; J2720; J3010; J3370; J3490; J7050; J7070; J7620; P9016; Q4081

== ENCOUNTER 2017-09-11 18:37 | Inpatient (IN) | payer OTHER ==
[2017-09-11 19:26] LABS: #Eosinphils 1.1 thou/uL (0.0-0.7); #Lymphocytes 0.7 thou/uL (1.20-3.40); #Monocytes 0.4 thou/uL (0.11-0.59); #Neutrophils 6.8 thou/uL (1.40-6.50); %Basophils 0.4 % (0.0-1.0); %Monocytes 4.7 % (0.0-10.0); Hematocrit 37.4 % (42.0-52.0); Mean Platelet Volume 9.8 fL (7.4-10.4); Red Blood Cell (RBC) Count 4.27 mill/uL (4.70-6.10)
[2017-09-11 19:48] LABS: ALT (SGPT) 8 U/L (8-55); AST (SGOT) 17 U/L (5-34); Alkaline Phosphatase 126 U/L (40-150); Anion Gap 9 mmol/L (10-20); BUN (Urea Nitrogen) 15 mg/dL (8.4-25.7); Bilirubin, Total 0.3 mg/dL (0.2-1.2); Calc. Creatinine Clearance 0 mL/min (70-130); Carbon Dioxide 30 mmol/L (22-29); Chloride 86 mmol/L (98-107); Estimated GFR-MDRD 22; Globulin 3.5 g/dL (2.4-3.5); Protein, Total 5.9 g/dL (6.0-8.3)
[2017-09-11 20:21] LABS: Anion Gap 9 mmol/L (-14-95); Critical Call POC Critical Value; T. Carbon Dioxide 33.5 mmol/L (1.0-85.0); pH (Venous) 7.415 (7.35-7.45); vO2 Saturation-calc 86.4 % (0.0-100.0)
[2017-09-11 20:22] LABS: Prothrombin Time 14.8 SEC (12.0-14.7)
[2017-09-11] MEDS ORDERED: Insulin Regular 100 units/100 ml in NS IVPB SCH (20:30)
[2017-09-11 20:36] LABS: Troponin I 0.034 ng/mL (< 0.028)
[2017-09-11] MEDS ORDERED: Calcium Chloride 1 GM/10 ML Abboject SYRINGE ONE (20:38)
[2017-09-11] MEDS ORDERED: D5 1/2 NS w/20 mEq KCL 1,000 ML IV SCH (20:45)
[2017-09-11 20:58] LABS: Bilirubin Negative (Negative); Blood, Urine Small (Negative); Glucose, Urine (Dipstick) >=1000 mg/dL (Negative); Ketone, Urine Negative (Negative); Nitrite Negative (Negative); Protein, Urine (Dipstick) 300 mg/dL (Neg-Trace); Urobilinogen 0.2 mg/dL (0.2-1.0)
--- NOTE | 2017-09-11 20:59 | CT ---
CT BRAIN 09/11/17 PROVIDED CLINICAL HISTORY: Seizure. FINDINGS: Comparison 05/08/17. The ventricular system appears normal in size and morphology. There is no evidence for intracranial h emorrhage or mass effect. Extracranial soft tissues and osseous structures demonstrate no acute abnor mality. IMPRESSION: No evidence for intracranial hemorrhage or mass effect. POS: [facility]
[2017-09-11 21:00] LABS: Bacteria/HPF None Seen HPF (None Seen); Hyaline Casts/LPF 0-3 HYALINE CAST LPF (0-3 Hyaline); Squamous Epithelial 0-3 HPF (0-3); WBC/HPF 0-3 HPF (0-3)
--- NOTE | 2017-09-11 21:02 | RAD ---
PORTABLE CHEST' 09/11/17 PROVIDED CLINICAL HISTORY: Seizure. FINDINGS: Comparison 08/10/17. The cardiac silhouette remains enlarged. Right sided dialysis catheter is again seen in similar posit ion. Patchy predominant linear parenchymal opacity at the right lung base suggests subsegmental atele ctasis or scarring. The lungs appear otherwise clear. There is no pleural fluid or pneumothorax appar ent. IMPRESSION: Cardiomegaly without definite evidence for an acute cardiopulmonary process. POS: [facility]
[2017-09-11] MEDS ORDERED: D5 1/2 NS w/20 mEq KCL 1,000 ML ONE (21:05)
[2017-09-11] MEDS ORDERED: diphenhydrAMINE 50 MG/ML VIAL ONE (21:16)
[2017-09-11 22:04] LABS: Amphetamine Not Detected (NotDetected); Methamphetamine Not Detected (NotDetected)
[2017-09-11 22:05] LABS: Methadone Not Detected (NotDetected)
--- NOTE | 2017-09-11 22:30 | ULT ---
LEFT UPPER EXTREMITY VENOUS DOPPLER 09/11/17 PROVIDED CLINICAL HISTORY: Left arm edema. FINDINGS: Vasquez scale and color doppler sonography with spectral analysis was performed of the left internal jug ular, subclavian, axillary, basilic, cephalic, brachial, radial and ulnar veins, demonstrating no kamini dence for venous thrombosis. The patient's fistula demonstrates positive arterial flow. IMPRESSION: No evidence for left upper extremity venous thrombosis. POS: [facility]
[2017-09-11] MEDS ORDERED: Ondansetron HCl/PF 4 MG/2 ML Vial IVP PRN ×2 (22:58→23:56)
[2017-09-11] MEDS ORDERED: Ondansetron ODT 4 MG TAB SL PRN (22:58)
[2017-09-11] MEDS ORDERED: Acetaminophen 325 MG TAB PO PRN ×2 (22:58→23:56)
[2017-09-11 23:43] VITALS: BMI 27.3
[2017-09-11] MEDS ORDERED: Dextrose 5% in Water 1,000 ML IV PRN (23:56)
[2017-09-11] MEDS ORDERED: HumaLOG 300 UNITS/3 ML VIAL SC PRN (23:56)
[2017-09-12 00:51] LABS: Anion Gap 8 mmol/L (10-20); BUN (Urea Nitrogen) 15 mg/dL (8.4-25.7); Calc. Creatinine Clearance 24 mL/min (70-130); Calcium 7.1 mg/dL (7.8-10.44); Carbon Dioxide 27 mmol/L (22-29); Chloride 91 mmol/L (98-107); Estimated GFR-MDRD 22
[2017-09-12 00:58] LABS: Troponin I 0.032 ng/mL (< 0.028)
[2017-09-12] MEDS ORDERED: Insulin Detemir 100 UNITS/ML 30 UNITS in Pre-Filled Syringe 1 EACH SC SCH ×3 (01:35→09:00)
--- NOTE | 2017-09-12 02:51 | HP ---
DATE OF ADMISSION: 09/11/2017 REASON FOR ADMISSION: Hyperosmolar diabetes, seizures likely due to hyperglycemia, demand ischemia, cocaine abuse, failure to thrive, noncompliance. HISTORY OF PRESENT ILLNESS: Patient says he had hemodialysis yesterday. He apparently lives with his aunt, who witnessed a seizure at home. She called EMS and patient was brought to the ER here. On arrival, patient had a serum glucose of 1118. In the CT scanner patient had another episode of seizures, which were generalized shaking per staff who witnessed. It is not clear whether this was a grand-mal seizure. He has received 2 liters of normal saline in the ER with potassium supplements as well. Patient is not a very good historian. No complaints of chest pain or shortness of breath at present. Patient states he takes sliding scale insulin at home and no other insulin as such. Per medical records, patient is on Levemir 30 units subcutaneous twice daily which is not clear if he is compliant taking it at home. No complaints of fever. He is able to move all 4 extremities here on the ER gurney. PAST MEDICAL AND SURGICAL HISTORY: Patient has had recurrent hospitalizations here for hyperosmolar diabetes, end-stage renal disease on hemodialysis, history of CHF with systolic and diastolic dysfunction, prostatic hypertrophy, diabetes mellitus type 2, chronic anemia, hypertension, prior cystoscopy, right [id number] amputation, dialysis access procedures, substance abuse. PERSONAL HISTORY: Patient has chronic cocaine abuse. Denies smoking or alcohol usage. Lives with his aunt. FAMILY HISTORY: Positive for diabetes. ALLERGIES: No known drug allergies. CURRENT MEDICATIONS: Hydralazine 50 mg 3 times daily, ferrous sulfate 325 mg twice daily, Coreg 25 mg twice daily, PhosLo 667 mg p.o. 3 times daily, Levemir 15 units subcutaneous at bedtime, Humulin R 5 units subcutaneous 3 times daily, Procardia-XL 90 mg twice daily, Flomax 0.4 mg daily. REVIEW OF SYSTEMS: The following complete review of systems was negative, unless otherwise mentioned in the HPI or below: Constitutional: Weight loss or gain, ability to conduct usual activities. Skin: Rash, itching. Eyes: Double vision, pain. ENT/Mouth: Nose bleeding, neck stiffness, pain, tenderness. Cardiovascular: Palpitations, dyspnea on exertion, orthopnea. Respiratory: Shortness of breath, wheezing, cough, hemoptysis, fever, or night sweats. Gastrointestinal: Poor appetite, abdominal pain, heartburn, nausea, vomiting, constipation, or diarrhea. Genitourinary: Urgency, frequency, dysuria, nocturia. Musculoskeletal: Pain, swelling. Neurologic/Psychiatric: Anxiety, depression. Allergy/Immunologic: Skin rash, bleeding tendency. PHYSICAL EXAMINATION: GENERAL: The patient is a 57-year-old male who is currently not in any acute distress. VITAL SIGNS: Blood pressure on arrival was 170/78, pulse 80 per minute, respiratory rate 18 per minute, temperature 97.7 degrees Fahrenheit, saturating 94% on room air. NECK: Supple, no elevated JVD. HEENT: Extraocular muscles intact. Pupils reacting to light. Oral cavity, mucous membranes are dry. No exudates or congestion. CARDIOVASCULAR SYSTEM: S1, S2 heard. Regular rhythm. RESPIRATORY SYSTEM: Air entry 1+ bilateral. No rales or rhonchi. ABDOMEN: Soft, bowel sounds heard. No tenderness, rigidity, or guarding. EXTREMITIES: Patient has a right BKA. No peripheral edema or calf tenderness. VASCULAR SYSTEM: Peripheral pulses 1+ bilateral. No ischemic ulcerations or gangrene. CENTRAL NERVOUS SYSTEM: No gross focal deficits seen. Patient is lethargic, but responds to verbal questions. He is not fully oriented. PSYCHIATRIC SYSTEM: Cannot be assessed as patient is currently postictal. LABORATORY DATA AND X-RAY FINDINGS: White count of 9, H&H 11 and 37, platelet count is 181, MCV is 87 with 74% neutrophils. Venous blood gas shows pH of 7.41 , bicarbonate on the blood gas is 32. Sodium 125, potassium 3.0. Serum bicarbonate 30, BUN 15, creatinine 3.56, serum glucose is 1118, magnesium 1.4. Liver enzymes within normal limits. Albumin is 2.4, troponin I 0.03. BNP is 3229. TSH 2.98. Prolactin level of 15.94. Urine drug screen is positive for cocaine metabolites. CT brain done shows no acute intracranial abnormalities. Chest x-ray done shows mild cardiomegaly, otherwise no acute infiltrate. Left upper extremity ultrasound venous Doppler done showed no evidence of DVT. CLINICAL IMPRESSION AND PLAN: Patient will be admitted to ICU for hyperosmolar state due to noncompliance with medications likely, seizures x3 due to hyperosmolar state, demand ischemia, cocaine abuse, failure to thrive, noncompliance with medications with recurrent hospitalizations. Patient will be loaded up on Keppra 500 mg IV twice daily. He has had nearly three seizures now. The plan is to slowly reduce his serum glucose. He will be placed on insulin drip at 8 units per hour. We will also give one dose of Levemir 30 units now. He has received 2 liters of normal saline in the ER and will be continued on 100 mL per hour. His electrolytes will be closely monitored. A 20 mEq of potassium in each liter will be given. He will be kept n.p.o. for now. He will be on Pepcid 20 mg IV q.12 and Flomax 0.4 mg p.o. daily. We will consult Dr. Brandon for Nephrology for his dialysis and Dr. Rodriguez for critical care. We will continue to closely monitor him in ICU. A Palliative Care consultation will also be requested due to recurrent hospitalization. Please note, I have seen and examined the patient on 09/11/2017. [facility]
[2017-09-12 04:37] LABS: #Eosinphils 1.5 thou/uL (0.0-0.7); #Lymphocytes 0.9 thou/uL (1.20-3.40); #Monocytes 0.4 thou/uL (0.11-0.59); #Neutrophils 8.3 thou/uL (1.40-6.50); %Basophils 0.1 % (0.0-1.0); %Eosinophils 13.9 % (0.0-10.0); %Lymphocytes 8.3 % (21.0-51.0); %Monocytes 3.3 % (0.0-10.0); Hematocrit 36.5 % (42.0-52.0); Mean Platelet Volume 10.2 fL (7.4-10.4); Red Blood Cell (RBC) Count 4.31 mill/uL (4.70-6.10); White Blood Cell (WBC) Count 11.1 thou/uL (4.8-10.8)
[2017-09-12 04:53] LABS: Anion Gap 12 mmol/L (10-20); BUN (Urea Nitrogen) 16 mg/dL (8.4-25.7); Calc. Creatinine Clearance 25 mL/min (70-130); Calcium 7.6 mg/dL (7.8-10.44); Carbon Dioxide 25 mmol/L (22-29); Chloride 93 mmol/L (98-107); Estimated GFR-MDRD 23; Troponin I 0.029 ng/mL (< 0.028)
[2017-09-12] MEDS: NS 0.9% w/ 20 MEQ KCL 1,000 ML IV SCH ×2 (06:24)
[2017-09-12] MEDS: Calcium Acetate 667 MG CAP PO SCH ×3 (08:42→17:23)
[2017-09-12] MEDS: Famotidine/PF 20 mg/2ml Vial SLOW IVP SCH (08:43)
[2017-09-12] MEDS: Heparin 5,000 UNITS/ML VIAL SC SCH ×2 (08:43→21:20)
[2017-09-12] MEDS: Tamsulosin HCl 0.4 MG CAP PO SCH (08:43)
--- NOTE | 2017-09-12 09:50 | CON ---
DATE OF CONSULTATION: 09/12/2017 CONSULTING PHYSICIAN: Dr. Best REASON FOR CONSULTATION: Hyperglycemia. HISTORY OF PRESENT ILLNESS: Mr. Dumont is a 57-year-old male who is well acquainted with our service. He has seen Dr. Prado in the past. I have also seen him on one occasion. He came in last night aft er hemodialysis with an apparent witnessed seizure at home. He was noted to have a glucose level gre ater than 1000. Apparently he has been noncompliant with his medications. PAST MEDICAL HISTORY: 1. Recurrent episodes of hyperglycemia with hyperosmolar state. 2. Diabetes mellitus. 3. End-stage renal disease requiring hemodialysis. 4. Congestive heart failure with systolic and diastolic components. 5. Prostatic hypertrophy. 6. Anemia secondary to renal disease. 7. Peripheral vascular disease. PAST SURGICAL HISTORY: 1. He has had a right zoqnp-mmi-xcxa amputation. 2. Dialysis access with a catheter in the right IJ. 3. Cystoscopy. SOCIAL HISTORY: He does not smoke, does not drink alcohol. Previous drug screens have been positive for cocaine. ALLERGIES: None. MEDICATIONS PRIOR TO ADMISSION: Hydralazine, tamsulosin, sodium bicarbonate, Procardia-XL, detemir i nsulin, iron sulfate, Coreg, calcium. REVIEW OF SYSTEMS: The patient will not answer any questions for me because he says he wants to slee p. PHYSICAL EXAMINATION: VITAL SIGNS: Temperature 98.5, pulse 86, blood pressure 156/82. GENERAL: He is awake, but refuses to cooperate with any kind of exam or history. HEENT: Pupils react. Sclerae are anicteric. Oropharynx dry. NECK: No JVD. LUNGS: He has a right tunneled IJ catheter in place. CARDIOVASCULAR: S1, S2 regular. LUNGS: Clear. ABDOMEN: Soft, nontender. EXTREMITIES: Right sqemw-rjq-nekh amputation. LABORATORY AND X-RAY FINDINGS: Sodium 127, potassium 3, chloride 93, CO2 25, BUN 16, creatinine 3.4, glucose 924, calcium 7.6, troponin 0.3. White blood cell count 11.1, hematocrit 36.5, platelet coun t 177. Toxicology screen is positive for cocaine. Chest x-ray reviewed by myself personally demonst rates cardiomegaly with no acute infiltrates. Brain CT showed no evidence of intracranial hemorrhage or mass effect. Ultrasound of the left arm was negative for thrombosis. ASSESSMENT: 1. Hyperosmolar nonketotic hyperglycemia secondary to noncompliance with insulin. 2. Chronic renal failure. 3. Cocaine abuse. PLAN: 1. Gentle hydration. 2. Insulin drip. 3. Nephrology consult with likely dialysis. 4. Dr. Prado will be notified of the patient's admission.
[2017-09-12 10:08] LABS: Anion Gap 12 mmol/L (10-20); BUN (Urea Nitrogen) 16 mg/dL (8.4-25.7); Calc. Creatinine Clearance 27 mL/min (70-130); Calcium 7.5 mg/dL (7.8-10.44); Carbon Dioxide 24 mmol/L (22-29); Chloride 99 mmol/L (98-107); Estimated GFR-MDRD 24
[2017-09-12] MEDS ORDERED: Potassium Chloride 20 MEQ TAB PO SCH (10:30)
[2017-09-12] MEDS ORDERED: Potassium Chloride 20 MEQ in Premix Bag 1 BAG IVPB SCH (10:30)
--- NOTE | 2017-09-12 13:51 | PDOC.PN ---
- Subjective Encounter Start Date: 09/12/17 Encounter Start Time: 13:48 Subjective: Seen and examined had seizure episode today- -: just finished with HD - Objective Resuscitation Status: Resuscitation Status FULL:Full Resuscitation Vital Signs & Weight: Vital Signs (12 hours) Temp Pulse Resp Pulse Ox 09/12/17 12:00 98.4 F 09/12/17 07:57 98.5 F 82 18 98 09/12/17 07:00 98.5 F 09/12/17 04:00 98.6 F Weight Weight 159 lb 13.362 oz Most Recent Monitor Data Heart Rate from ECG 80 NIBP 142/84 NIBP BP-Mean 98 Respiration from ECG 14 SpO2 100 I&O: 09/11/17 09/12/17 09/13/17 06:59 06:59 06:59 Intake Total 1191.5 210 Output Total 775 420 Balance 416.5 -210 Result Diagrams: 09/12/17 03:58 09/12/17 09:28 Additional Labs: Accuchecks 09/12/17 09/12/17 09/12/17 13:30 12:43 11:42 POC Glucose 95 119 H 184 H 09/12/17 09/12/17 09/12/17 10:41 09:30 08:41 POC Glucose 281 H 444 H 492 H 09/12/17 09/12/17 09/12/17 07:36 06:04 05:02 POC Glucose Greater than 550 H* Greater than 550 H* Greater than 550 H* 09/12/17 09/12/17 09/12/17 03:58 03:02 01:59 POC Glucose Greater than 550 H* Greater than 550 H* Greater than 550 H* 09/12/17 00:22 POC Glucose Greater than 550 H* Phys Exam - Physical Examination Constitutional: NAD HEENT: PERRLA, moist MMs, sclera anicteric, TM's clear Neck: no nodes, no JVD, supple, full ROM Respiratory: no wheezing, no rales, no rhonchi, clear to auscultation bilateral Cardiovascular: RRR, no significant murmur, no rub Gastrointestinal: soft, non-tender, no distention, positive bowel sounds Musculoskeletal: no edema, pulses present Dx/Plan (1) Hyperosmolar non-ketotic state in patient with type 2 diabetes mellitus Code(s): E11.01 - TYPE 2 DIABETES MELLITUS WITH HYPEROSMOLARITY WITH COMA Status: Acute (2) Seizure Code(s): R56.9 - UNSPECIFIED CONVULSIONS Status: Acute (3) Hypokalemia Code(s): E87.6 - HYPOKALEMIA Status: Acute (4) ESRD (end stage renal disease) Code(s): N18.6 - END STAGE RENAL DISEASE Status: Acute (5) Diabetes mellitus type 2, uncontrolled Code(s): E11.65 - TYPE 2 DIABETES MELLITUS WITH HYPERGLYCEMIA Status: Acute (6) Anemia of renal disease Code(s): D63.1 - ANEMIA IN CHRONIC KIDNEY DISEASE Status: Chronic - Plan PT/OT, social worker, respiratory therapy D/c IVF -: Replete potassium prn per oral route -: On keppra-this is likely metabolically induced seizure -: start levemir and moderate sliding scale -: Counselling on drug abuse and medical compliance * .
[2017-09-12] MEDS ORDERED: Insulin Regular 300 UNITS/3 ML VIAL SC PRN (13:59)
[2017-09-12] MEDS ORDERED: Dextrose 50% Abboject 50 ML SYRINGE SLOW IVP PRN (13:59)
[2017-09-12] MEDS ORDERED: Dextrose 5% in Water 1,000 ML IV PRN (13:59)
[2017-09-12 14:40] LABS: Anion Gap 7 mmol/L (10-20); BUN (Urea Nitrogen) 9 mg/dL (8.4-25.7); Calc. Creatinine Clearance 50 mL/min (70-130); Calcium 7.1 mg/dL (7.8-10.44); Carbon Dioxide 28 mmol/L (22-29); Chloride 106 mmol/L (98-107); Estimated GFR-MDRD 51
[2017-09-12 16:32] LABS: Anion Gap 10 mmol/L (-14-95); Critical Call POC Critical Value; Lactate 0.75 mmol/L (0.50-2.20); POC Est. GFR-MDRD-African-Amer 29; POC Estimated GFR-MDRD 24; T. Carbon Dioxide 29.7 mmol/L (1.0-85.0); pH (Venous) 7.342 (7.35-7.45); vO2 Saturation-calc 68.5 % (0.0-100.0)
[2017-09-12] MEDS: Dextrose 50% Abboject 50 ML SYRINGE SLOW IVP PRN ×3 (16:47→23:24)
[2017-09-12] MEDS ORDERED: Dextrose 5% in Water 1,000 ML IV SCH (17:15)
[2017-09-12 18:37] LABS: Anion Gap 7 mmol/L (10-20); BUN (Urea Nitrogen) 9 mg/dL (8.4-25.7); Calc. Creatinine Clearance 42 mL/min (70-130); Calcium 7.4 mg/dL (7.8-10.44); Carbon Dioxide 29 mmol/L (22-29); Chloride 101 mmol/L (98-107); Estimated GFR-MDRD 41
[2017-09-12] MEDS: Dextrose 5 % And 0.9 % NaCl 1,000 ML IV SCH (19:15)
--- NOTE | 2017-09-12 20:44 | CON ---
DATE OF CONSULTATION: 09/12/2017 REASON FOR CONSULTATION: Stage 6 chronic kidney disease, on maintenance hemodialysis. HISTORY OF PRESENT ILLNESS: This is a 57-year-old gentleman who presented to the hospital in hyperos molar diabetic state and cocaine use. The patient can give no further history. PAST MEDICAL HISTORY: Significant for hypertension, congestive heart failure, diabetes mellitus, cys toscopy, left below knee amputation and dialysis access surgeries. HOME MEDICATIONS: Reviewed. ALLERGIES: Reviewed. REVIEW OF SYSTEMS: Fifteen point review of systems was performed and was negative except for positiv es noted above. GENERAL: Weakness- HEAD: Headache- NECK: No swelling or lumps. NOSE: No epistaxis or discharge. EYES: No diplopia or pain. RESPIRATORY: Dyspnea- CARDIOVASCULAR: Chest pain- GASTROINTESTINAL: Nausea- /OTR [employer] DRIVER: Hematuria- MUSCULOSKELETAL: No joint pain. NEUROPSYCHIATIC SYSTEMS: No suicidal ideation. No ideation. SKIN: Denies any rash or ulcer. CONSTITUTIONAL: No fever or chills. PHYSICAL EXAMINATION: GENERAL: Patient is awake, alert. VITAL SIGNS: Afebrile, pulse 80, breathing at 16, blood pressure 170/78. OBJECTIVE: See above. Awake, alert, in no acute distress. GENERAL APPEARANCE AND MENTAL STATUS: Fair. HEAD/NECK: Normocephalic. Atraumatic. EYES: EOMI. No deformity. EARS: Clear. No ulcers. NOSE: Intact. No lesions. MOUTH: Clear. No discharge. THROAT: Clear. No exudate. LUNGS: Clear. No crackles. CARDIAC: S1, S2. No rub. ABDOMEN: Benign. BS+. GENITALIA/RECTUM: Palm absent. BACK/EXTREMITIES: Edema 0+ Ulcer- NEUROLOGICAL: Very somnolent. SKIN: Rash- Bruise- LYMPHATICS: Edema- Ulcer- LABORATORY: Sodium 125, bicarbonate 30, potassium is 3. ASSESSMENT AND RECOMMENDATIONS: 1. Stage 6 chronic kidney disease with hypokalemia. We will dialyze the patient and give potassium supplementation. 2. Anemia, stable. 3. Medications based on glomerular filtration rate are appropriate. 4. Hyperglycemia management per primary team.
[2017-09-12] MEDS: Insulin Detemir 100 UNITS/ML 15 UNITS in Pre-Filled Syringe 1 EACH SC SCH (21:20)
[2017-09-12 22:29] LABS: Anion Gap 10 mmol/L (10-20); BUN (Urea Nitrogen) 11 mg/dL (8.4-25.7); Calc. Creatinine Clearance 40 mL/min (70-130); Calcium 7.5 mg/dL (7.8-10.44); Carbon Dioxide 27 mmol/L (22-29); Chloride 103 mmol/L (98-107); Estimated GFR-MDRD 39
[2017-09-13] MEDS: NS 0.9% w/ 20 MEQ KCL 1,000 ML IV SCH (01:59)
--- NOTE | 2017-09-13 07:51 | PRG ---
DATE OF SERVICE: Mr. Dumont did well overnight. He is off his insulin drip. PHYSICAL EXAMINATION: VITAL SIGNS: His vital signs have been stable. His heart rate is in the 80s. LUNGS: His lungs are clear. HEART: Regular rhythm. ABDOMEN: Soft. LABORATORY DATA: White count 11.1, hemoglobin 11.5, platelets 177. Sodium 136, potassium 3.9, chlor alisson 103, bicarbonate 27, BUN 11, creatinine 2.13. IMPRESSION: 1. Hyperosmolar nonketotic hyperglycemia, improved. 2. End-stage renal disease. PLAN: Continue supportive care.
[2017-09-13] MEDS: Tamsulosin HCl 0.4 MG CAP PO SCH (08:16)
[2017-09-13] MEDS: Heparin 5,000 UNITS/ML VIAL SC SCH ×2 (08:16→20:37)
[2017-09-13] MEDS: Famotidine/PF 20 mg/2ml Vial SLOW IVP SCH (08:17)
[2017-09-13] MEDS: Calcium Acetate 667 MG CAP PO SCH ×3 (08:17→17:40)
[2017-09-13] MEDS ORDERED: Heparin 10,000 UNITS/ 10 ML VIAL ONE (11:04)
--- NOTE | 2017-09-13 11:26 | PRG ---
DATE OF SERVICE: 09/13/2017 Homer Dumont has become uncooperative with blood draws and any care the nurses try to give him. PHYSICAL EXAMINATION: VITAL SIGNS: He is afebrile. Heart is in the 80s, blood pressure 158/87, respiratory rate in the te ens. GENERAL: He is in no distress. LUNGS: Lungs are clear. HEART: Regular rhythm. ABDOMEN: Abdomen is soft. He is stable to move out of the Critical Care Unit. I would think he would be actually stable to go home with the exception of the fact that he probably needs ongoing monitoring of blood glucoses. We will sign off.
[2017-09-13 12:39] LABS: #Eosinphils 1.5 thou/uL (0.0-0.7); #Lymphocytes 1.2 thou/uL (1.20-3.40); #Monocytes 0.4 thou/uL (0.11-0.59); #Neutrophils 5.5 thou/uL (1.40-6.50); %Basophils 0.4 % (0.0-1.0); %Eosinophils 17.8 % (0.0-10.0); %Lymphocytes 14.1 % (21.0-51.0); Hematocrit 39.5 % (42.0-52.0); Mean Platelet Volume 10.6 fL (7.4-10.4); Red Blood Cell (RBC) Count 4.71 mill/uL (4.70-6.10); White Blood Cell (WBC) Count 8.6 thou/uL (4.8-10.8)
[2017-09-13] MEDS: Dextrose 5 % And 0.9 % NaCl 1,000 ML IV SCH (13:44)
--- NOTE | 2017-09-13 15:30 | PRG ---
DATE OF SERVICE: 09/13/2017 SUBJECTIVE: This is a 57-year-old gentleman being seen for end-stage renal disease. The patient den ies any nausea, vomiting or chest pain. PHYSICAL EXAMINATION: GENERAL: Patient is awake, alert. VITAL SIGNS: Afebrile, pulse 80, breathing at 16, blood pressure 158/87. GENERAL APPEARANCE AND MENTAL STATUS: Fair. HEAD/NECK: Normocephalic. Atraumatic. EYES: EOMI. No deformity. EARS: Clear. No ulcers. NOSE: Intact. No lesions. MOUTH: Clear. No discharge. THROAT: Clear. No exudate. LUNGS: Clear. No crackles. CARDIAC: S1, S2. No rub. ABDOMEN: Benign. BS+. GENITALIA/RECTUM: Palm absent. BACK/EXTREMITIES: Edema 0+ Ulcer- NEUROLOGICAL: Alert and motor intact. SKIN: Rash- Bruise- LYMPHATICS: Edema- Ulcer- LABORATORY: Hemoglobin 9.5. ASSESSMENT AND PLAN: 1. Stage 6 chronic kidney disease. Continue hemodialysis. 2. Hypertension, stable. 3. Anemia, stable. 4. Medications based on glomerular filtration rate are appropriate.
--- NOTE | 2017-09-13 16:36 | PDOC.PN ---
- Subjective Encounter Start Date: 09/13/17 Encounter Start Time: 16:32 Subjective: Seen and examined feeling better - Objective Resuscitation Status: Resuscitation Status FULL:Full Resuscitation Vital Signs & Weight: Vital Signs (12 hours) Temp Pulse Resp 09/13/17 14:47 98.4 F 89 16 09/13/17 12:00 98.4 F 09/13/17 08:00 98.2 F 09/13/17 07:46 98.1 F 89 18 Weight Weight 150 lb 12.739 oz Most Recent Monitor Data Heart Rate from ECG 91 NIBP 180/123 NIBP BP-Mean 133 Respiration from ECG 12 SpO2 99 I&O: 09/12/17 09/13/17 09/14/17 06:59 06:59 06:59 Intake Total 1191.5 3508 700 Output Total 775 1000 530 Balance 416.5 2508 170 Result Diagrams: 09/13/17 12:10 09/12/17 21:58 Additional Labs: Accuchecks 09/13/17 09/13/17 09/13/17 11:31 09:06 07:28 POC Glucose 151 H 89 107 09/13/17 09/13/17 09/13/17 05:41 03:06 02:09 POC Glucose 109 78 77 09/13/17 09/13/17 09/12/17 01:25 00:13 23:18 POC Glucose 61 L 77 48 L* 09/12/17 09/12/17 09/12/17 21:18 19:50 18:42 POC Glucose 91 89 46 L* 09/12/17 09/12/17 17:09 16:41 POC Glucose 85 Less than 35 L* Phys Exam - Physical Examination Constitutional: NAD HEENT: PERRLA, moist MMs, sclera anicteric, TM's clear Neck: no nodes, no JVD, supple, full ROM Respiratory: no wheezing, no rales, no rhonchi Cardiovascular: RRR, no significant murmur, no rub Gastrointestinal: soft, non-tender, no distention, positive bowel sounds Musculoskeletal: no edema, pulses present Dx/Plan (1) Hyperosmolar non-ketotic state in patient with type 2 diabetes mellitus Code(s): E11.01 - TYPE 2 DIABETES MELLITUS WITH HYPEROSMOLARITY WITH COMA Status: Acute (2) Seizure Code(s): R56.9 - UNSPECIFIED CONVULSIONS Status: Acute (3) Hypokalemia Code(s): E87.6 - HYPOKALEMIA Status: Acute (4) ESRD (end stage renal disease) Code(s): N18.6 - END STAGE RENAL DISEASE Status: Acute (5) Diabetes mellitus type 2, uncontrolled Code(s): E11.65 - TYPE 2 DIABETES MELLITUS WITH HYPERGLYCEMIA Status: Acute (6) Anemia of renal disease Code(s): D63.1 - ANEMIA IN CHRONIC KIDNEY DISEASE Status: Chronic - Plan plan discussed w/ family, PT/OT, clinical social work aide, respiratory therapy D/c giacomora -: D/c 5% dextrose -: monitor blood sugar closely...if it remains stable d/c in the next 24hrs -: Resume home Bp meds * .
[2017-09-13] MEDS: hydrALAZINE 25 MG TAB PO SCH (20:37)
[2017-09-13] MEDS: NIFEdipine XL 90 MG TAB PO SCH (20:37)
[2017-09-13] MEDS: Carvedilol 25 MG TAB PO SCH (20:37)
[2017-09-13] MEDS: Insulin Detemir 100 UNITS/ML 15 UNITS in Pre-Filled Syringe 1 EACH SC SCH (20:38)
[2017-09-14] MEDS: NIFEdipine XL 90 MG TAB PO SCH (10:08)
[2017-09-14] MEDS: hydrALAZINE 25 MG TAB PO SCH ×2 (10:09→15:00)
[2017-09-14] MEDS: Carvedilol 25 MG TAB PO SCH (10:09)
[2017-09-14] MEDS: Famotidine/PF 20 mg/2ml Vial SLOW IVP SCH (10:09)
[2017-09-14] MEDS: Heparin 5,000 UNITS/ML VIAL SC SCH (10:09)
[2017-09-14] MEDS: Calcium Acetate 667 MG CAP PO SCH ×3 (10:09→17:27)
[2017-09-14] MEDS: Tamsulosin HCl 0.4 MG CAP PO SCH (10:11)
--- NOTE | 2017-09-14 10:13 | PRG ---
DATE OF SERVICE: 09/14/2017 SUBJECTIVE: This is a 57-year-old gentleman being seen for end-stage renal disease. Patient denies any nausea, vomiting or chest pain. PHYSICAL EXAMINATION: GENERAL: Patient is awake, alert. VITAL SIGNS: Afebrile, pulse 96, breathing at 16, blood pressure 156/98. HEAD/NECK: Normocephalic. Atraumatic. EYES: EOMI. No deformity. EARS: Clear. No ulcers. NOSE: Intact. No lesions. MOUTH: Clear. No discharge. THROAT: Clear. No exudate. LUNGS: Clear. No crackles. CARDIAC: S1, S2. No rub. ABDOMEN: Benign. BS+. GENITALIA/RECTUM: Palm absent. BACK/EXTREMITIES: Edema 0+ Ulcer- NEUROLOGICAL: Alert and motor intact. SKIN: Rash- Bruise- LYMPHATICS: Edema- Ulcer- ASSESSMENT AND RECOMMENDATIONS: 1. Stage 6 chronic kidney disease. We will plan dialysis per schedule. 2. Hypertension, stable. 3. Anemia, stable. 4. Medications based on glomerular filtration rate are appropriate.
[2017-09-14] MEDS ORDERED: Heparin 1,000 UNITS/ML VIAL ONE (11:11)
[2017-09-14 16:57] VITALS: BP 102/62; TEMP 97.4
== END 2017-09-14 18:36 | disposition home or self-care (01) | DRG 637 ==
LOC: ERS 18:37 → CCU 22:53 → T4-A 09-13 14:35
PROVIDERS: ADMIT Internal Medicine; ATTEND Internal Medicine
DX: E11.01 Type 2 diabetes mellitus with hyperosmolarity with coma (principal); N18.6 End stage renal disease; I13.2 Hypertensive heart and chronic kidney disease with heart failure and with stage 5 chronic kidney disease, or end stage renal disease; I24.8 Other forms of acute ischemic heart disease; I50.42 Chronic combined systolic (congestive) and diastolic (congestive) heart failure; F14.10 Cocaine abuse, uncomplicated; Z89.511 Acquired absence of right leg below knee; Z91.14 Patient's other noncompliance with medication regimen; R62.7 Adult failure to thrive; E11.65 Type 2 diabetes mellitus with hyperglycemia; D63.1 Anemia in chronic kidney disease; E87.6 Hypokalemia; E11.22 Type 2 diabetes mellitus with diabetic chronic kidney disease; Z99.2 Dependence on renal dialysis; Z79.4 Long term (current) use of insulin
CPT/HCPCS: 36415; 36416; 70450; 71010; 80053; 80306; 81003; 81015; 82330; 82553; 82803; 83605; 83735; 83880; 84146; 84443; 84484; 85025; 85610; 90935; 96365; 96374; 96375; 99292; 99406; A4216; G0257; J1200; J1644; J1815; J1953; J3480; J7050; J7070; S0028

== ENCOUNTER 2017-09-23 15:54 | Inpatient (IN) | payer OTHER ==
[2017-09-23] MEDS ORDERED: Acetaminophen 650 MG Suppository PR PRN (17:17)
[2017-09-23] MEDS ORDERED: Acetaminophen 325 MG TAB PO PRN (17:17)
[2017-09-23 17:28] LABS: Actual Bicarbonate (HCO3a) 15.9 mEq/L (22-26); Base Excess (BEa) -8.7 mEq/L (0 (+/-) 2.5); CO2 Tension 29.4 mmHg (35.0-45.0); Calcium, Ionized 1.1 mmol/L (1.12-1.30); Hematocrit-ABG 25.8 % (42.0-52.0); Hemoglobin (Hb) 8.8 g/dL (14.0-18.0); O2 Tension (PaO2) 88.3 mmHg (80.0-100.0); pH, Arterial 7.35 (7.35-7.45)
[2017-09-23] MEDS ORDERED: Dextrose 5% in Water 1,000 ML IV PRN (17:40)
[2017-09-23] MEDS ORDERED: cefTRIAXone\\ROCEPHIN 1 GM in Sodium Chloride 0.9% 100 ML IVPB SCH (17:45)
[2017-09-23 18:04] LABS: Analyzer IN Cardio ER; Puncture Site LRA
[2017-09-23] MEDS ORDERED: Norepinephrine 8 MG/0.9% NS 250 ML IVPB SCH (18:15)
--- NOTE | 2017-09-23 18:22 | HP ---
PRIMARY CARE PHYSICIAN: Dr. Radha Almanzar. CHIEF COMPLAINT: Hypothymia. HISTORY OF PRESENT ILLNESS: Mr. Dumont is a 57-year-old gentleman who was seen at [facility] following transfer from emergency room at [place] for hypothymia. He has a history of cocaine abuse. He is an end-stage renal disease patient, who reportedly missed his hemodialysis for the last 2 weeks. He was found unconscious in the cold weather inside a machine shop. He had an initial body temperature of 83 degrees Fahrenheit, which improved to 88 degrees after he received warm fluids and blankets. Mr. Dumont himself is unable to provide any history or review of systems. These were obtained by review of medical records as well as discussion with the emergency room physician. Please note that he was hospitalized at this facility from 09/12/2017 to 2016 for hyperosmolar diabetes and seizures. He also had a left upper extremity AV fistula placement as well as tunneled dialysis catheter placement on 08/10/2017. PAST MEDICAL HISTORY: Significant for hyperosmolar diabetes, end-stage renal disease on hemodialysis, congestive heart failure with systolic and diastolic dysfunction, prostatic hypertrophy, diabetes mellitus type 2, chronic anemia, hypertension. PAST SURGICAL HISTORY: Significant for cystoscopy and right below knee amputation and dialysis access procedures. FAMILY HISTORY: Positive for diabetes. SOCIAL HISTORY: The patient does not smoke tobacco or use alcohol. He uses cocaine. CODE STATUS: This could not be clarified. Both his mother, who is a primary medical power of physics and astronomy professor as well as his aunt, who is the secondary medical power of physics and astronomy professor were contacted. They could not determine his code status. They know that he is presumed to be FULL CODE at this time. ALLERGIES: No known drug allergies. CURRENT MEDICATIONS: These need to be clarified. PHYSICAL EXAMINATION: GENERAL: Mr. Dumont is sleepy, but arousable, moaning and groaning. He is unable to answer any questions. VITAL SIGNS: Temperature is 83.7 degrees Fahrenheit. Blood pressure is 78/42, pulse is 91, he is breathing at rate of 19 and saturating 100% on 2 liters of oxygen. EYES: No scleral icterus, he has bilateral conjunctival chemosis. NECK: Nontender, trachea midline, no cervical lymphadenopathy, no thyromegaly. RESPIRATORY: Accessory muscles of breathing could not be assessed. Chest wall movements are symmetric bilaterally. LUNGS: Reveals bibasilar crackles. CARDIOVASCULAR: S1 and S2 are heard, regular. Peripheral pulses are palpable in the upper extremities. No pericardial rub. There is no thrill over the left upper extremity dialysis access. Tunneled dialysis catheter is missing. NEUROLOGIC: Full neurologic examination was not possible secondary to the patient's noncooperation. Pupils are equal and reactive to light. There is no facial droop. Deep tendon reflexes are 2+. MUSCULOSKELETAL: He is status post right BKA. He has edema over the left leg. SKIN: He has an ablation over the left middle finger PIP joint. No rashes or subcutaneous nodules. He has edema of the penile shaft and foreskin. PSYCHIATRIC: Unable to assess mood, affect or orientation to person, place or time. LYMPHATIC: No cervical lymphadenopathy. LABORATORY DATA: Mr. Dumont's labs and investigations were reviewed. I reviewed his electrocardiogram, which has artifact, but appears to show accelerated junctional rhythm. On insurance agency owner, at this time, he has normal sinus rhythm. There are no ST changes to suggest an acute coronary syndrome. I also reviewed his chest x-ray, which shows interstitial edema. Laboratory investigations show a white count of 3100, hemoglobin 9.4, platelet count 109,000. INR 2.1. Sodium 134, potassium 5.0, creatinine 5.25, AST elevated at 54, normal ALT, normal alkaline phosphatase, normal total bilirubin. Urinalysis is positive for nitrate, blood, ketones, and urine toxicology screen that is positive for cocaine. ASSESSMENT AND PLAN: Mr. Dumont is a 57-year-old gentleman, who was seen at [facility] on 09/23/2017. His problem list includes: 1. Hypothermia: It is unclear how long he was hypothermic before he was found. He is currently on a Frank Hugger blanket. I also discussed his case with Nephrology Service. He will receive warm fluids during hemodialysis to increase his body temperature. He is being admitted to CCU. Emergency room physician has already consulted Pulmonology Service for help with further management. 2. Urinary tract infection: Suspected, based on urinalysis. We will start him on empiric ceftriaxone. 3. End-stage renal disease on dialysis. He has missed recent dialysis appointments. He does not have dialysis access at this time. General Surgery has been consulted for placement of dialysis catheter. Nephrology Service has been consulted for maintenance hemodialysis. 4. Diabetes mellitus. Start Accu-Cheks, insulin sliding scale. 5. Hypertension: The patient is currently hypotensive. Monitor vital signs and start vasopressors if indicated. 6. Cocaine abuse: Patient to be counseled when he is able to comprehend the discussion. 7. Congestive heart failure: The patient is currently in fluid overload. Reassess after dialysis. Many thanks for allowing me to participate in your patient's care. Please feel free to contact me with any questions or concerns. LEVEL OF RISK: High. LEVEL OF COMPLEXITY: High. MTDD
[2017-09-23] MEDS ORDERED: Norepinephrine 8 MG/0.9% NS 250 ML ONE (18:29)
--- NOTE | 2017-09-23 18:36 | OP ---
PREOPERATIVE DIAGNOSIS: Acute renal failure. SURGEON: Jamal Rodriguez M.D. PROCEDURE PERFORMED: Dialysis catheter placement. INDICATIONS: A 57-year-old male who lost access, is on hemodialysis, needs urgent dialysis for volum e overload. FINDINGS: Good backflow of venous blood. J-wire threaded easily. It was placed in the right femora l vein. DESCRIPTION OF PROCEDURE: On an emergency basis, his groin was prepped and draped in the usual fashi on. Local anesthesia infiltrated subcutaneously and deep. An introducer needle was inserted into th e right femoral vein with good backflow of venous blood. The J-wire threaded easily. The skin was i ncised with an 11 blade and a series of dilators used, then the catheter was inserted over the wire a nd the wire was removed. Each of the ports aspirated. Good backflow of venous blood, flushed with s alicia. The catheter was sutured in place with interrupted 3-0 nylon. A sterile bandage applied. Th e patient tolerated the procedure well and will now have dialysis.
[2017-09-23] MEDS: cefTRIAXone\\ROCEPHIN 1 GM, Syringe 0.4 ML in Sterile Water 9.6 ML SLOW IVP SCH (19:48)
[2017-09-23] MEDS ORDERED: Diltiazem HCl 125 MG, Admixture Fee 1 EACH in Sodium Chloride 0.9% 100 ML IVPB SCH (20:15)
[2017-09-23 22:04] LABS: ALT (SGPT) 10 U/L (8-55); AST (SGOT) 34 U/L (5-34); Albumin 1.1 g/dL (3.5-5.0); Alkaline Phosphatase 49 U/L (40-150); Bilirubin, Direct 0.1 mg/dL (0.1-0.3); Bilirubin, Total 0.2 mg/dL (0.2-1.2); Protein, Total 2.9 g/dL (6.0-8.3)
[2017-09-23] MEDS ORDERED: Albumin 25% 25 GM/100 ML BOT IVPB PRN (22:37)
[2017-09-23 22:41] LABS: HBSAg Index 0.47 S/CO (0-0.99); Hep B Surf Ag Non-Reactive S/CO (NonReactive)
--- NOTE | 2017-09-24 02:24 | CON ---
DATE OF CONSULTATION: 09/23/2017 Thirty minutes critical care time. REASON FOR CONSULTATION: Hypothermia. HISTORY OF PRESENT ILLNESS: Mr. Dumont is a 57-year-old male, who is well known to our service for the past consultations when he was in the CCU. He was admitted here 11 days ago with hyperglycemia. He was found at some type of machine shop today hypothermic with a core temperature in the 80s. He has been brought here and has been successfully resuscitated in the emergency room. He is encephalopathic and cannot give me anything in the way of history. REVIEW OF SYSTEMS: Cannot obtain secondary to patient's mental status changes. PAST MEDICAL HISTORY: 1. Diabetes mellitus type 2. 2. Hypertension. 3. Renal failure. 4. Smhvg-[id number]-[id number] amputation. 5. Multiple episodes of hypoglycemia. 6. Noncompliant with dialysis. PAST SURGICAL HISTORY: Right below-knee amputation. PSYCHIATRIC HISTORY: Unremarkable. SOCIAL HISTORY: Drinks socially, abuses cocaine, smokes cigarettes. ALLERGIES: None. CURRENT MEDICATIONS: Active list of medications could not be found at this time on his last hospital discharge from 09/14/2017. He was taken tamsulosin, detemir insulin, PhosLo, Coreg, Apresoline, Procardia-XL, Humulin regular insulin, iron sulfate. FAMILY MEDICAL HISTORY: Unremarkable for hypothermia. PHYSICAL EXAMINATION: VITAL SIGNS: Temperature is now 90 degrees Fahrenheit, O2 sat 100%, respiratory rate 17, pulse 90, blood pressure 84/60. GENERAL: He is moving around in bed, but will not follow commands. HEENT: He has edematous sclera bilaterally. Pupils react. Sclerae are anicteric. Oropharynx clear. NECK: No JVD. LUNGS: Fairly clear anteriorly. CARDIOVASCULAR: S1, S2, slightly tachycardic without murmur. ABDOMEN: Soft, protuberant. EXTREMITIES: He has a fzerp-[id number]-uzin amputation. SKIN: No rashes, no bruising, no jaundice. LABORATORY AND X-RAY FINDINGS: Chest x-ray shows pulmonary edema bilaterally, right greater than left. Heart size is enlarged. CT of the brain which was also reviewed by me, showed no evidence of abnormality. LABORATORY DATA: White blood cell count 3.1, hematocrit 29, platelet count 109. INR is 2.1. D-dimer 3.6, pH 7.35, pCO2 of 29, pO2 of 88. Sodium 131, potassium 5.0, chloride 103, CO2 18, BUN 52, creatinine 2.8, glucose 113. BNP 2473. Toxicology screen positive for cocaine. ASSESSMENT: 1. Hypothermia -- likely exogenous. There are extremely cold temperatures outside and he is probably in a place without heat. 2. Noncompliant with recent dialysis. 3. History of chronic renal failure. 4. Cocaine abuse. PLAN: 1. The patient does not require intubation at this time. He will receive dialysis be warmed slowly during dialysis. He may require Levophed for blood pressure support. He is having a Trialysis catheter inserted and Levophed can infuse through that. 2. Follow up labs tomorrow morning. 3. Ultimately, the patient will be seen again by Dr. Prado, who was seen him in the past. 35 min cc time MTDD
[2017-09-24] MEDS: Dextrose 50% Abboject 50 ML SYRINGE SLOW IVP PRN (04:43)
[2017-09-24] MEDS: Dextrose 10% in Water 1,000 ML IV SCH ×2 (05:12→21:54)
[2017-09-24 05:36] LABS: Anion Gap 18 mmol/L (10-20); BUN (Urea Nitrogen) 29 mg/dL (8.4-25.7); Calc. Creatinine Clearance 27 mL/min (70-130); Calcium 7.5 mg/dL (7.8-10.44); Carbon Dioxide 21 mmol/L (22-29); Chloride 105 mmol/L (98-107); Estimated GFR-MDRD 25; Potassium 3.7 mmol/L (3.5-5.1); Sodium 140 mmol/L (136-145)
[2017-09-24 05:41] LABS: Glucose 48 mg/dL (70-105)
[2017-09-24 05:47] LABS: Band 17 % (5-11); Eosinophils 1 % (0-10); Hemoglobin 8.6 g/dL (14.0-18.0); Lymphocytes 8 % (21-51); MDiff Complete? YES; Mean Corpuscular HGB CONC 32.1 g/dL (32.0-36.0); Mean Corpuscular Hemoglobin 26.2 pg (27.0-31.0); Mean Corpuscular Volume 81.6 fl (80.0-94.0); Mean Platelet Volume 9.4 fL (7.4-10.4); Monocytes 2 % (0-10); Neutrophil 72 % (42-75); PLT Morphology Comment Appears Adequate; Platelet Count 169 thou/uL (130-400); RBC Distribution Width 15.1 % (11.5-14.5); Red Blood Cell (RBC) Count 3.27 mill/uL (4.70-6.10); White Blood Cell (WBC) Count 7.3 thou/uL (4.8-10.8)
--- NOTE | 2017-09-24 07:08 | CON ---
DATE OF CONSULTATION: 09/23/2017 CONSULTING PHYSICIAN: Dr. Serrano. REASON FOR CONSULTATION: End-stage renal disease evaluation and care. REASON FOR ADMISSION: Hypothermia. HISTORY OF PRESENT ILLNESS: A 57-year-old male with history of substance abuse, hypertension , end-stage renal disease, congestive heart failure, came to the hospital with hypothermia. The earlene ent was found unconscious in the cold weather inside a machine shop and was found to be cocaine posit [place], his initial body temperature was 83 degrees of Fahrenheit. No fever or chills. No nausea, vomi ting, no chest pain reported, but patient is not able to give good history. He was hypothermic. The patient had a dialysis fistula placement and tunneled dialysis catheter whic h was apparently removed most likely by himself and his fistula is not working at this point. The pa jarred missed dialysis for more than a week. He was recently admitted to the hospital and after that he did not show up for dialysis despite repeated attempts to contact him. PAST MEDICAL HISTORY: Positive for diabetes, end-stage renal disease, congestive heart failure, CHF, BPH, type 2 diabetes, anemia, hypertension. PAST SURGICAL HISTORY: Cystoscopy and [id number] amputation. HOME MEDICATIONS: List not available. ALLERGIES: No known drug allergies. SOCIAL HISTORY: Substance abuse and smoking. Occasional alcohol use. FAMILY HISTORY: Positive for kidney disease. REVIEW OF SYSTEMS: Review of systems could not be obtained as patient is not responding. PHYSICAL EXAMINATION: GENERAL: This is a well-built male, seen in ICU. VITAL SIGNS: Temperature 96.4, pulse 142, respiratory rate 21, blood pressure 94/68. HEENT: Atraumatic, normocephalic. NECK: Supple, no masses. HEART: S1, S2, tachycardia. RESPIRATORY: Clear. GI: Abdomen is soft. MUSCULOSKELETAL: 1+ edema. DERMATOLOGIC: No skin rash. NEUROLOGIC: Not responding. LABORATORY DATA: Potassium is 5.0. BUN is 52, creatinine is 5.25, albumin is 2.0, and hemoglobin is 9.4. ASSESSMENT AND PLAN: 1. End-stage renal disease. We will have dialysis as tolerated. 2. Elevated BNP with fluid overload. We will have fluid removal as tolerated. Currently, he is hyp otensive. 3. Anemia of end-stage renal disease. 4. Hypotension. 5. We will attempt to do dialysis and remove fluid with dialysis as tolerated. Prognosis is guarded . Thank you for the consultation.
[2017-09-24] MEDS ORDERED: Enoxaparin Sodium 30 MG/0.3 ML SYRINGE SC SCH (09:00)
[2017-09-24] MEDS ORDERED: FLU VACC QS2017-18 36 mo. & older 0.5 ML SYRINGE IM ONE (09:00)
--- NOTE | 2017-09-24 12:34 | PRG ---
DATE OF SERVICE: 09/24/2017 SERVICE: Pulmonary Medicine. INTERVAL HISTORY: The patient is doing fine from a respiratory standpoint. He is breathing comforta maryan. He has no complaints of pain, nausea, vomiting or chest discomfort. He is eating food. He rem ains on a D10 drip, but he is now warm. He is perfectly awake and alert. He has no specific complai nts. PHYSICAL EXAMINATION: VITAL SIGNS: Afebrile. Temperature is currently 98.4 degrees, pulse 68, blood pressure 113/57, resp irations 18, saturation 97% on room air. GENERAL: Patient is awake, alert, in no apparent distress. LUNGS: Excellent air entry. There is no prolonged expiratory phase, wheezing, rhonchi or crackles. HEART: Normal rate, regular. ABDOMEN: Soft, nontender, and nondistended. Bowel sounds positive. MUSCULOSKELETAL: No cyanosis or clubbing. There is 1+ pitting in the bilateral lower extremities. The right lower extremity is surgically absent. Left upper extremity has a fistula. LABORATORY DATA: WBC 7.3, hemoglobin 8.6, platelets 169,000. A pH 7.35, pCO2 of 29, and pO2 88. Cr eatinine 3.10. Basic metabolic profile is otherwise unremarkable. Blood sugar is 50 and has improve d to 115. Hepatitis B surface antigen is nonreactive. ASSESSMENT: 1. Hypothermia, resolved. 2. Metabolic encephalopathy, resolved. 3. End-stage renal disease, noncompliant with dialysis recently. 4. Cocaine abuse. PLAN: The patient will remain in the ICU, eventually he is off the D10 drip. We will wean this away . The patient is currently eating. If he tolerates this, he can be transitioned to the telemetry un it because of his previous arrhythmias that were identified and are now resolved. Dr. Prado will ass [facility] in the morning.
--- NOTE | 2017-09-24 15:33 | PDOC.PN ---
- Subjective Encounter Start Date: 09/24/17 Encounter Start Time: 10:40 Pt seen for followup re: UTI. Awake and alert, denies chest pain or shortness of breath. Reports feeling hungry. - Objective MAR Reviewed: Yes Vital Signs & Weight: Vital Signs (12 hours) Temp Pulse Resp Pulse Ox 09/24/17 11:00 98.4 F 09/24/17 08:00 98.3 F 72 16 100 09/24/17 07:00 98.3 F Weight Weight 157 lb 13.616 oz Most Recent Monitor Data Heart Rate from ECG 67 NIBP 114/66 NIBP BP-Mean 82 Respiration from ECG 14 SpO2 97 I&O: 09/23/17 09/24/17 09/25/17 06:59 06:59 06:59 Intake Total 148 793 Output Total 30 55 Balance 118 738 Result Diagrams: 09/24/17 04:36 09/24/17 04:36 Additional Labs: Accuchecks 09/24/17 09/24/17 09/23/17 05:06 04:42 23:22 POC Glucose 115 H 50 L* 74 EKG Reviewed by me: Yes (Tele: NSR) Phys Exam - Physical Examination Constitutional: NAD HEENT: PERRLA, moist MMs, sclera anicteric, oral pharynx no lesions Neck: supple Respiratory: no wheezing, no rales, no rhonchi, clear to auscultation bilateral Cardiovascular: RRR, no rub R femoral dialysis catheter Gastrointestinal: soft, non-tender, no distention, positive bowel sounds s/p R BKA Neurological: moves all 4 limbs Psychiatric: normal affect Deviation from normal: Oriented to person and place, not to time Deviation from normal: Abrasion over L middle finger Dx/Plan (1) UTI (urinary tract infection) Status: Acute (2) ESRD on dialysis Code(s): N18.6 - END STAGE RENAL DISEASE; Z99.2 - DEPENDENCE ON RENAL DIALYSIS Status: Chronic (3) Diabetes mellitus type 2, uncontrolled Code(s): E11.65 - TYPE 2 DIABETES MELLITUS WITH HYPERGLYCEMIA Status: Chronic (4) Hx of BKA Code(s): Z89.519 - ACQUIRED ABSENCE OF UNSPECIFIED LEG BELOW KNEE Status: Chronic Qualifiers: Laterality: right Qualified Code(s): Z89.511 - Acquired absence of right leg below knee (5) Volume overload Code(s): E87.70 - FLUID OVERLOAD, UNSPECIFIED Status: Acute (6) BPH (benign prostatic hyperplasia) Code(s): N40.0 - BENIGN PROSTATIC HYPERPLASIA WITHOUT LOWER URINRY TRACT SYMP Status: Chronic (7) Chronic combined systolic and diastolic heart failure Code(s): I50.42 - CHRONIC COMBINED SYSTOLIC AND DIASTOLIC HRT FAIL Status: Chronic (8) Cocaine abuse Code(s): F14.10 - COCAINE ABUSE, UNCOMPLICATED Status: Chronic (9) Hypertension Code(s): I10 - ESSENTIAL (PRIMARY) HYPERTENSION Status: Chronic Qualifiers: Hypertension type: essential hypertension Qualified Code(s): I10 - Essential (primary) hypertension (10) Hypothermia Code(s): T68.XXXA - HYPOTHERMIA, INITIAL ENCOUNTER Status: Resolved - Plan continue antibiotics, PT/OT, out of bed/ambulate, DVT proph w/heparin * . Hypothermia has resolved. Pt received dialysis last night. Continue antibiotics as below, follow cultures. Monitor vital signs, titrate antihypertensives as needed. Continue accuchecks, insulin sliding scale. Transfer to telemetry floor. Review of Systems - Review of Systems Constitutional: negative: fever, chills, sweats, weakness, malaise Respiratory: negative: Cough, Dry, Shortness of Breath, Hemoptysis, SOB with Excertion, Pleuritic Pain, Sputum, Wheezing Cardiovascular: negative: chest pain, palpitations, orthopnea, paroxysmal nocturnal dyspnea, edema, light headedness Gastrointestinal: negative: Nausea, Vomiting, Abdominal Pain, Diarrhea, Constipation, Melena, Hematochezia Genitourinary: negative: Dysuria, Frequency, Incontinence, Hematuria, Retention - Medications/Allergies Allergies/Adverse Reactions: Allergies Allergy/AdvReac Type Severity Reaction Status Date / Time No Known Drug Allergies Allergy Verified 09/23/17 20:29 Medications: Current Medications Acetaminophen (Tylenol) 650 mg PO Q4H PRN PRN Reason: Headache/Fever or Pain Acetaminophen (Tylenol) 650 mg MS Q4H PRN PRN Reason: Headache/Fever or Pain Albumin Human (Albumin 25%) 25 gm IVPB .WITH DIALYSIS PRN PRN Reason: WITH DIALYSIS DIRECTED Stop: 09/25/17 22:38 Dextrose/Water (Dextrose 50%) 25 gm SLOW IVP PRN PRN PRN Reason: Hypoglycemia Last Admin: 09/24/17 04:43 Dose: 25 gm Glucagon (Glucagon) 1 mg IM PRN PRN PRN Reason: Hypoglycemia Heparin Sodium (Porcine) (Heparin) 5,000 units SC BID [facility] Ceftriaxone Sodium 1 gm/ (Syringe 0.4 ml/ Sterile Water) 10 mls @ 120 mls/hr SLOW IVP 1800 [facility] Last Admin: 09/23/17 19:48 Dose: Not Given Dextrose/Water (D5w) 1,000 mls @ 0 mls/hr IV .Q0M PRN; As Directed PRN Reason: Hypoglycemia Dextrose/Water (Dextrose 10% In Water) 1,000 mls @ 50 mls/hr IV .Q20H [facility] Last Admin: 09/24/17 05:12 Dose: 1,000 mls Insulin Human Lispro (Humalog) 0 units SC .MILD SLIDING SCALE PRN PRN Reason: Mild Correctional Scale Tamsulosin HCl (Flomax) 0.4 mg PO HS [facility]
[2017-09-24] MEDS: HumaLOG 300 UNITS/3 ML VIAL SC PRN (16:23)
--- NOTE | 2017-09-24 16:41 | PRG ---
DATE OF SERVICE: 09/24/2017 SUBJECTIVE: Patient was seen and examined at bedside and overnight events noted. Patient denies any shortness of breath or chest pain or palpitation. No history of nausea or vomiting or diarrhea or f ever or chills or cramps. OBJECTIVE: GENERAL: This is a well-built white male in no apparent distress. VITAL SIGNS: Temperature 98.4, pulse 71, respiratory rate 18, blood pressure 141/71. HEENT: Atraumatic, normocephalic. Oral mucosa is moist. NECK: Supple. CARDIOVASCULAR: S1, S2 heard. Rate and rhythm regular. RESPIRATORY: Clear to auscultation. GASTROINTESTINAL: Abdomen is soft. MUSCULOSKELETAL: No tenderness. No edema. DERMATOLOGIC: No skin rash. NEUROLOGIC: Alert and awake and oriented x3. No focal neurologic deficits. Moving all the extremiti es. PSYCHIATRIC: Mood and affect normal. DATE OF SERVICE placed Dr. Kebede. LABORATORY DATA: Potassium 3.7, BUN is 29, creatinine is 3.1. ASSESSMENT AND PLAN: 1. End-stage renal disease on hemodialysis. Plan is to have dialysis as tolerated. Dialysis today tolerated well. 2. Elevated BNP with fluid overload. 3. Edema. 4. Hypertension, better. Plan is to monitor renal function closely and we will check a 24-hour urine for creatinine clearance. Will follow.
[2017-09-24] MEDS: cefTRIAXone\\ROCEPHIN 1 GM, Syringe 0.4 ML in Sterile Water 9.6 ML SLOW IVP SCH (17:32)
[2017-09-24] MEDS: Tamsulosin HCl 0.4 MG CAP PO SCH (20:32)
[2017-09-24] MEDS: Heparin 5,000 UNITS/ML VIAL SC SCH (20:32)
[2017-09-25 04:50] LABS: #Eosinphils 1.9 thou/uL (0.0-0.7); #Lymphocytes 1.5 thou/uL (1.20-3.40); #Monocytes 0.2 thou/uL (0.11-0.59); %Basophils 0.2 % (0.0-1.0); %Eosinophils 19.8 % (0.0-10.0); %Lymphocytes 15.3 % (21.0-51.0); %Monocytes 2.2 % (0.0-10.0); %Neutrophils 62.5 % (42.0-75.0); Mean Corpuscular HGB CONC 32.2 g/dL (32.0-36.0); Mean Corpuscular Hemoglobin 26.6 pg (27.0-31.0); Mean Corpuscular Volume 82.7 fl (80.0-94.0); Mean Platelet Volume 9.7 fL (7.4-10.4); Platelet Count 148 thou/uL (130-400); Red Blood Cell (RBC) Count 3.02 mill/uL (4.70-6.10); White Blood Cell (WBC) Count 9.5 thou/uL (4.8-10.8)
[2017-09-25 04:57] LABS: Anion Gap 12 mmol/L (10-20); BUN (Urea Nitrogen) 34 mg/dL (8.4-25.7); Calc. Creatinine Clearance 24 mL/min (70-130); Calcium 7.6 mg/dL (7.8-10.44); Carbon Dioxide 27 mmol/L (22-29); Chloride 102 mmol/L (98-107); Estimated GFR-MDRD 22; Glucose 60 mg/dL (70-105); Potassium 4.2 mmol/L (3.5-5.1); Sodium 137 mmol/L (136-145)
[2017-09-25] MEDS: Heparin 5,000 UNITS/ML VIAL SC SCH ×2 (08:19→21:33)
[2017-09-25 12:33] VITALS: BMI 21.4
[2017-09-25] MEDS: cefTRIAXone\\ROCEPHIN 1 GM, Syringe 0.4 ML in Sterile Water 9.6 ML SLOW IVP SCH (18:27)
--- NOTE | 2017-09-25 18:31 | PRG ---
DATE OF SERVICE: 09/25/2017 SUBJECTIVE: Patient was seen and examined at bedside and overnight events noted. Patient denies any shortness of breath or chest pain or palpitation. No history of nausea or vomiting or diarrhea or f ever or chills or cramps. OBJECTIVE: GENERAL: This is a well-built male in no apparent distress. VITAL SIGNS: Temperature 99.6, pulse 78, respiratory rate 18, blood pressure 177/78. HEENT: Atraumatic, normocephalic. Oral mucosa is moist. NECK: Supple. CARDIOVASCULAR: S1, S2 heard. Rate and rhythm regular. RESPIRATORY: Clear to auscultation. GASTROINTESTINAL: Abdomen is soft. MUSCULOSKELETAL: No tenderness. No edema. DERMATOLOGIC: No skin rash. NEUROLOGIC: Alert and awake and oriented x3. No focal neurologic deficits. Moving all the extremiti es. PSYCHIATRIC: Mood and affect normal. LABORATORY DATA: Potassium is 4.2, BUN is 34, and creatinine is 3.5. ASSESSMENT AND PLAN: 1. End-stage renal disease. Plan is to continue on dialysis as tolerated. 2. Hyperkalemia, better. 3. Edema, controlled. 4. Anemia of end-stage renal disease. We will continue on Epogen with dialysis as tolerated. 5. Hypertension. Titrate blood pressure medication. 6. Elevated BNP. Plan is to monitor renal function closely. The patient does not have much urine output. We will hav e 24 hour urine for creatinine clearance.
--- NOTE | 2017-09-25 18:43 | PDOC.PN ---
- Subjective Encounter Start Date: 09/25/17 Encounter Start Time: 18:41 Pt seen for followup re: Clostridium difficile infection. Reports diarrhea. No fevers or chills. No nausea or vomiting. - Objective MAR Reviewed: Yes Vital Signs & Weight: Vital Signs (12 hours) Temp Pulse Resp Pulse Ox 09/25/17 16:00 96.6 F L 09/25/17 15:00 96.7 F L 09/25/17 13:00 95.8 F L 09/25/17 08:00 98.8 F 71 20 97 Weight Admit Weight 158 lb Weight 158 lb 4.67 oz Most Recent Monitor Data Heart Rate from ECG 70 NIBP 177/79 NIBP BP-Mean 118 Respiration from ECG 0 SpO2 100 I&O: 09/24/17 09/25/17 09/26/17 06:59 06:59 06:59 Intake Total 148 1847 616 Output Total 30 185 95 Balance 118 1662 521 Result Diagrams: 09/25/17 04:18 09/25/17 04:18 Additional Labs: Accuchecks 09/25/17 09/25/17 09/25/17 16:47 11:00 08:23 POC Glucose 186 H 152 H 142 H 09/25/17 09/24/17 09/24/17 06:13 21:52 20:34 POC Glucose 86 68 L 69 L 09/24/17 09/23/17 11:07 20:48 POC Glucose 110 78 EKG Reviewed by me: Yes (Tele: NSR) Phys Exam - Physical Examination Constitutional: NAD HEENT: moist MMs Neck: supple Respiratory: clear to auscultation bilateral Cardiovascular: RRR Gastrointestinal: soft Neurological: moves all 4 limbs Psychiatric: normal affect Dx/Plan (1) Clostridium difficile infection Code(s): B96.89 - OTH BACTERIAL AGENTS THE CAUSE OF DISEASES CLASSD ELSWHR Status: Acute (2) UTI (urinary tract infection) Status: Acute (3) ESRD on dialysis Code(s): N18.6 - END STAGE RENAL DISEASE; Z99.2 - DEPENDENCE ON RENAL DIALYSIS Status: Chronic (4) Diabetes mellitus type 2, uncontrolled Code(s): E11.65 - TYPE 2 DIABETES MELLITUS WITH HYPERGLYCEMIA Status: Chronic (5) Hx of BKA Code(s): Z89.519 - ACQUIRED ABSENCE OF UNSPECIFIED LEG BELOW KNEE Status: Chronic Qualifiers: Laterality: right Qualified Code(s): Z89.511 - Acquired absence of right leg below knee (6) Volume overload Code(s): E87.70 - FLUID OVERLOAD, UNSPECIFIED Status: Acute (7) BPH (benign prostatic hyperplasia) Code(s): N40.0 - BENIGN PROSTATIC HYPERPLASIA WITHOUT LOWER URINRY TRACT SYMP Status: Chronic (8) Chronic combined systolic and diastolic heart failure Code(s): I50.42 - CHRONIC COMBINED SYSTOLIC AND DIASTOLIC HRT FAIL Status: Chronic (9) Cocaine abuse Code(s): F14.10 - COCAINE ABUSE, UNCOMPLICATED Status: Chronic (10) Hypertension Code(s): I10 - ESSENTIAL (PRIMARY) HYPERTENSION Status: Chronic Qualifiers: Hypertension type: essential hypertension Qualified Code(s): I10 - Essential (primary) hypertension (11) Hypothermia Code(s): T68.XXXA - HYPOTHERMIA, INITIAL ENCOUNTER Status: Resolved - Plan out of bed/ambulate, DVT proph w/heparin * . Start oral vancomycin. Pt has received three doses of ceftriaxone, stop ceftriaxone and observe. Blood and urine cultures were reportedly not sent from ER in [place]. Dialysis per nephrology service, surgical service has reportedly cleared AV fistula for use. Resume home insulin when pt is eating well and sugars are high. Continue accuchecks and insulin sliding scale for now. Review of Systems - Review of Systems Respiratory: negative: Cough, Dry, Shortness of Breath, Hemoptysis, SOB with Excertion, Pleuritic Pain, Sputum, Wheezing Cardiovascular: negative: chest pain, palpitations, orthopnea, paroxysmal nocturnal dyspnea, edema, light headedness - Medications/Allergies Allergies/Adverse Reactions: Allergies Allergy/AdvReac Type Severity Reaction Status Date / Time No Known Drug Allergies Allergy Verified 09/23/17 20:29 Medications: Current Medications Acetaminophen (Tylenol) 650 mg PO Q4H PRN PRN Reason: Headache/Fever or Pain Acetaminophen (Tylenol) 650 mg RI Q4H PRN PRN Reason: Headache/Fever or Pain Albumin Human (Albumin 25%) 25 gm IVPB .WITH DIALYSIS PRN PRN Reason: WITH DIALYSIS DIRECTED Stop: 09/25/17 22:38 Calcium Acetate (Phoslo) 667 mg PO TID[facility] Carvedilol (Coreg) 25 mg PO BID [facility] Dextrose/Water (Dextrose 50%) 25 gm SLOW IVP PRN PRN PRN Reason: Hypoglycemia Last Admin: 09/24/17 04:43 Dose: 25 gm Epoetin Nikhil (Procrit) 10,000 units IVP MoWeFr@0900 [facility] Glucagon (Glucagon) 1 mg IM PRN PRN PRN Reason: Hypoglycemia Heparin Sodium (Porcine) (Heparin) 5,000 units SC BID [facility] Last Admin: 09/25/17 08:19 Dose: 5,000 units Hydralazine HCl (Apresoline) 50 mg PO TID [facility] Dextrose/Water (D5w) 1,000 mls @ 0 mls/hr IV .Q0M PRN; As Directed PRN Reason: Hypoglycemia Dextrose/Water (Dextrose 10% In Water) 1,000 mls @ 50 mls/hr IV .Q20H [facility] Last Admin: 09/24/17 21:54 Dose: 1,000 mls Insulin Human Lispro (Humalog) 0 units SC .MILD SLIDING SCALE PRN PRN Reason: Mild Correctional Scale Last Admin: 09/24/17 16:23 Dose: 2 unit Nifedipine (Procardia Xl) 90 mg PO BID [facility] Tamsulosin HCl (Flomax) 0.4 mg PO HS [facility] Last Admin: 09/24/17 20:32 Dose: 0.4 mg Tamsulosin HCl (Flomax) 0.4 mg PO DAILY [facility] Vancomycin HCl (First Vancomycin) 125 mg PO QID [facility]
[2017-09-25] MEDS: NIFEdipine XL 90 MG TAB PO SCH (21:33)
[2017-09-25] MEDS: Carvedilol 25 MG TAB PO SCH (21:33)
[2017-09-25] MEDS: Tamsulosin HCl 0.4 MG CAP PO SCH (21:33)
[2017-09-25] MEDS: hydrALAZINE 25 MG TAB PO SCH (21:33)
--- NOTE | 2017-09-25 21:33 | PRG ---
DATE OF SERVICE: 09/25/2017 HISTORY OF PRESENT ILLNESS: Homer Dumont is a 57-year-old male with end-stage renal disease. The re cords of this admission and old records dating back in the 2014 that have been reviewed. He is only recently discharged from the hospital. He was hospitalized with hyperosmolar nonketotic hyperglycemic event earlier in August. He has a h istory of medical noncompliance. He readily admits this admission that he missed multiple dialysis s essions. It has been explained by me that skipping dialysis may lead to his demise. Apparently, he was found down unresponsive at home. He does not recall coming to the hospital. He was outdoors, apparently was hypothermic when he got h ere. He says he is back to his baseline. He feels fine. PHYSICAL EXAMINATION: GENERAL: He is afebrile. Blood pressure 139/98, earlier today 177/79 this afternoon; heart rate is in the 70s. HEENT: His pupils were equal. Sclerae is anicteric. NECK: Supple. LUNGS: Clear anteriorly. HEART: Regular rhythm. ABDOMEN: Soft and nontender. EXTREMITIES: There is no changes to his amputation stump. LABORATORY DATA: White count 9.5, hemoglobin 8.0, platelets 148,000. Sodium 137, potassium 4.2, chloride 102, bicarbo veto 27, BUN 34, creatinine 3.58. IMPRESSION: Hypothermia after being found down outdoors with core temperature in 80s. He was encephalopathic whe n he arrived, but this has resolved. He has apparently been noncompliant with dialysis. It is again explained to him that his life will be short if he continues to be noncompliant with dialysis. From purely medical standpoint, he appears stable to move out of the Critical Care Unit and actually is probably stable enough to be discharged back to home. We followed with his dialysis.
[2017-09-25] MEDS: Vancomycin HCl 25 MG/ML Oral PO SCH (21:57)
[2017-09-25] MEDS: HumaLOG 300 UNITS/3 ML VIAL SC PRN (22:04)
[2017-09-25] MEDS: Dextrose 10% in Water 1,000 ML IV SCH (22:35)
[2017-09-26] MEDS: Dextrose 50% Abboject 50 ML SYRINGE SLOW IVP PRN ×2 (04:39→07:40)
[2017-09-26] MEDS ORDERED: Vancomycin HCl 1 GM in Premix Bag 1 BAG IVPB SCH ×2 (05:30→09:15)
[2017-09-26 05:37] LABS: Anion Gap 11 mmol/L (10-20); BUN (Urea Nitrogen) 40 mg/dL (8.4-25.7); Calc. Creatinine Clearance 21 mL/min (70-130); Calcium 7.6 mg/dL (7.8-10.44); Carbon Dioxide 23 mmol/L (22-29); Chloride 107 mmol/L (98-107); Estimated GFR-MDRD 19; Glucose 88 mg/dL (70-105); Potassium 3.6 mmol/L (3.5-5.1); Sodium 137 mmol/L (136-145)
[2017-09-26 06:19] LABS: Eosinophils 24 % (0-10); Hemoglobin 7.4 g/dL (14.0-18.0); Lymphocytes 14 % (21-51); MDiff Complete? YES; Mean Corpuscular HGB CONC 32.2 g/dL (32.0-36.0); Mean Corpuscular Hemoglobin 26.9 pg (27.0-31.0); Mean Corpuscular Volume 83.5 fl (80.0-94.0); Mean Platelet Volume 8.8 fL (7.4-10.4); Monocytes 4 % (0-10); Neutrophil 58 % (42-75); PLT Morphology Comment Appears Decreased; Platelet Count 121 thou/uL (130-400); Red Blood Cell (RBC) Count 2.74 mill/uL (4.70-6.10); White Blood Cell (WBC) Count 7.2 thou/uL (4.8-10.8)
[2017-09-26] MEDS ORDERED: Norepinephrine 8 MG/0.9% NS 250 ML ONE (07:46)
[2017-09-26] MEDS ORDERED: Atropine Sulfate 1 mg/10 ml Syringe ONE (07:47)
[2017-09-26] MEDS ORDERED: EPINEPHrine 1 MG/ML AMP ONE (07:48)
--- NOTE | 2017-09-26 08:10 | PRG ---
DATE OF SERVICE: 09/26/2017 SUBJECTIVE: Continues to have labile blood glucoses. He is back on D10. He received D50 early this morning after a change in mental status and had blood glucose in the 20s. OBJECTIVE: VITAL SIGNS: Remained stable, 143/79, heart rate is 76. Review on the monitor, he is in sinus rhyth m. Respiratory rate is 18, oximetry is 97%. LUNGS: Clear. HEART: Regular rhythm. S1 and S2 are normal. ABDOMEN: Soft and nontender. EXTREMITIES: His lower extremity is unchanged. LABORATORY DATA: No new lab today other than glucoses. IMPRESSION: 1. Status post hypothermia after being found down. 2. Encephalopathy that is resolving. 3. Labile blood glucoses. This is consistent with past admissions as well. 4. One positive blood culture with gram-positive cocci. It is unclear whether or not this is a cont aminant. So, these will be repeated and he will receive 1 dose of vancomycin. 5. Clostridium difficile antigen positive. His Rocephin has been discontinued. I suspect this is secondary to broad-spectrum antimicrobials he receives every time he comes in. I do not think he can go to a medical bed with his wild swings in b lood glucose. I also think this is a negative prognostic indicator for survival through 2018. His l ack of cooperation, his ongoing drug use, probable lack of glycogen stores in his liver make his mort ality in the next 6 months extremely high in my opinion.
[2017-09-26] MEDS ORDERED: Albumin 25% 25 GM/100 ML BOT IVPB SCH (09:00)
[2017-09-26] MEDS ORDERED: Tamsulosin HCl 0.4 MG CAP PO SCH (09:00)
[2017-09-26] MEDS ORDERED: Vancomycin HCl 500 MG in Sodium Chloride 0.9% 100 ML IVPB SCH (09:15)
[2017-09-26] MEDS ORDERED: HOLD VANCOMYCIN FOR LEVEL >20 FS SCH (09:15)
[2017-09-26] MEDS ORDERED: Vancomycin HCl 750 MG in Sodium Chloride 0.9% 250 ML 250 ML IVPB SCH (09:15)
[2017-09-26] MEDS ORDERED: Vancomycin HCl 1.25 GM in Sodium Chloride 0.9% 250 ML 250 ML IVPB SCH (09:15)
[2017-09-26] MEDS ORDERED: Vancomycin Sliding Scale 1 EACH FS ONE (09:15)
--- NOTE | 2017-09-26 10:05 | PDOC.PN ---
- Subjective Encounter Start Date: 09/26/17 Encounter Start Time: 10:03 Subjective: no new complaints - Objective MAR Reviewed: Yes Vital Signs & Weight: Vital Signs (12 hours) Temp 09/26/17 04:00 96.8 F L 09/26/17 00:00 97.9 F Weight Admit Weight 158 lb Weight 156 lb 15.506 oz Most Recent Monitor Data Heart Rate from ECG 51 NIBP 103/48 NIBP BP-Mean 64 Respiration from ECG 21 SpO2 94 I&O: 09/25/17 09/26/17 09/27/17 06:59 06:59 06:59 Intake Total 1847 856 Output Total 185 125 Balance 1662 731 Result Diagrams: 09/26/17 05:00 09/26/17 05:00 Additional Labs: Accuchecks 09/26/17 09/26/17 09/26/17 09:10 08:04 07:49 POC Glucose 87 128 H 164 H 09/26/17 09/26/17 09/25/17 04:57 04:36 22:04 POC Glucose 94 Less than 35 L* 249 H 09/25/17 09/25/17 09/24/17 16:47 11:00 11:07 POC Glucose 186 H 152 H 110 09/23/17 20:48 POC Glucose 78 Phys Exam - Physical Examination Constitutional: NAD HEENT: PERRLA, moist MMs, sclera anicteric Neck: no JVD, supple, full ROM Respiratory: no wheezing, no rhonchi sinus bradycardia Gastrointestinal: soft, non-tender, positive bowel sounds Musculoskeletal: no edema rt bka Neurological: non-focal, moves all 4 limbs Psychiatric: normal affect Skin: no rash Dx/Plan (1) Clostridium difficile infection Code(s): B96.89 - OTH BACTERIAL AGENTS THE CAUSE OF DISEASES CLASSD ELSWHR Status: Acute (2) ESRD on dialysis Code(s): N18.6 - END STAGE RENAL DISEASE; Z99.2 - DEPENDENCE ON RENAL DIALYSIS Status: Chronic (3) Anemia of renal disease Code(s): D63.1 - ANEMIA IN CHRONIC KIDNEY DISEASE Status: Chronic (4) BPH (benign prostatic hyperplasia) Code(s): N40.0 - BENIGN PROSTATIC HYPERPLASIA WITHOUT LOWER URINRY TRACT SYMP Status: Chronic (5) Chronic combined systolic and diastolic heart failure Code(s): I50.42 - CHRONIC COMBINED SYSTOLIC AND DIASTOLIC HRT FAIL Status: Chronic (6) Cocaine abuse Code(s): F14.10 - COCAINE ABUSE, UNCOMPLICATED Status: Chronic (7) FTT (failure to thrive) in adult Status: Chronic (8) Hx of BKA Code(s): Z89.519 - ACQUIRED ABSENCE OF UNSPECIFIED LEG BELOW KNEE Status: Chronic Qualifiers: Laterality: right Qualified Code(s): Z89.511 - Acquired absence of right leg below knee (9) Hypertension Code(s): I10 - ESSENTIAL (PRIMARY) HYPERTENSION Status: Chronic Qualifiers: Hypertension type: essential hypertension Qualified Code(s): I10 - Essential (primary) hypertension - Plan * .
[2017-09-26] MEDS: Carvedilol 25 MG TAB PO SCH (10:09)
[2017-09-26] MEDS: hydrALAZINE 25 MG TAB PO SCH (10:09)
[2017-09-26] MEDS: Vancomycin HCl 25 MG/ML Oral PO SCH ×4 (10:10→22:22)
[2017-09-26] MEDS: Heparin 5,000 UNITS/ML VIAL SC SCH ×2 (10:12→22:22)
[2017-09-26] MEDS: EPINEPHrine 4 MG in Dextrose 5% in Water 250 ML IVP SCH ×2 (10:35→16:37)
[2017-09-26] MEDS: Epoetin (ESRD) 10,000 UNITS/ML VIAL IVP SCH (10:36)
[2017-09-26] MEDS: NIFEdipine XL 90 MG TAB PO SCH (10:37)
[2017-09-26] MEDS: Calcium Acetate 667 MG CAP PO SCH ×3 (10:54→19:03)
[2017-09-26] MEDS: diphenhydrAMINE 50 MG/ML VIAL IVP PRN ×3 (12:32→22:22)
[2017-09-26 12:37] LABS: Anion Gap 13 mmol/L (10-20); BUN (Urea Nitrogen) 42 mg/dL (8.4-25.7); Calc. Creatinine Clearance 20 mL/min (70-130); Calcium 7.6 mg/dL (7.8-10.44); Carbon Dioxide 22 mmol/L (22-29); Chloride 106 mmol/L (98-107); Estimated GFR-MDRD 18; Glucose 104 mg/dL (70-105); Potassium 4.5 mmol/L (3.5-5.1); Sodium 136 mmol/L (136-145)
[2017-09-26 12:46] LABS: CKMB 22.9 ng/mL (0-6.6); Troponin I 2.207 ng/mL (< 0.028)
[2017-09-26 14:19] LABS: Actual Bicarbonate (HCO3a) 18.6 mEq/L (22-26); Base Excess (BEa) -6.1 mEq/L (0 (+/-) 2.5); CO2 Tension 32.8 mmHg (35.0-45.0); Calcium, Ionized 1.1 mmol/L (1.12-1.30); Hemoglobin (Hb) 7.4 g/dL (14.0-18.0); O2 Tension (PaO2) 61.5 mmHg (80.0-100.0); pH, Arterial 7.37 (7.35-7.45)
[2017-09-26 14:21] LABS: Puncture Site RR
[2017-09-26] MEDS ORDERED: Sodium Chloride 0.9% 1,000 ML IV SCH (14:30)
--- NOTE | 2017-09-26 14:54 | PRG ---
DATE OF SERVICE: 09/26/2017 SUBJECTIVE: Homer Dumont is required pressors today as progressed. Blood culture has been identifie d and is growing Enterococcus 1/2. Source of this is unclear. Vancomycin was ordered earlier today. He will be given with dialysis and adjusted based on troughs. He has been given albumin and fluid bolus and is receiving another fluid bolus. Palliative care has been consulted. I do not feel he would do well if he requires critical care inte rventions or ventilatory support. Blood gas today shows a pH 7.37. His hemoglobin is less than 8 grams and he is hypotensive so we will give him 2 units packed cells. His prognosis is poor.
[2017-09-26 15:51] LABS: Body Surface Area 1.86
[2017-09-26 16:10] LABS: Creatinine, Urine 96.12 mg/dL (63-166)
[2017-09-26] MEDS: Dextrose 10% in Water 1,000 ML IV SCH (17:06)
[2017-09-26] MEDS: Albumin 25% 25 GM/100 ML BOT IVPB SCH (19:02)
--- NOTE | 2017-09-26 23:06 | CON ---
DATE OF CONSULTATION: 09/26/2017 HISTORY OF PRESENT ILLNESS: Mr. Homer Dumont is a 57-year-old black male with history of end-stage renal disease and cocaine abuse. On toxicology every time that he is admitted into the hospital, he has cocaine in his urine. He presented to [facility] having missed hemodialysis for the last 2 weeks. He was found unconscious in cold weather with initial body temperature of 83 degrees. In the hospital, he was given warm fluids as well as wrapped him with warm blankets and temperature increased to 88. The patient cannot give me any adequate history of chest pain or shortness of breath and is fairly combative at times during the exam. He has been noted to have abnormal cardiac enzymes. PAST MEDICAL HISTORY: Significant for diabetes, end-stage renal disease on hemodialysis which he apparently has missed for the last 2 weeks, seizures. OPERATIONS: Include right ylenu-ueu-nclw amputation as well as AV access surgeries. HOME MEDICATIONS: Include carvedilol 25 b.i.d., hydralazine 50 t.i.d., insulin 100 units/mL 50 units at bedtime, nifedipine 90 b.i.d., Flomax 0.4 daily and PhosLo 667 mg t.i.d. ALLERGIES: None. SOCIAL HISTORY: He does not smoke. He abuses cocaine. REVIEW OF SYSTEMS: Unobtainable. PHYSICAL EXAMINATION: VITAL SIGNS: Blood pressure 99/53, pulse of 46, at times junctional rhythm and at times atrial fibrillation looking at the rhythm strips. LUNGS: Chest reveals expiratory wheezing. CARDIOVASCULAR: S1 and S2 are normal, without any S3, S4 or murmurs. ABDOMEN: Normal bowel sounds. EXTREMITIES: Revealed 1+ left leg edema. There is a right iases-bei-skiw amputation. NEUROLOGIC: The patient is confused, will not answer questions and is combative at times whenever attempt is made to examine him. LABORATORY AND IMAGING DATA: EKG revealed atrial fibrillation with fast ventricular response. Also, another EKG reveals junctional bradycardia with nonspecific ST segment changes. He is growing Enterococcus faecalis in 1 of 2 blood cultures. Hemoglobin 7.4, hematocrit 22.8, white count 7200 and platelets 121,000. A pH 7.37, pCO2 of 32.8 and pO2 of 61.5. Sodium 136, potassium 4.5, chloride 106, carbon dioxide 22, BUN 42, creatinine 4.23, creatine kinase 343, CK-MB 22.9 and troponin I 2.207. Echocardiogram revealed ejection fraction of 45% to 50% with moderate mitral regurgitation, mild to moderate tricuspid regurgitation and small pericardial effusion. IMPRESSION: 1. Severe hypothermia. 2. Cocaine abuse. 3. End-stage renal disease, apparently missed hemodialysis for 2 weeks. 4. Elevated cardiac enzymes, non-ST segment elevation myocardial infarction versus demand ischemia with severe hypothermia. 5. Hypertension. 6. Diabetes. 7. Mild left ventricular dysfunction. PLAN: Mr. Dumont may certainly have had a non-STEMI. At the present time though with question of Enterococcus sepsis and his current mental status, he is not a candidate for any further cardiac evaluation at this time. We will continue to follow him and ultimately if those problems improve, consideration could be given to cardiac catheterization; however, at the present time with his combative nature and inability to converse, I do not feel that he should go to the cardiac stores lab[facility]. JEREMY
--- NOTE | 2017-09-26 23:48 | PRG ---
DATE OF SERVICE: 09/26/2017 SUBJECTIVE: Patient was seen and examined at bedside and overnight events noted. Patient denies any shortness of breath or chest pain or palpitation. No history of nausea or vomitin g or diarrhea or fever or chills or cramps. OBJECTIVE: GENERAL: This is a well-built male, in no apparent distress. VITAL SIGNS: Temperature 97.0, pulse 54, respiratory rate 18, blood pressure 144/73. HEENT: Atraumatic, normocephalic. Oral mucosa is moist NECK: Supple. CARDIOVASCULAR: S1 and S2 heard. Rate and rhythm regular. RESPIRATORY: Clear to auscultation. GASTROINTESTINAL: Abdomen is soft. MUSCULOSKELETAL: No tenderness. No edema. DERMATOLOGIC: No skin rash. NEUROLOGIC: Alert and awake and oriented X3, No focal neurologic deficits. Moving all the extremitie s. PSYCHIATRIC: Mood and affect normal. LABORATORY DATA: Potassium is 4.5, BUN 42, creatinine is 4.23. ASSESSMENT AND PLAN: 1. End-stage renal disease, no acute need for dialysis. We will continue to monitor. 2. Edema . 3. Hyperkalemia, much better. 4. Anemia. 5. Hypertension. 6. Non-ST elevation myocardial infarction, follow with Cardiology. Overall, prognosis is poor. Plan is to continue on dialysis as tolerated.
[2017-09-27 05:16] LABS: #Eosinphils 1.2 thou/uL (0.0-0.7); #Lymphocytes 1.4 thou/uL (1.20-3.40); #Monocytes 0.3 thou/uL (0.11-0.59); #Neutrophils 4.8 thou/uL (1.40-6.50); %Basophils 0.5 % (0.0-1.0); %Eosinophils 15.2 % (0.0-10.0); %Lymphocytes 18.4 % (21.0-51.0); %Monocytes 4.2 % (0.0-10.0); %Neutrophils 61.7 % (42.0-75.0); Hemoglobin 8.4 g/dL (14.0-18.0); Mean Corpuscular HGB CONC 32.6 g/dL (32.0-36.0); Mean Corpuscular Hemoglobin 26.9 pg (27.0-31.0); Mean Corpuscular Volume 82.7 fl (80.0-94.0); Platelet Count 112 thou/uL (130-400); RBC Distribution Width 15.1 % (11.5-14.5); Red Blood Cell (RBC) Count 3.11 mill/uL (4.70-6.10); White Blood Cell (WBC) Count 7.7 thou/uL (4.8-10.8)
[2017-09-27 05:19] LABS: Anion Gap 15 mmol/L (10-20); BUN (Urea Nitrogen) 47 mg/dL (8.4-25.7); Calc. Creatinine Clearance 20 mL/min (70-130); Calcium 7.8 mg/dL (7.8-10.44); Carbon Dioxide 19 mmol/L (22-29); Chloride 106 mmol/L (98-107); Estimated GFR-MDRD 18; Glucose 104 mg/dL (70-105); Potassium 4.7 mmol/L (3.5-5.1); Sodium 135 mmol/L (136-145)
[2017-09-27] MEDS: Albumin 25% 25 GM/100 ML BOT IVPB SCH ×5 (05:56→23:52)
[2017-09-27] MEDS: Vancomycin HCl 25 MG/ML Oral PO SCH ×4 (08:43→21:41)
[2017-09-27] MEDS: Calcium Acetate 667 MG CAP PO SCH ×3 (08:43→18:26)
[2017-09-27] MEDS: Heparin 5,000 UNITS/ML VIAL SC SCH ×2 (08:44→21:41)
--- NOTE | 2017-09-27 14:49 | PDOC.PN ---
- Subjective Encounter Start Date: 09/27/17 Encounter Start Time: 14:47 Subjective: sister at bedside. -: pt agitated and wants the restriants off. -: wants to go home - Objective Resuscitation Status: Resuscitation Status DNR:Do Not Resuscitate MAR Reviewed: Yes Vital Signs & Weight: Vital Signs (12 hours) Temp Pulse Resp BP Pulse Ox 09/27/17 12:15 93.8 F L 71 20 174/92 H 100 09/27/17 08:43 93.6 F L 69 20 100 09/27/17 08:17 93.6 F L 69 20 167/102 H 100 09/27/17 05:05 97.2 F L 89 22 H 97 09/27/17 04:00 97.2 F L Weight Admit Weight 158 lb Weight 157 lb 10.088 oz Most Recent Monitor Data Heart Rate from ECG 68 NIBP 169/93 NIBP BP-Mean 109 Respiration from ECG 20 SpO2 99 I&O: 09/26/17 09/27/17 09/28/17 06:59 06:59 06:59 Intake Total 856 2683 Output Total 125 146 Balance 731 2537 Result Diagrams: 09/27/17 04:37 09/27/17 04:37 Additional Labs: Accuchecks 09/27/17 09/27/17 09/27/17 11:46 04:14 00:23 POC Glucose 90 118 H 142 H 09/26/17 09/26/17 09/26/17 20:32 16:42 14:03 POC Glucose 189 H 173 H 138 H Microbiology 09/25/17 11:32 Stool C. difficile GDH Antigen & Toxins - Final 09/25/17 11:32 Stool Clostridium difficile Toxin A&B PCR - Final 09/23/17 23:54 Venous blood - Left Arm Blood Culture - Preliminary Enterococcus faecalis 09/23/17 00:07 Venous blood - Left Arm Blood Culture - Preliminary Specimen has been received and culture in progress. No Growth to date. 09/26/17 05:21 Venous blood - Right Hand Blood Culture - Preliminary Specimen has been received and culture in progress. No Growth to date. 09/26/17 05:21 Venous blood - Left Hand Blood Culture - Preliminary Specimen has been received and culture in progress. No Growth to date. Laboratory Tests 09/23/17 09/23/17 09/26/17 11:59 11:59 12:00 Creatine Kinase 839 H Troponin I 0.026 2.207 H* 09/26/17 12:00 Creatine Kinase 343 H Troponin I Phys Exam - Physical Examination Constitutional: NAD HEENT: PERRLA, moist MMs, sclera anicteric, oral pharynx no lesions Neck: no nodes, no JVD, supple, full ROM Respiratory: no wheezing, no rales Cardiovascular: RRR, no significant murmur Gastrointestinal: soft, non-tender, no distention, positive bowel sounds Musculoskeletal: no edema, pulses present Neurological: non-focal, normal sensation, moves all 4 limbs Skin: no rash Dx/Plan (1) Clostridium difficile infection Code(s): B96.89 - OTH BACTERIAL AGENTS THE CAUSE OF DISEASES CLASSD ELSWHR Status: Acute (2) NSTEMI (non-ST elevated myocardial infarction) Code(s): I21.4 - NON-ST ELEVATION (NSTEMI) MYOCARDIAL INFARCTION Status: Acute Comment: medical management. (3) ESRD on dialysis Code(s): N18.6 - END STAGE RENAL DISEASE; Z99.2 - DEPENDENCE ON RENAL DIALYSIS Status: Chronic (4) Hypothermia Code(s): T68.XXXA - HYPOTHERMIA, INITIAL ENCOUNTER Status: Resolved (5) Anemia of renal disease Code(s): D63.1 - ANEMIA IN CHRONIC KIDNEY DISEASE Status: Chronic (6) BPH (benign prostatic hyperplasia) Code(s): N40.0 - BENIGN PROSTATIC HYPERPLASIA WITHOUT LOWER URINRY TRACT SYMP Status: Chronic (7) Chronic combined systolic and diastolic heart failure Code(s): I50.42 - CHRONIC COMBINED SYSTOLIC AND DIASTOLIC HRT FAIL Status: Chronic (8) Cocaine abuse Code(s): F14.10 - COCAINE ABUSE, UNCOMPLICATED Status: Chronic (9) Diabetes mellitus type 2, uncontrolled Code(s): E11.65 - TYPE 2 DIABETES MELLITUS WITH HYPERGLYCEMIA Status: Chronic (10) Diabetic neuropathy Code(s): E11.40 - TYPE 2 DIABETES MELLITUS WITH DIABETIC NEUROPATHY, UNSP Status: Chronic Qualifiers: Diabetes mellitus type: type 2 (11) FTT (failure to thrive) in adult Status: Chronic (12) Hx of BKA Code(s): Z89.519 - ACQUIRED ABSENCE OF UNSPECIFIED LEG BELOW KNEE Status: Chronic Qualifiers: Laterality: right Qualified Code(s): Z89.511 - Acquired absence of right leg below knee (13) Hypertension Code(s): I10 - ESSENTIAL (PRIMARY) HYPERTENSION Status: Chronic Qualifiers: Hypertension type: essential hypertension Qualified Code(s): I10 - Essential (primary) hypertension (14) Moderate protein-calorie malnutrition Code(s): E44.0 - MODERATE PROTEIN-CALORIE MALNUTRITION Status: Chronic - Plan plan discussed w/ family, DVT proph w/SCDs cont PO vancomycin.DC restraints. sitter provided. -: clinically stable but not a safe DC. -: pt highly non compliant w HD.family trying to arrange NH -: DNR.HD per nephrology. -: Likley DC home w PO Vancomycin if no decision.clinically stable and better * . Review of Systems - Review of Systems Other: can not be reliably obtained due to agitation.pt doesn't answer - Medications/Allergies Allergies/Adverse Reactions: Allergies Allergy/AdvReac Type Severity Reaction Status Date / Time No Known Drug Allergies Allergy Verified 09/23/17 20:29 Medications: Current Medications Acetaminophen (Tylenol) 650 mg PO Q4H PRN PRN Reason: Headache/Fever or Pain Acetaminophen (Tylenol) 650 mg [place] Q4H PRN PRN Reason: Headache/Fever or Pain Albumin Human (Albumin 25%) 25 gm IVPB Q6HR [facility] Stop: 09/28/17 18:01 Last Admin: 09/27/17 11:10 Dose: Not Given Calcium Acetate (Phoslo) 667 mg PO TID-[facility] Last Admin: 09/27/17 13:32 Dose: 667 mg [facility] Dextrose/Water (Dextrose 50%) 25 gm SLOW IVP PRN PRN PRN Reason: Hypoglycemia Last Admin: 09/26/17 07:40 Dose: 25 gm Diphenhydramine HCl (Benadryl) 25 mg IVP Q4H PRN PRN Reason: Itching & Insomnia Last Admin: 09/26/17 22:22 Dose: 25 mg Epoetin Nikhil (Procrit) 10,000 units IVP MoWeFr@0900 [facility] Last Admin: 09/26/17 10:36 Dose: 10,000 units Glucagon (Glucagon) 1 mg IM PRN PRN PRN Reason: Hypoglycemia Heparin Sodium (Porcine) (Heparin) 5,000 units SC BID [facility] Last Admin: 09/27/17 08:44 Dose: 5,000 units Dextrose/Water (D5w) 1,000 mls @ 0 mls/hr IV .Q0M PRN; As Directed PRN Reason: Hypoglycemia Dextrose/Water (Dextrose 10% In Water) 1,000 mls @ 50 mls/hr IV .Q20H [facility] Last Admin: 09/26/17 17:06 Dose: 1,000 mls Vancomycin HCl 1.25 gm/ Sodium (Chloride) 250 mls @ 166.667 mls/hr IVPB WILLCALL ANGE Vancomycin HCl 1 gm/ Device 200 mls @ 200 mls/hr IVPB WILLCALL ANGE Vancomycin HCl 750 mg/ Sodium (Chloride) 250 mls @ 250 mls/hr IVPB WILLCALL ANGE Vancomycin HCl 500 mg/ Sodium (Chloride) 100 mls @ 100 mls/hr IVPB WILLCALL ANGE Epinephrine 4 mg/ Dextrose/ (Water) 254 mls @ 0 mls/hr IVP INF [facility]; Titrate PRN Reason: Protocol Last Admin: 09/26/17 16:37 Dose: 254 mls Insulin Human Lispro (Humalog) 0 units SC .MILD SLIDING SCALE PRN PRN Reason: Mild Correctional Scale Last Admin: 09/25/17 22:04 Dose: 3 unit Miscellaneous Medication (Pharmacy To Dose) 0 each IVPB PRN PRN PRN Reason: VANC SLIDING SCLAE Hold Vancomycin For (Level >20) 0 each FS .AT DIALYSIS [facility] Vancomycin HCl (First Vancomycin) 125 mg PO QID [facility] Last Admin: 09/27/17 13:32 Dose: 125 mg
[2017-09-27] MEDS: Carvedilol 6.25 MG TAB PO SCH (18:26)
[2017-09-27] MEDS: Dextrose 10% in Water 1,000 ML IV SCH (18:26)
[2017-09-27] MEDS: NIFEdipine XL 60 MG TAB PO SCH (21:40)
--- NOTE | 2017-09-27 22:49 | PRG ---
DATE OF SERVICE: 09/27/2017 SUBJECTIVE: The patient slightly confused today. Unable to give few history. OBJECTIVE: GENERAL: This is a well-built male, slightly confused, but agitated on restraints. VITAL SIGNS: Temperature 98.3, pulse 73, respiratory rate 18, blood pressure 174/92. HEENT: Atraumatic, normocephalic. Oral mucosa is moist NECK: Supple. CARDIOVASCULAR: S1 and S2 heard. Rate and rhythm regular. RESPIRATORY: Clear to auscultation. GASTROINTESTINAL: Abdomen is soft. MUSCULOSKELETAL: No tenderness. No edema. DERMATOLOGIC: No skin rash. NEUROLOGIC: Alert and awake and oriented X3, No focal neurologic deficits. Moving all the extremitie s. PSYCHIATRIC: Mood and affect normal. LABORATORY DATA: Potassium is 4.7, BUN 47, creatinine is 4.2. ASSESSMENT AND PLAN: 1. End-stage renal disease, on chronic hemodialysis Sunday, Sunday, and Sunday. Plan is to have dialysis tomorrow since he is not making urine. 2. Edema. We will follow, limit fluid intake and salt intake. 3. Hyperkalemia, better. 4. Anemia. 5. Hypertension. 6. Non-ST elevation. Follow with Cardiology. 7. Overall very poor prognosis. We will have dialysis as tolerated. Plan is to try dialysis tomorrow if tolerated. We will follow. Adjust blood pressure medications. We will add nifedipine as tolerated.
[2017-09-28] MEDS: Albumin 25% 25 GM/100 ML BOT IVPB SCH ×3 (05:20→18:31)
[2017-09-28 06:43] LABS: #Eosinphils 1.1 thou/uL (0.0-0.7); #Lymphocytes 1.3 thou/uL (1.20-3.40); #Monocytes 0.3 thou/uL (0.11-0.59); #Neutrophils 4.5 thou/uL (1.40-6.50); %Basophils 0.2 % (0.0-1.0); %Eosinophils 15.7 % (0.0-10.0); %Lymphocytes 17.3 % (21.0-51.0); %Monocytes 4.3 % (0.0-10.0); %Neutrophils 62.5 % (42.0-75.0); Hemoglobin 8.3 g/dL (14.0-18.0); Mean Corpuscular HGB CONC 32.8 g/dL (32.0-36.0); Mean Corpuscular Volume 82.1 fl (80.0-94.0); Mean Platelet Volume 10.2 fL (7.4-10.4); Platelet Count 119 thou/uL (130-400); RBC Distribution Width 15.2 % (11.5-14.5); Red Blood Cell (RBC) Count 3.08 mill/uL (4.70-6.10); White Blood Cell (WBC) Count 7.2 thou/uL (4.8-10.8)
[2017-09-28 06:55] LABS: Anion Gap 14 mmol/L (10-20); BUN (Urea Nitrogen) 48 mg/dL (8.4-25.7); Calc. Creatinine Clearance 18 mL/min (70-130); Calcium 8.2 mg/dL (7.8-10.44); Carbon Dioxide 17 mmol/L (22-29); Chloride 106 mmol/L (98-107); Estimated GFR-MDRD 17; Glucose 118 mg/dL (70-105); Potassium 4.1 mmol/L (3.5-5.1); Sodium 133 mmol/L (136-145)
[2017-09-28] MEDS: Heparin 5,000 UNITS/ML VIAL SC SCH ×2 (08:58→21:07)
[2017-09-28] MEDS: Carvedilol 6.25 MG TAB PO SCH ×2 (08:58→18:31)
[2017-09-28] MEDS: Calcium Acetate 667 MG CAP PO SCH ×3 (08:59→18:31)
--- NOTE | 2017-09-28 09:24 | PRG ---
DATE OF SERVICE: 09/28/2017 SUBJECTIVE: This is a 57-year-old gentleman being seen for end-stage renal disease. The patient den ies any nausea, vomiting or chest pain. PHYSICAL EXAMINATION: GENERAL: Patient is awake, alert. VITAL SIGNS: Afebrile, pulse 76, breathing at 16, blood pressure 176/93. HEAD/NECK: Normocephalic. Atraumatic. EYES: EOMI. No deformity. EARS: Clear. No ulcers. NOSE: Intact. No lesions. MOUTH: Clear. No discharge. THROAT: Clear. No exudate. LUNGS: Clear. No crackles. CARDIAC: S1, S2. No rub. ABDOMEN: Benign. BS+. GENITALIA/RECTUM: Palm absent. BACK/EXTREMITIES: Edema 0+ Ulcer- NEUROLOGICAL: Alert and motor intact. SKIN: Rash- Bruise- LYMPHATICS: Edema- Ulcer- LABORATORY DATA: Hemoglobin 8.3, creatinine 4.4. ASSESSMENT AND PLAN: 1. Stage 6 chronic kidney disease, continue hemodialysis. 2. Hypertension, stable. 3. Anemia, stable. 4. Medications based on glomerular filtration rate are appropriate.
[2017-09-28] MEDS: Vancomycin HCl 25 MG/ML Oral PO SCH ×4 (10:12→21:07)
[2017-09-28] MEDS: Epoetin (ESRD) 10,000 UNITS/ML VIAL IVP SCH (10:12)
[2017-09-28] MEDS ORDERED: Lidocaine-Prilocaine 2.5% Cream 5 GM TUBE TOP PRN (12:07)
[2017-09-28] MEDS: Dextrose 10% in Water 1,000 ML IV SCH ×2 (12:22→22:16)
[2017-09-28 13:23] LABS: Vancomycin, Random 10.6 ug/mL (See Comment)
--- NOTE | 2017-09-28 15:21 | PDOC.PN ---
- Subjective Encounter Start Date: 09/28/17 Encounter Start Time: 15:19 Subjective: feels good. no new complaint - Objective Resuscitation Status: Resuscitation Status DNR:Do Not Resuscitate MAR Reviewed: Yes Vital Signs & Weight: Vital Signs (12 hours) Temp Pulse Resp BP BP Pulse Ox 09/28/17 11:05 97.5 F L 74 18 151/87 H 94 L 09/28/17 08:58 176/93 H 09/28/17 07:31 97.6 F 76 16 176/93 H 97 09/28/17 04:08 98 F 88 19 181/96 H 98 Weight Admit Weight 158 lb Weight 148 lb 11.2 oz Most Recent Monitor Data Heart Rate from ECG 68 NIBP 169/93 NIBP BP-Mean 109 Respiration from ECG 20 SpO2 99 I&O: 09/27/17 09/28/17 09/29/17 06:59 06:59 06:59 Intake Total 2683 2175 Output Total 146 500 Balance 2537 1675 Result Diagrams: 09/28/17 05:18 09/28/17 05:18 Additional Labs: Accuchecks 09/28/17 09/28/17 09/27/17 11:28 05:52 20:03 POC Glucose 149 H 125 H 136 H 09/27/17 16:09 POC Glucose 101 Phys Exam - Physical Examination Constitutional: NAD HEENT: PERRLA, moist MMs, sclera anicteric, oral pharynx no lesions Neck: no nodes, no JVD, supple, full ROM Respiratory: no wheezing, no rales, no rhonchi, clear to auscultation bilateral Cardiovascular: RRR, no significant murmur, no rub, gallop Gastrointestinal: soft, non-tender, no distention, positive bowel sounds Musculoskeletal: no edema, pulses present Neurological: non-focal, normal sensation, moves all 4 limbs Psychiatric: normal affect, A&O x 3 Skin: no rash Dx/Plan (1) Clostridium difficile infection Code(s): B96.89 - OTH BACTERIAL AGENTS THE CAUSE OF DISEASES CLASSD ELSWHR Status: Acute (2) NSTEMI (non-ST elevated myocardial infarction) Code(s): I21.4 - NON-ST ELEVATION (NSTEMI) MYOCARDIAL INFARCTION Status: Acute Comment: medical management. (3) ESRD on dialysis Code(s): N18.6 - END STAGE RENAL DISEASE; Z99.2 - DEPENDENCE ON RENAL DIALYSIS Status: Chronic (4) Hypothermia Code(s): T68.XXXA - HYPOTHERMIA, INITIAL ENCOUNTER Status: Resolved (5) Anemia of renal disease Code(s): D63.1 - ANEMIA IN CHRONIC KIDNEY DISEASE Status: Chronic (6) BPH (benign prostatic hyperplasia) Code(s): N40.0 - BENIGN PROSTATIC HYPERPLASIA WITHOUT LOWER URINRY TRACT SYMP Status: Chronic (7) Chronic combined systolic and diastolic heart failure Code(s): I50.42 - CHRONIC COMBINED SYSTOLIC AND DIASTOLIC HRT FAIL Status: Chronic (8) Cocaine abuse Code(s): F14.10 - COCAINE ABUSE, UNCOMPLICATED Status: Chronic (9) Diabetes mellitus type 2, uncontrolled Code(s): E11.65 - TYPE 2 DIABETES MELLITUS WITH HYPERGLYCEMIA Status: Chronic (10) Diabetic neuropathy Code(s): E11.40 - TYPE 2 DIABETES MELLITUS WITH DIABETIC NEUROPATHY, UNSP Status: Chronic Qualifiers: Diabetes mellitus type: type 2 (11) FTT (failure to thrive) in adult Status: Chronic (12) Hx of BKA Code(s): Z89.519 - ACQUIRED ABSENCE OF UNSPECIFIED LEG BELOW KNEE Status: Chronic Qualifiers: Laterality: right Qualified Code(s): Z89.511 - Acquired absence of right leg below knee (13) Hypertension Code(s): I10 - ESSENTIAL (PRIMARY) HYPERTENSION Status: Chronic Qualifiers: Hypertension type: essential hypertension Qualified Code(s): I10 - Essential (primary) hypertension (14) Moderate protein-calorie malnutrition Code(s): E44.0 - MODERATE PROTEIN-CALORIE MALNUTRITION Status: Chronic - Plan DVT proph w/SCDs cont PO vancomycin.hemodynamically stable. -: Ok to Dc if cleared by Nephrology -: question of safe DC as pt very non compliant -: am labs.HD per nephrology * . Review of Systems - Review of Systems Constitutional: negative: fever, chills, sweats, weakness, malaise, other Respiratory: negative: Cough, Dry, Shortness of Breath, Hemoptysis, SOB with Excertion, Pleuritic Pain, Sputum, Wheezing Cardiovascular: negative: chest pain, palpitations, orthopnea, paroxysmal nocturnal dyspnea, edema, light headedness, other Gastrointestinal: negative: Nausea, Vomiting, Abdominal Pain, Diarrhea, Constipation, Melena, Hematochezia, Other Genitourinary: negative: Dysuria, Frequency, Incontinence, Hematuria, Retention , Other Musculoskeletal: negative: Neck Pain, Shoulder Pain, Arm Pain, Back Pain, Hand Pain, Leg Pain, Foot Pain, Other Neurological: negative: Weakness, Numbness, Incoordination, Change in Speech, Confusion, Seizures, Other - Medications/Allergies Allergies/Adverse Reactions: Allergies Allergy/AdvReac Type Severity Reaction Status Date / Time No Known Drug Allergies Allergy Verified 09/23/17 20:29 Medications: Current Medications Acetaminophen (Tylenol) 650 mg PO Q4H PRN PRN Reason: Headache/Fever or Pain Acetaminophen (Tylenol) 650 mg CA Q4H PRN PRN Reason: Headache/Fever or Pain Albumin Human (Albumin 25%) 25 gm IVPB Q6HR [facility] Stop: 09/28/17 18:01 Last Admin: 09/28/17 13:11 Dose: 25 gm Calcium Acetate (Phoslo) 667 mg PO TID-[facility] Last Admin: 09/28/17 13:11 Dose: 667 mg Carvedilol (Coreg) 6.25 mg PO BID-[facility] Last Admin: 09/28/17 08:58 Dose: 6.25 mg Dextrose/Water (Dextrose 50%) 25 gm SLOW IVP PRN PRN PRN Reason: Hypoglycemia Last Admin: 09/26/17 07:40 Dose: 25 gm Diphenhydramine HCl (Benadryl) 25 mg IVP Q4H PRN PRN Reason: Itching & Insomnia Last Admin: 09/26/17 22:22 Dose: 25 mg Epoetin Nikhil (Procrit) 10,000 units IVP MoWeFr@0900 [facility] Last Admin: 09/28/17 10:12 Dose: 10,000 units Glucagon (Glucagon) 1 mg IM PRN PRN PRN Reason: Hypoglycemia Heparin Sodium (Porcine) (Heparin) 5,000 units SC BID [facility] Last Admin: 09/28/17 08:58 Dose: Not Given Dextrose/Water (D5w) 1,000 mls @ 0 mls/hr IV .Q0M PRN; As Directed PRN Reason: Hypoglycemia Dextrose/Water (Dextrose 10% In Water) 1,000 mls @ 50 mls/hr IV .Q20H [facility] Last Admin: 09/28/17 12:22 Dose: Not Given Vancomycin HCl 1.25 gm/ Sodium (Chloride) 250 mls @ 166.667 mls/hr IVPB WILLCALL ANGE Vancomycin HCl 1 gm/ Device 200 mls @ 200 mls/hr IVPB WILLCALL ANGE Vancomycin HCl 750 mg/ Sodium (Chloride) 250 mls @ 250 mls/hr IVPB WILLCALL ANGE Vancomycin HCl 500 mg/ Sodium (Chloride) 100 mls @ 100 mls/hr IVPB WILLCALL ANGE Epinephrine 4 mg/ Dextrose/ (Water) 254 mls @ 0 mls/hr IVP INF [facility]; Titrate PRN Reason: Protocol Last Admin: 09/26/17 16:37 Dose: 254 mls Insulin Human Lispro (Humalog) 0 units SC .MILD SLIDING SCALE PRN PRN Reason: Mild Correctional Scale Last Admin: 09/25/17 22:04 Dose: 3 unit Lidocaine/Prilocaine (Emla 2.5%) 0 gm TOP ASDIR PRN PRN Reason: USE PRIOR TO EA DIALYSIS Last Admin: 09/28/17 13:22 Dose: 1 applic Miscellaneous Medication (Pharmacy To Dose) 0 each IVPB PRN PRN PRN Reason: VANC SLIDING SCLAE Nifedipine (Procardia Xl) 60 mg PO 2100 [facility] Last Admin: 09/27/17 21:40 Dose: 60 mg Hold Vancomycin For (Level >20) 0 each FS .AT DIALYSIS [facility] Vancomycin HCl (First Vancomycin) 125 mg PO QID [facility] Last Admin: 09/28/17 13:11 Dose: 125 mg
--- NOTE | 2017-09-28 16:23 | PQF ---
CLINICAL DOCUMENTATION IMPROVEMENT CLARIFICATION FORM: ICD-10 Updated PLEASE DO AN ADDENDUM TO THE PROGRESS NOTE WITH ANY DOCUMENTATION UPDATES OR ADDITIONS AND CARRY THROUGH TO DC SUMMARY. THANK YOU. DATE: 09/28/17 ATTN: Dr. Fitzpatrick Please exercise your independent, professional judgment in responding to the clarification form. Clinical indicators are provided on the bottom of this form for your review Please check appropriate box(s): [ ] Sepsis due to: (Pna, UTI, gangrenous gall bladder, etc.) [ ] Severe sepsis with acute organ dysfunction of: (Examples: respiratory failure, encephalopathy, acute kidney failure, other) [ X ] Localized infection without sepsis [ ] Other diagnosis [ ] Unable to determine In addition, please specify: Present on Admission (POA): [ ] Yes [ ] No [ ] Unable to determine For continuity of documentation, please document condition throughout progress notes and discharge summary. Thank You. CLINICAL INDICATORS - SIGNS / SYMPTOMS / LABS H&P: TEMP. IS 83.7, BP 78/42, PULSE 91, HYPOTHERMIA. UTI, SUSPECTED. PULMONOLOGY CONSULT: HYPOTHERMIC WITH A CORE TEMPERATURE IN THE 80s HE IS ENCEPHALOPATHIC CARDIOLOGY CONSULT 09/26: LAB: HE IS GROWING ENTEROCOCCUS FAECALIS IN 1 OF 2 BLOOD CULTURES. PLAN: MR. SALAZAR MAY CERTAINLY HAVE HAD A NON- STEMI. AT THE PRESENT TIME THOUGH W/ QUESTION OF ENTEROCOCCUS SEPSIS & HIS CURRENT MENTAL STATUS, HE IS NOT A CANDIDATE FOR ANY FURTHER CARDIAC EVALUATION AT THIS TIME. RISKS: H&P: HX SIGNIFICANT FOR HYPEROSMOLAR DM, ESRD ON HD, CHF. DM 2, HTN. ASSESSMENT: HYPOTHERMIA. TREATMENT: CPOE 1/2: ROCEPHIN 1 GM IV. DC'D 09/25. CPOE 09/26: VANCOMYCIN HCL 1 GM 09/26/17 CLINICAL INDICATION: BACTEREMIA. Thank you, Holly (This form is maintained as a part of the permanent medical record) 2014 [employer]. All Rights Reserved Holly Deluca RN, BSN [email or web address] Office: [phone] [facility]
[2017-09-28] MEDS: NIFEdipine XL 60 MG TAB PO SCH (21:07)
[2017-09-28] MEDS: HumaLOG 300 UNITS/3 ML VIAL SC PRN (22:17)
[2017-09-29 06:40] LABS: Anion Gap 13 mmol/L (10-20); BUN (Urea Nitrogen) 27 mg/dL (8.4-25.7); Calc. Creatinine Clearance 24 mL/min (70-130); Calcium 8.4 mg/dL (7.8-10.44); Carbon Dioxide 24 mmol/L (22-29); Chloride 104 mmol/L (98-107); Estimated GFR-MDRD 24; Glucose 157 mg/dL (70-105); Magnesium 2.1 mg/dL (1.6-2.6); Phosphorus 2.9 mg/dL (2.3-4.7); Potassium 3.6 mmol/L (3.5-5.1); Sodium 137 mmol/L (136-145)
[2017-09-29] MEDS: HumaLOG 300 UNITS/3 ML VIAL SC PRN (07:12)
[2017-09-29] MEDS: Calcium Acetate 667 MG CAP PO SCH ×2 (10:10→12:55)
[2017-09-29] MEDS: Carvedilol 6.25 MG TAB PO SCH (10:10)
[2017-09-29] MEDS: Heparin 5,000 UNITS/ML VIAL SC SCH (10:10)
[2017-09-29] MEDS: Vancomycin HCl 25 MG/ML Oral PO SCH ×2 (11:05→12:55)
--- NOTE | 2017-09-29 13:49 | PRG ---
DATE OF SERVICE: 09/29/2017 SUBJECTIVE: A 57-year-old gentleman being seen for end-stage renal disease. Patient denies any naus ea, vomiting or chest pain. PHYSICAL EXAMINATION: GENERAL: Patient is awake, alert. VITAL SIGNS: Afebrile, pulse 80, breathing at 16, blood pressure 140/71. HEAD/NECK: Normocephalic. Atraumatic. EYES: EOMI. No deformity. EARS: Clear. No ulcers. NOSE: Intact. No lesions. MOUTH: Clear. No discharge. THROAT: Clear. No exudate. LUNGS: Clear. No crackles. CARDIAC: S1, S2. No rub. ABDOMEN: Benign. BS+. GENITALIA/RECTUM: Palm absent. BACK/EXTREMITIES: Edema 0+ Ulcer- NEUROLOGICAL: Alert and motor intact. SKIN: Rash- Bruise- LYMPHATICS: Edema- Ulcer- LABORATORY DATA: Show hemoglobin 8.3. ASSESSMENT AND RECOMMENDATIONS: 1. Stage 6 chronic kidney disease. Continue hemodialysis. 2. Hypertension, stable. 3. Anemia, stable. 4. Medications based on glomerular filtration rate are appropriate.
--- NOTE | 2017-09-29 14:32 | PDOC.PN ---
- Subjective Encounter Start Date: 09/29/17 Encounter Start Time: 14:30 Subjective: feels good.no new complaints - Objective Resuscitation Status: Resuscitation Status DNR:Do Not Resuscitate MAR Reviewed: Yes Vital Signs & Weight: Vital Signs (12 hours) Temp Pulse Resp BP BP Pulse Ox 09/29/17 12:08 97.9 F 79 18 140/71 93 L 09/29/17 10:10 160/78 H 09/29/17 08:46 97.7 F 82 16 160/78 H 94 L 09/29/17 04:57 99 F 84 16 167/95 H 93 L Weight Admit Weight 158 lb Weight 2.342 oz Most Recent Monitor Data Heart Rate from ECG 68 NIBP 169/93 NIBP BP-Mean 109 Respiration from ECG 20 SpO2 99 I&O: 09/28/17 09/29/17 09/30/17 06:59 06:59 06:59 Intake Total 2175 1025 Output Total 500 400 Balance 1675 625 Result Diagrams: 09/28/17 05:18 09/29/17 05:14 Additional Labs: Accuchecks 09/29/17 09/28/17 10:24 18:10 POC Glucose 149 H 119 H Phys Exam - Physical Examination Constitutional: NAD HEENT: PERRLA, moist MMs, sclera anicteric, oral pharynx no lesions Neck: no nodes, no JVD, supple, full ROM Respiratory: no wheezing, no rales, no rhonchi, clear to auscultation bilateral Cardiovascular: RRR, no significant murmur, no rub, gallop Gastrointestinal: soft, non-tender, no distention, positive bowel sounds Musculoskeletal: no edema, pulses present Neurological: non-focal, normal sensation, moves all 4 limbs Psychiatric: normal affect, A&O x 3 Dx/Plan (1) Clostridium difficile infection Code(s): B96.89 - OTH BACTERIAL AGENTS THE CAUSE OF DISEASES CLASSD [id number] Status: Acute (2) NSTEMI (non-ST elevated myocardial infarction) Code(s): I21.4 - NON-ST ELEVATION (NSTEMI) MYOCARDIAL INFARCTION Status: Acute Comment: medical management. (3) ESRD on dialysis Code(s): N18.6 - END STAGE RENAL DISEASE; Z99.2 - DEPENDENCE ON RENAL DIALYSIS Status: Chronic (4) Hypothermia Code(s): T68.XXXA - HYPOTHERMIA, INITIAL ENCOUNTER Status: Resolved (5) Anemia of renal disease Code(s): D63.1 - ANEMIA IN CHRONIC KIDNEY DISEASE Status: Chronic (6) BPH (benign prostatic hyperplasia) Code(s): N40.0 - BENIGN PROSTATIC HYPERPLASIA WITHOUT LOWER URINRY TRACT SYMP Status: Chronic (7) Chronic combined systolic and diastolic heart failure Code(s): I50.42 - CHRONIC COMBINED SYSTOLIC AND DIASTOLIC HRT FAIL Status: Chronic (8) Cocaine abuse Code(s): F14.10 - COCAINE ABUSE, UNCOMPLICATED Status: Chronic (9) Diabetes mellitus type 2, uncontrolled Code(s): E11.65 - TYPE 2 DIABETES MELLITUS WITH HYPERGLYCEMIA Status: Chronic (10) Diabetic neuropathy Code(s): E11.40 - TYPE 2 DIABETES MELLITUS WITH DIABETIC NEUROPATHY, UNSP Status: Chronic Qualifiers: Diabetes mellitus type: type 2 (11) FTT (failure to thrive) in adult Status: Chronic (12) Hx of BKA Code(s): Z89.519 - ACQUIRED ABSENCE OF UNSPECIFIED LEG BELOW KNEE Status: Chronic Qualifiers: Laterality: right Qualified Code(s): Z89.511 - Acquired absence of right leg below knee (13) Hypertension Code(s): I10 - ESSENTIAL (PRIMARY) HYPERTENSION Status: Chronic Qualifiers: Hypertension type: essential hypertension Qualified Code(s): I10 - Essential (primary) hypertension (14) Moderate protein-calorie malnutrition Code(s): E44.0 - MODERATE PROTEIN-CALORIE MALNUTRITION Status: Chronic - Plan DVT proph w/SCDs clinicxally better.hemodynamically stable. -: DC home on PO vanco for total of 21 days. -: pt counselled extensively about the need for compliance for HD. -: f/u w PCP and nephrology as an OP * . Review of Systems - Review of Systems Constitutional: negative: fever, chills, sweats, weakness, malaise, other ENT: negative: Ear Pain, Ear Discharge, Nose Pain, Nose Discharge, Nose Congestion, Mouth Pain, Mouth Swelling, Throat Pain, Throat Swelling, Other Respiratory: negative: Cough, Dry, Shortness of Breath, Hemoptysis, SOB with Excertion, Pleuritic Pain, Sputum, Wheezing Cardiovascular: negative: chest pain, palpitations, orthopnea, paroxysmal nocturnal dyspnea, edema, light headedness, other Gastrointestinal: negative: Nausea, Vomiting, Abdominal Pain, Diarrhea, Constipation, Melena, Hematochezia, Other Genitourinary: negative: Dysuria, Frequency, Incontinence, Hematuria, Retention , Other Musculoskeletal: negative: Neck Pain, Shoulder Pain, Arm Pain, Back Pain, Hand Pain, Leg Pain, Foot Pain, Other Neurological: negative: Weakness, Numbness, Incoordination, Change in Speech, Confusion, Seizures, Other - Medications/Allergies Allergies/Adverse Reactions: Allergies Allergy/AdvReac Type Severity Reaction Status Date / Time No Known Drug Allergies Allergy Verified 09/23/17 20:29 Medications: Current Medications Acetaminophen (Tylenol) 650 mg PO Q4H PRN PRN Reason: Headache/Fever or Pain Acetaminophen (Tylenol) 650 mg [place] Q4H PRN PRN Reason: Headache/Fever or Pain Calcium Acetate (Phoslo) 667 mg PO TID-[facility] Last Admin: 09/29/17 12:55 Dose: 667 mg Carvedilol (Coreg) 6.25 mg PO BID-[facility] Last Admin: 09/29/17 10:10 Dose: 6.25 mg Dextrose/Water (Dextrose 50%) 25 gm SLOW IVP PRN PRN PRN Reason: Hypoglycemia Last Admin: 09/26/17 07:40 Dose: 25 gm Diphenhydramine HCl (Benadryl) 25 mg IVP Q4H PRN PRN Reason: Itching & Insomnia Last Admin: 09/26/17 22:22 Dose: 25 mg Epoetin Nikhil (Procrit) 10,000 units IVP [id number] [facility] Last Admin: 09/28/17 10:12 Dose: 10,000 units Glucagon (Glucagon) 1 mg IM PRN PRN PRN Reason: Hypoglycemia Heparin Sodium (Porcine) (Heparin) 5,000 units SC BID [facility] Last Admin: 09/29/17 10:10 Dose: 5,000 units Dextrose/Water (D5w) 1,000 mls @ 0 mls/hr IV .Q0M PRN; As Directed PRN Reason: Hypoglycemia Dextrose/Water (Dextrose 10% In Water) 1,000 mls @ 50 mls/hr IV .Q20H [facility] Last Admin: 09/28/17 22:16 Dose: 1,000 mls Vancomycin HCl 1.25 gm/ Sodium (Chloride) 250 mls @ 166.667 mls/hr IVPB WILLCALL [facility] Vancomycin HCl 1 gm/ Device 200 mls @ 200 mls/hr IVPB WILLCALL ANGE Vancomycin HCl 750 mg/ Sodium (Chloride) 250 mls @ 250 mls/hr IVPB WILLCALL ANGE Last Admin: 09/28/17 16:24 Dose: 250 mls Vancomycin HCl 500 mg/ Sodium (Chloride) 100 mls @ 100 mls/hr IVPB WILLCALL ANGE Epinephrine 4 mg/ Dextrose/ (Water) 254 mls @ 0 mls/hr IVP INF ANGE; Titrate PRN Reason: Protocol Last Admin: 09/26/17 16:37 Dose: 254 mls Insulin Human Lispro (Humalog) 0 units SC .MILD SLIDING SCALE PRN PRN Reason: Mild Correctional Scale Last Admin: 09/29/17 07:12 Dose: 2 unit Lidocaine/Prilocaine (Emla 2.5%) 0 gm TOP ASDIR PRN PRN Reason: USE PRIOR TO EA DIALYSIS Last Admin: 09/28/17 13:22 Dose: 1 applic Miscellaneous Medication (Pharmacy To Dose) 0 each IVPB PRN PRN PRN Reason: VANC SLIDING SCLAE Nifedipine (Procardia Xl) 60 mg PO 2100 [facility] Last Admin: 09/28/17 21:07 Dose: 60 mg Hold Vancomycin For (Level >20) 0 each FS .AT DIALYSIS [facility] Vancomycin HCl (First Vancomycin) 125 mg PO QID [facility] Last Admin: 09/29/17 12:55 Dose: 125 mg
[2017-09-29 16:41] VITALS: BP 169/79; TEMP 97.8
--- NOTE | 2017-09-29 23:04 | DIS ---
DATE OF ADMISSION: 09/23/2017 DATE OF DISCHARGE: 09/29/2017 PRIMARY CARE PHYSICIAN: Rdaha Almanzar MD DISCHARGE DIAGNOSES: 1. Acute on chronic kidney insufficiency due to missed hemodialysis, due to noncompliance. 2. Clostridium difficile infection and non-ST elevation myocardial infarction. 3. Hypothermia on presentation, resolved. 4. Anemia of chronic kidney disease. 5. BPH. 6. Chronic combined heart failure. 7. Cocaine abuse. 8. Diabetes mellitus, type 2. 9. Diabetic neuropathy. 10. History of [id number] on the right. 11. Hypertension. 12. Malnutrition. DISCHARGE MEDICATIONS: As follows vancomycin 125 mg p.o. q.i.d. for a total of 21 days, Florastor 25 0 mg p.o. daily for 30 days, nifedipine dose was changed from 90 p.o. b.i.d. to 60 mg daily, Coreg do se is same at 25 mg p.o. b.i.d., hydralazine is same at 50 mg p.o. t.i.d., PhosLo 667 t.i.d., tamsulo sin 0.4 daily, and Levemir 15 units at bedtime. CONSULTATIONS: 1. Pulmonary medicine, Dr. Goode and Dr. Prado. 2. Nephrology, Dr. Brandon and Dr. De Los Santos. 3. Cardiology, Dr. Rabago. PROCEDURES DONE: 1. Echocardiogram, which showed EF of 45% to 50%, [id number] tricuspid regurgitation, and mitr al regurgitation. 2. Hemodialysis. HISTORY OF PRESENTING ILLNESS: Mr. Dumont is a well-known patient to our facility, is a 57-year-old Af rican-[place] male with history of end-stage renal disease and ongoing cocaine abuse with significan t noncompliance with treatment who was brought in after he was found unconscious and cold weather ins [employer] machine shop. He was hypothermic to 83 degrees upon presentation and was warmed up in the emerge ncy room. He was found to have some evidence of urinary tract infection based on urinalysis and was started on empiric antibiotics and Nephrology was consulted for maintenance hemodialysis as he was fo und to be in acute over chronic renal failure. He was initially admitted to the critical care unit. HOSPITAL COURSE: He was seen by Pulmonary Critical Care Medicine who followed along. Hypothermia wa s likely exogenous. The patient was also found to be having elevated cardiac enzymes with troponin as high as 2.207. Car diology was consulted. Echo was done with the results above-mentioned. Dr. Rabago saw the patient and started him on optimal medical management as he is not a candidate for cardiac catheterization. Nephrology followed the patient along. The patient was counseled extensively about the need for main tenance hemodialysis. Family conferences were done multiple and palliative care team was involved on ce again. They did agree to be DNR and out of hospital DNR form was signed by myself along with his mother. The patient does have transportation in the form of bus pass arranged on his previous admiss ion. I have personally talked with the patient and counseled him and at this time, he promised that he will keep his appointments with the dialysis. Prior to presentation, reported he has missed 2 wee ks' worth of dialysis. The patient was seen and examined prior to discharge. Please see hospitalist progress note from today's date for further detail including [id number] interaction. He remains a high risk for readmission due to noncompliance and ongoing cocaine abuse and comorbidities. Total time spent in the discharge was 35 minutes. I tried to contact the patient's mother Ms. Cordoba, but the phone went to voicemail.
--- NOTE | 2017-10-04 19:21 | EKG ---
Test Reason : POSS A-FIB Blood Pressure : / mmHG Vent. Rate : 129 BPM Atrial Rate : 147 BPM P-R Int : 000 ms QRS Dur : 080 ms QT Int : 368 ms P-R-T Axes : 000 079 233 degrees QTc Int : 539 ms Atrial fibrillation with rapid ventricular response Septal infarct , age undetermined Marked ST abnormality, possible inferior subendocardial injury Abnormal ECG When compared with ECG of 01-AUG-2017 15:39, Atrial fibrillation has replaced Sinus rhythm Vent. rate has increased BY [address] now depressed in Inferior leads ST now depressed in Lateral leads T wave inversion now evident in Inferior leads Confirmed by FAVIO SHEN (2) on 10/04/2017 7:21:00 PM Referred By: EDWAR Confirmed By:FAVIO SHEN
--- NOTE | 2017-10-04 19:32 | EKG ---
Test Reason : Blood Pressure : / mmHG Vent. Rate : 048 BPM Atrial Rate : 054 BPM P-R Int : 000 ms QRS Dur : 082 ms QT Int : 540 ms P-R-T Axes : 000 076 129 degrees QTc Int : 482 ms Junctional rhythm Nonspecific ST and T wave abnormality Prolonged QT Abnormal ECG Confirmed by FAVIO SHEN (2) on 10/04/2017 7:32:21 PM Referred By: SHERI Confirmed By:FAVIO SHEN
== END 2017-09-29 17:22 | disposition home or self-care (01) | DRG 922 ==
LOC: ERS 15:54 → CCU 19:15 → SURG A 09-27 05:08
PROVIDERS: ADMIT Internal Medicine; ATTEND Internal Medicine
PROC: 5A1D70Z Performance of Urinary Filtration, Intermittent, Less than 6 Hours Per Day (ICD-10-PCS; 2017-09-23)
PROC: 06HM33Z Insertion of Infusion Device into Right Femoral Vein, Percutaneous Approach (ICD-10-PCS; principal; 2017-09-24)
PROC: 30233N1 Transfusion of Nonautologous Red Blood Cells into Peripheral Vein, Percutaneous Approach (ICD-10-PCS; 2017-09-26)
DX: T68.XXXA Hypothermia, initial encounter (principal); N18.6 End stage renal disease; I21.4 Non-ST elevation (NSTEMI) myocardial infarction; I13.2 Hypertensive heart and chronic kidney disease with heart failure and with stage 5 chronic kidney disease, or end stage renal disease; G93.41 Metabolic encephalopathy; B96.7 Clostridium perfringens [C. perfringens] as the cause of diseases classified elsewhere; E44.0 Moderate protein-calorie malnutrition; E11.40 Type 2 diabetes mellitus with diabetic neuropathy, unspecified; I50.42 Chronic combined systolic (congestive) and diastolic (congestive) heart failure; I95.9 Hypotension, unspecified; N39.0 Urinary tract infection, site not specified; E11.65 Type 2 diabetes mellitus with hyperglycemia; E87.5 Hyperkalemia; I08.1 Rheumatic disorders of both mitral and tricuspid valves; D63.1 Anemia in chronic kidney disease; N40.0 Benign prostatic hyperplasia without lower urinary tract symptoms; F14.10 Cocaine abuse, uncomplicated; F17.210 Nicotine dependence, cigarettes, uncomplicated; R62.7 Adult failure to thrive; Z91.15 Patient's noncompliance with renal dialysis; Z99.2 Dependence on renal dialysis; Z89.511 Acquired absence of right leg below knee; Z66 Do not resuscitate; Z83.3 Family history of diabetes mellitus; X31.XXXA Exposure to excessive natural cold, initial encounter; Y92.63 Factory as the place of occurrence of the external cause
CPT/HCPCS: 36415; 36416; 36430; 80048; 80202; 82553; 82575; 82805; 83735; 83880; 84100; 84484; 85025; 86850; 86900; 86901; 87040; 87077; 87149; 87186; 87324; 87340; 87449; 87493; 90935; 93005; 93010; 93306; 96361; 96374; 99292; A4216; C1751; C1752; G0257; J0171; J0461; J0696; J1200; J1644; J1650; J3370; J7050; J7070; P9016; P9047; Q4081

== ENCOUNTER 2017-10-01 10:35 | Inpatient (IN) | payer OTHER ==
[2017-10-01] MEDS ORDERED: Calcium Chloride 1 GM/10 ML Abboject SYRINGE ONE (11:09)
[2017-10-01] MEDS ORDERED: Dextrose 50% Abboject 50 ML SYRINGE ONE (11:09)
[2017-10-01] MEDS ORDERED: Lidocaine 2% PF 5 ML VIAL ONE (11:10)
[2017-10-01 11:21] LABS: Hemoglobin 8.5 g/dL (14.0-18.0); Mean Corpuscular HGB CONC 32.1 g/dL (32.0-36.0); Mean Corpuscular Hemoglobin 26.6 pg (27.0-31.0); Mean Corpuscular Volume 82.9 fl (80.0-94.0); Platelet Count 75 thou/uL (130-400); RBC Distribution Width 15.1 % (11.5-14.5); Red Blood Cell (RBC) Count 3.19 mill/uL (4.70-6.10); White Blood Cell (WBC) Count 3.9 thou/uL (4.8-10.8)
[2017-10-01 11:33] LABS: Actual Bicarbonate (HCO3a) 24.9 mEq/L (22-26); Base Excess (BEa) -0.9 mEq/L (0 (+/-) 2.5); CO2 Tension 47.4 mmHg (35.0-45.0); Calcium, Ionized 1.2 mmol/L (1.12-1.30); Hematocrit-ABG 26.3 % (42.0-52.0); Hemoglobin (Hb) 7.8 g/dL (14.0-18.0); O2 Tension (PaO2) 79.9 mmHg (80.0-100.0); pH, Arterial 7.34 (7.35-7.45)
[2017-10-01 11:34] LABS: Analyzer IN Cardio ER
[2017-10-01 11:38] LABS: ALT (SGPT) 14 U/L (8-55); AST (SGOT) 21 U/L (5-34); Albumin 2.5 g/dL (3.5-5.0); Alkaline Phosphatase 99 U/L (40-150); Anion Gap 13 mmol/L (10-20); BUN (Urea Nitrogen) 30 mg/dL (8.4-25.7); Bilirubin, Total 0.4 mg/dL (0.2-1.2); CK (CPK) 224 U/L (30-200); Calc. Creatinine Clearance 0 mL/min (70-130); Calcium 8.1 mg/dL (7.8-10.44); Carbon Dioxide 22 mmol/L (22-29); Chloride 105 mmol/L (98-107); Estimated GFR-MDRD 21; Globulin 2.9 g/dL (2.4-3.5); Glucose 276 mg/dL (70-105); Potassium 4.3 mmol/L (3.5-5.1); Protein, Total 5.4 g/dL (6.0-8.3); Sodium 136 mmol/L (136-145)
[2017-10-01 11:46] LABS: Troponin I 0.905 ng/mL (< 0.028)
[2017-10-01 11:51] LABS: Band 13 % (5-11); Bite Cells SLIGHT = 2-5 cells (100X) (0-1/hpf); Burr Cells SLIGHT = 2-5 cells (100X) (0-1/hpf); Eosinophils 4 % (0-10); Hypochromia SLIGHT = 6-15 cells (100X) (0-5/hpf); Lymphocytes 11 % (21-51); MDiff Complete? YES; Monocytes 2 % (0-10); Neutrophil 70 % (42-75); Nucleated RBC 1 % (0); PLT Morphology Comment Appears Decreased; Polychromasia SLIGHT = 2-3 cells (100X) (0-2/hpf); Schistocytes SLIGHT = 2-5 cells (100X) (0-1/hpf); Target Cells SLIGHT = 2-5 cells (100X) (0-1/hpf)
[2017-10-01] MEDS ORDERED: Dextrose 5% in Water 1,000 ML IV PRN (12:48)
[2017-10-01] MEDS ORDERED: Dextrose 50% Abboject 50 ML SYRINGE SLOW IVP PRN (12:48)
[2017-10-01] MEDS ORDERED: HumaLOG 300 UNITS/3 ML VIAL SC PRN (12:48)
[2017-10-01] MEDS ORDERED: Mag-Al 1200 mg/1200 mg/30 ML UDCUP PO PRN (13:03)
[2017-10-01] MEDS ORDERED: Acetaminophen 325 MG Suppository PR PRN (13:03)
[2017-10-01] MEDS ORDERED: Ondansetron HCl/PF 4 MG/2 ML Vial IVP PRN (13:03)
[2017-10-01] MEDS ORDERED: Milk Of Magnesia 30 ML UDCUP PO PRN (13:03)
[2017-10-01] MEDS ORDERED: Norepinephrine 8 MG/0.9% NS 250 ML IVPB PRN (13:03)
[2017-10-01] MEDS ORDERED: Nitroglycerin 50 MG/250 ML BOT 250 ML IVPB PRN (13:03)
[2017-10-01] MEDS ORDERED: CCU Electrolyte Replacement 1 EACH IVPB ONE (13:03)
[2017-10-01] MEDS ORDERED: Acetaminophen 325 MG/10.15 ML UDCUP PO PRN (13:03)
[2017-10-01 14:09] LABS: Acetaminophen Less than 6.0 mcg/mL (10.0-30.0); Alcohol Less than 10 mg/dL (Less than 10); Salicylate Less than 8.0 mg/dL (15.0-30.0)
[2017-10-01] MEDS ORDERED: FLU VACC QS2017-18 36 mo. & older 0.5 ML SYRINGE IM ONE (14:45)
[2017-10-01] MEDS: Vancomycin HCl 25 MG/ML Oral PO SCH ×3 (15:39→22:47)
[2017-10-01] MEDS: HumaLOG 300 UNITS/3 ML VIAL SC PRN (16:31)
--- NOTE | 2017-10-01 17:09 | HP ---
DATE OF ADMISSION: 10/01/2017 CHIEF COMPLAINT: Bradycardia and hypothermia. PRIMARY CARE PHYSICIAN: Maile. HISTORY OF PRESENT ILLNESS: Mr. Dumont is a 57-year-old -[place] African male with past medical histor y of diabetes, cocaine abuse, end-stage disease on hemodialysis, right BKA, who was recently admitted to our facility and discharged one day prior to yesterday who came back again with almost similar pr esentation. History is mainly provided by the emergency room physician and review of the electronic medical records. The patient is rather confused. Mr. Dumont was discharged by myself 2 days ago after being admitted for hypothermia and elevated tropon in. Given his longstanding history of noncompliance with his hemodialysis and cocaine abuse, medical management was recommended by Cardiology. Palliative care team was involved and he expresses wishes to be a DNR along with his family and eventually after stabilization, he was discharged home. He was brought in again today after he was found down in the same garage where he was found down last time by the bridge mechanic. Again he was found to have hypothermia for EMS with temperature less than 80s . The patient could not provide any history as to how he ended up in that garage and why he was not home. All he says that I get boarded at home and I spent the night in the garage. It is unclear if he was again on cocaine binge. Nevertheless, the patient was also found to have significant bradycardia with heart rate in the 20s l ikely secondary to hypothermia. He had external pacer pads placed and is now being admitted to the [facility] for further evaluation. He has [facility] dextrose [facility] His cardiac enzymes showed troponin of 0.905, which is actually trending down from 2.207 that were low noted on 09/26/2017. Other than that, he has no other lab abnormalities. His urine d rug screen is pending at this time. His blood sugar was 169. Please note that the patient was found to have C. diff diarrhea on his last admission and was dischar ged on oral vancomycin. Also note that beta cristino was started by Cardiology given his elevated tro ponin. PAST MEDICAL HISTORY: Please review the H and P dictated few days ago on 09/23/2017 by my colleague, Dr. Gallegos. PAST SURGICAL HISTORY: Please review the H and P dictated few days ago on 09/23/2017 by my colleague , Dr. Gallegos. SOCIAL HISTORY: Please review the H and P dictated few days ago on 09/23/2017 by my colleague, Dr. Gemma roca. FAMILY HISTORY: Please review the H and P dictated few days ago on 09/23/2017 by my colleague, Dr. Gemma roca. MEDICATIONS: As per the most recent discharge. MEDICATIONS: Hydralazine 50 mg p.o. t.i.d., vancomycin 125 q.i.d., Florastor 250 mg daily, nifedipin e XL 60 mg daily, Levemir 15 units at bedtime, Coreg 25 p.o. b.i.d., PhosLo 667 t.i.d., tamsulosin 0. 4 mg daily. REVIEW OF SYSTEM: UNobtainable due to confusion. LABORATORY DATA AND IMAGING DATA: CBC shows WBCs at 3.9, hemoglobin 8.5, platelet count of 75. ABG shows pH of 7.3, pCO2 47, oxygen 79. Serum chemistries: BUN 30, creatinine 3.37, blood sugar of 308 , creatinine kinase 227. TSH normal, CK-MB of 13.2. Troponin 0.905. Chest x-ray was not done. A 1 2-lead EKG shows sinus bradycardia with left ventricular hypertrophy and QRS widening. PHYSICAL EXAMINATION: VITAL SIGNS: Most recent vital signs include bladder temperature 88, pulse of 42, blood pressure 98/ 54, and respirations 17. GENERAL: No acute distress. He is awake and oriented, but a little bit slow. He is not able to pro vide appropriate answers to most of the questions, but otherwise no acute distress. HEENT: Mucous membrane is moist and pink. No oropharyngeal exudate or erythema. Head is normocepha lic, atraumatic. Pupils are equal, reactive to light and accommodation. Extraocular movement intact . NECK: Supple without any lymphadenopathy, JVD or bruit. CHEST: Clear to auscultation without any wheezing, rales or rhonchi. Rate and rhythm is regular wit hout any murmur, rubs or gallops. EXTREMITIES: Free of any cyanosis, clubbing, or edema. NEUROLOGIC: Nonfocal. ABDOMEN: Soft, nontender, nondistended. SKIN: Free of any rashes or bruises. Feeling cold and dry to touch. IMPRESSION AND PLAN: 1. Hypothermia. This is likely once again secondary to exposure. I am not sure why patient goes to the [employer] garage, but it seems like there is no heating. He reports that he spent the night ove rnight there and was found by the bridge mechanic in the morning. It is unclear if he was on a cocaine paulino e over there. Nevertheless, sepsis has been ruled out during his last admission. At this time, we w ill provide him supportive care with warming blankets. He will also undergo a warm dialysis as I hav e been notified. Continue to monitor. He is currently in the Critical Care Unit. He is currently o n a Frank Hugger blanket. We will consult Pulmonary Medicine for further recommendations. 2. Sinus bradycardia. This is likely secondary to hypothermia. He was also discharged on beta bloc ker. It is unclear if he actually took the medication or not. Nevertheless, his heart rate is impro ving with improvement in his core temperature. We will continue to monitor and discontinue all ruslan blocking agents at this time. Dr. Rabago from [facility] has been notified of the admission . It is unclear if bradycardia is the reason for his "passing out overnight." 3. End-stage renal disease. Nephrology has been consulted for her maintenance hemodialysis. 4. Elevated troponins. They are trending down from recent non-ST elevation myocardial infarction. Once again medical management will be continued. 5. Code status: The patient will be continued as DNR as he has signed out of hospital DNR along wit h his family and it was signed by myself and I have documented this day before yesterday. Palliative care team will be consulted for confirmation. 6. Diabetes mellitus. Accu-Cheks and insulin sliding scale. 7. Hypertension. Restart home medications if his blood pressure stays steady and improves. 8. Cocaine recheck drug screen. 9. History of congestive heart failure, currently appears euvolemic. 10. Disposition: The patient will be admitted to the Critical Care Unit for significant sinus jesus cardia and hypothermic of unclear etiology. Critical care time spent in the care of this patient 35 minutes.
[2017-10-01] MEDS: Calcium Acetate 667 MG CAP PO SCH (17:22)
[2017-10-01] MEDS: Famotidine/PF 20 mg/2ml Vial SLOW IVP SCH (22:48)
--- NOTE | 2017-10-01 23:30 | CON ---
DATE OF CONSULTATION: 10/01/2017 CONSULTING PHYSICIAN: Dr. Pauline Fitzpatrick. REASON FOR CONSULTATION: End-stage renal disease evaluation and care. REASON FOR ADMISSION: Bradycardia. HISTORY OF PRESENT ILLNESS: This is a 57-year-old -Taj[place] male with history of end-stage re nal disease, hypertension, and substance abuse who was brought to the hospital with about the same ki nd of history. Patient was found hypothermic. He was found at the outside garage and was bradycardi c in 20s. Patient is not able to give good history even though his vital signs are getting better. His drug screen is negative. He had dialysis on Sunday and was supposed to have dialysis today. No fever or chills. No nausea or vomiting. PAST MEDICAL HISTORY: Positive for end-stage renal disease on hemodialysis, hypertension, type 2 alvaro betes, substance abuse, cocaine use, BPH, chronic anemia. PAST SURGICAL HISTORY: Cystoscopy, right evkur-jnh-gvuo amputation, dialysis access procedures. HOME MEDICATIONS: Include hydralazine, Flomax, Florastor, Procardia, Levemir, Coreg, PhosLo. ALLERGIES: No known drug allergies. SOCIAL HISTORY: Smoking, alcohol positive and cocaine use positive. FAMILY HISTORY: Positive for kidney disease. REVIEW OF SYSTEMS: The following complete review of systems was negative, unless otherwise mentioned in the HPI or below: Constitutional: Weight loss or gain, ability to conduct usual activities. Skin: Rash, itching. Eyes: Double vision, pain. ENT/Mouth: Nose bleeding, neck stiffness, pain, tenderness. Cardiovascular: Palpitations, dyspnea on exertion, orthopnea. Respiratory: Shortness of breath, wheezing, cough, hemoptysis, fever or night sweats. Gastrointestinal: Poor appetite, abdominal pain, heartburn, nausea, vomiting, constipation, or diarr hea. Genitourinary: Urgency, frequency, dysuria, nocturia. Musculoskeletal: Pain, swelling. Neurologic/Psychiatric: Anxiety, depression. Allergy/Immunologic: Skin rash, bleeding tendency. PHYSICAL EXAMINATION: GENERAL: This is a well-built -Taj[place] male, in no apparent distress. VITAL SIGNS: Temperature 97.8, pulse 65, respiratory 17, blood pressure 119/65. HEENT: Atraumatic, normocephalic. Oral mucosa is moist. NECK: Supple. CARDIOVASCULAR: S1, S2 heard. Rate and rhythm regular. RESPIRATORY: Clear. GASTROINTESTINAL: Abdomen is soft. MUSCULOSKELETAL: 1+ edema. DERMATOLOGIC: No skin rash. NEUROLOGIC: Alert and awake. PSYCHIATRIC: Mood and affect normal. LABORATORY AND X-RAY FINDINGS: Hemoglobin is 8.5. Potassium is 4.3, BUN is 30, creatinine is 3.7. ASSESSMENT AND PLAN: 1. End-stage renal disease. Plan is to have dialysis today. Have warm dialysate for warming him up , also, some bradycardia, most likely from hypothermia. 2. Anemia, rule out bleed. 3. Edema, controlled. 4. Hypertension. 5. Substance abuse, counseled. 6. Hypoalbuminemia. 7. Proteinuria. Patient does not make a significant amount of urine, but will continue on dialysis as tolerated.
--- NOTE | 2017-10-02 00:53 | CON ---
DATE OF CONSULTATION: 10/01/2017 HISTORY OF PRESENT ILLNESS: Homer Dumont is a 57-year-old gentleman with multiple medical problems a nd multiple admissions. In fact, he was discharged no more than 48 hours ago. He is now back again for mental status change and hypothermia. They were unable to verify his temperature after multiple attempts. He was also initially found to b e bradycardic. His oxygen saturations apparently were low. He apparently has not been dialyzed. In fact, in the ICU, he is awake, responsive with a pulse of 49, blood pressure 98/54, sats are 98%, respirations 18. Denies any pain, shortness of breath. He is a smoker. He smokes cocaine. He dran k 2 beers yesterday as per his history. Extensive medical history as outlined in his previous medical records. His temperature was 80 in the ER; respirations 20; pulse was 25, he was paced; saturations improved to 95%. He is in the ICU now because of his hypothermia. MEDICATIONS: Hydralazine 50 three times a day. He was on p.o. vancomycin for his C. diff, Flomax 0. 4, 250, Procardia-XL 60, insulin, Coreg 25. Recent discharge summary included noncompliance, C. diff colitis, CHF, drug abuse, diabetes, neuropat hy, renal failure. PAST SURGICAL HISTORY: Below-knee amputation, right. Echocardiogram 45 TO 50%. ALLERGIES: None. REVIEW OF SYSTEMS: Otherwise unremarkable. PHYSICAL EXAMINATION: VITAL SIGNS: Pulse is 48, blood pressure 99/52 as noted, O2 SAT 97%, respirations 16. GENERAL: Awake, alert, responsive, moves all 4 extremities. CHEST: Decreased breath sounds. No wheezing. CARDIAC: Normal S1 and S2. No gallops. LABORATORY DATA: White count 3.9, 26, platelet count is low at 75,000. PO2 was 79, PCO2 47, p H 7.34. His chemistry, creatinine 3.7. Troponin was elevated. CK-MB was 13. Toxicology screen was negative. Alcohol level was less than 10. IMPRESSION: 1. Hypothermia, probably secondary to environmental issues. I doubt he is septic. 2. Chronic renal failure. 3. Bradycardia. 4. Diabetes. 5. Clostridium difficile colitis. 6. Tobacco, cocaine abuse. He needs dialysis. Pulmonary will follow in the ICU. Dr. Prado has seen him in the past. He is a D NR. We will notify Dr. Prado. One-half hour of critical care time.
[2017-10-02 04:59] LABS: ALT (SGPT) 12 U/L (8-55); AST (SGOT) 18 U/L (5-34); Albumin 2.7 g/dL (3.5-5.0); Alkaline Phosphatase 87 U/L (40-150); Anion Gap 13 mmol/L (10-20); BUN (Urea Nitrogen) 19 mg/dL (8.4-25.7); Bilirubin, Total 0.4 mg/dL (0.2-1.2); Calc. Creatinine Clearance 30 mL/min (70-130); Calcium 8.2 mg/dL (7.8-10.44); Carbon Dioxide 23 mmol/L (22-29); Chloride 106 mmol/L (98-107); Estimated GFR-MDRD 31; Globulin 2.5 g/dL (2.4-3.5); Glucose 73 mg/dL (70-105); Potassium 3.3 mmol/L (3.5-5.1); Protein, Total 5.2 g/dL (6.0-8.3); Sodium 139 mmol/L (136-145)
[2017-10-02 05:29] LABS: Band 1 % (5-11); Eosinophils 4 % (0-10); Hemoglobin 9.5 g/dL (14.0-18.0); Lymphocytes 14 % (21-51); MDiff Complete? YES; Mean Corpuscular Hemoglobin 26.6 pg (27.0-31.0); Mean Corpuscular Volume 80.7 fl (80.0-94.0); Mean Platelet Volume 6.9 fL (7.4-10.4); Neutrophil 81 % (42-75); PLT Morphology Comment Appears Decreased; Platelet Count 101 thou/uL (130-400); RBC Distribution Width 15.1 % (11.5-14.5); Red Blood Cell (RBC) Count 3.55 mill/uL (4.70-6.10); White Blood Cell (WBC) Count 5.6 thou/uL (4.8-10.8)
[2017-10-02] MEDS: Vancomycin HCl 25 MG/ML Oral PO SCH ×4 (07:52→22:05)
[2017-10-02] MEDS: Calcium Acetate 667 MG CAP PO SCH ×3 (07:52→16:59)
[2017-10-02] MEDS: Saccharomyces boulardii 250 MG CAP PO SCH (07:52)
--- NOTE | 2017-10-02 11:26 | PRG ---
Patient Name: CONNIE SALAZAR Date of service: 10/02/2017 Subjective: Patient was seen and examined at bedside and overnight events noted. Patient denies any shortness of breath or chest pain or palpitation. No history of nausea or vomiting or diarrhea or fever or chills or cramps. Objective: General: This is a well-built male in no apparent distress. Vital signs : Temperature 97.6, pulse 82, respirations 18, blood pressure 167/83. HEENT: Atraumatic, normocephalic. Oral mucosa is moist. Neck: Supple. Cardiovascular: S1 S2 heard. Rate and rhythm regular. Respiratory: Clear to auscultation. Gastrointestinal: Abdomen is soft. Musculoskeletal: No tenderness. 1+ edema. Dermatologic: No skin rash Neurologic: Alert and awake and oriented X3. No focal neurologic deficits. Moving all the extremit ies. Psychiatric: Mood and affect normal. LABORATORY DATA: Potassium 3.3, BUN 19, creatinine is 2.6. ASSESSMENT AND PLAN: 1. End-stage renal disease. The plan is to have dialysis. 2. Anemia. 3. Edema. 4. Hypertension. 5. Substance abuse. The plan is to continue dialysis as tolerated.
--- NOTE | 2017-10-02 12:34 | PRG ---
DATE OF SERVICE: 10/02/2017 SUBJECTIVE: Mr. Dumont had dialysis yesterday. He is stable overnight. OBJECTIVE: VITAL SIGNS: His blood pressure is 167/86, heart rate 82, respiratory rate in the teens. GENERAL: He is in no distress. LUNGS: Clear. HEART: Regular rhythm. ABDOMEN: Soft. LABORATORY DATA: White count 5.6, hemoglobin 9.5, platelets 101. Electrolytes were unremarkable. P otassium 3.3. Creatinine is 2.6. For some reason, the full drug screen was not done on this admissi on. He admits to doing cocaine this admission. IMPRESSION: 1. Ongoing cocaine use. 2. Hypothermia each time he was admitted. 3. End-stage renal disease, on dialysis for noncompliance with routine dialysis as an outpatient. 4. 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 PLAN: He remains a [facility]-Rgabqqdrxbq patient. His acute illness is resolved in my opinion. He is actually stable enough to be discharged. He will be back in the hospital within a week most likely b ecause of his noncompliance and ongoing drug use. It has been explained to him multiple times that stephen ramirez is not going to survive a year with his behavior pattern, but he really does not care to hear these discussions and tends to be quite verbally abusive towards the staff.
[2017-10-02 13:59] VITALS: BMI 21.3
--- NOTE | 2017-10-02 14:00 | PDOC.PN ---
- Subjective Encounter Start Date: 10/02/17 Encounter Start Time: 13:45 Subjective: f/u for hypothermia and elevated troponin in context of noncompliance, -: cocaine abuse and missed HD. All issues have improved with general support. - Objective Resuscitation Status: Resuscitation Status DNR:Do Not Resuscitate MAR Reviewed: Yes Vital Signs & Weight: Vital Signs (12 hours) Temp Pulse Resp BP Pulse Ox 10/02/17 12:20 97.4 F L 77 16 182/85 H 99 10/02/17 11:00 97.5 F L 10/02/17 08:00 97.6 F 79 20 99 10/02/17 05:00 97.8 F Weight Weight 144 lb 9.972 oz Most Recent Monitor Data Heart Rate from ECG 46 NIBP 131/80 NIBP BP-Mean 102 Respiration from ECG 15 SpO2 98 I&O: 10/01/17 10/02/17 10/03/17 06:59 06:59 06:59 Intake Total 163 410 Balance 163 410 Result Diagrams: 10/02/17 04:06 10/02/17 04:06 Additional Labs: Accuchecks 10/02/17 10/01/17 10/01/17 05:34 22:10 16:22 POC Glucose 79 72 256 H Phys Exam - Physical Examination Constitutional: NAD HEENT: PERRLA Neck: no JVD, supple Respiratory: clear to auscultation bilateral Cardiovascular: RRR Gastrointestinal: soft, non-tender, no distention, positive bowel sounds Musculoskeletal: no edema, pulses present Neurological: normal sensation, moves all 4 limbs Psychiatric: A&O x 3 Skin: normal turgor, cap refill <2 seconds Dx/Plan (1) Hypothermia Code(s): T68.XXXA - HYPOTHERMIA, INITIAL ENCOUNTER Status: Acute Comment: Recurrent episode likely self-inflicted with exposure and noncompliance, resolved (2) Bradycardia Code(s): R00.1 - BRADYCARDIA, UNSPECIFIED Status: Acute Comment: Likely combination of iatrogenic factors and hypothermia, resolved. Hold Coreg and Nifedipine. (3) Clostridium difficile infection Code(s): B96.89 - OTH BACTERIAL AGENTS THE CAUSE OF DISEASES CLASSD ELSWHR Status: Acute Comment: Continue Vancomycin 125mg po QID (4) ESRD (end stage renal disease) Code(s): N18.6 - END STAGE RENAL DISEASE Status: Chronic Comment: Continue HD per renal service (5) Anemia of renal disease Code(s): D63.1 - ANEMIA IN CHRONIC KIDNEY DISEASE Status: Chronic Comment: Stable, continue serial H/H monitoring (6) Cocaine abuse Code(s): F14.10 - COCAINE ABUSE, UNCOMPLICATED Status: Chronic Comment: CM for cessation resources (7) Diabetes mellitus type 2, uncontrolled Code(s): E11.65 - TYPE 2 DIABETES MELLITUS WITH HYPERGLYCEMIA Status: Chronic (8) ESRD on dialysis Code(s): N18.6 - END STAGE RENAL DISEASE; Z99.2 - DEPENDENCE ON RENAL DIALYSIS Status: Chronic Comment: HD per Renal service - Plan continue antibiotics, social worker palliative care Stable overall -: continue supportive mgmt -: CM for outpt drug rehab options -: Continue Vancomycin 125mg QID -: Florastor 250mg daily * AM lab: CMP, CBC * Likely home in 24h
[2017-10-02] MEDS: hydrALAZINE 25 MG TAB PO SCH ×2 (15:06→22:05)
[2017-10-02] MEDS: HumaLOG 300 UNITS/3 ML VIAL SC PRN (17:04)
[2017-10-02] MEDS: Famotidine/PF 20 mg/2ml Vial SLOW IVP SCH (22:04)
--- NOTE | 2017-10-02 23:13 | CON ---
DATE OF CONSULTATION: 10/02/2017 HISTORY OF PRESENT ILLNESS: Mr. Homer Dumont is a 57-year-old black male with a history of end-stage renal disease as well as cocaine abuse. Every time he is admitted into the hospital he has cocaine in his urine. He was just hospitalized towards the end of August after being found unconscious in cold weather with initial body temperature of 83 degrees. He had missed hemodialysis for 2 weeks. He was given warm fluids as well as wrapped in warm blankets and his temperature gradually increased. When I was asked to see the patient, he could not give any history of chest pain or shortness of breath. Cardiac enzymes were abnormal with a CK-MB of 22.9 and troponin I of 2.207. Echocardiogram during that admission revealed an ejection fraction of 45% to 50 % with moderate mitral regurgitation, mild to moderate tricuspid regurgitation and a small pericardial effusion. He was restarted on hemodialysis and ultimately discharged. He then was again admitted yesterday after he was found in the same garage, found to have a temperature of less than 80. He had significant bradycardia with heart rates in the 20s as well as episodes of complete heart block. He was warmed in the emergency room with return of his normal heart rhythm. During the previous admission, the decision was made not to pursue any invasive cardiac evaluation due to the patient being disoriented, at times combative and the family wishing him to be a do not resuscitate. At the present time, the patient continues to remain confused. PAST MEDICAL HISTORY: Diabetes, end-stage renal disease on hemodialysis and history of seizures. PAST SURGICAL HISTORY: Right yesnf-owx-kwbc amputation as well as AV access surgeries. MEDICATIONS: As listed in the chart. ALLERGIES: None. SOCIAL HISTORY: He does not smoke. He abuses cocaine. REVIEW OF SYSTEMS: Unobtainable due to the patient's confusion. PHYSICAL EXAMINATION: VITAL SIGNS: Blood pressure 169/108 and pulse of 78. HEENT: PERRL. NECK: Supple. CHEST: Clear. CARDIAC: S1 and S2 are normal, without any S3, S4 or murmurs. ABDOMEN: Normal bowel sounds, without tenderness or organomegaly. EXTREMITIES: Revealed no clubbing, cyanosis or edema of the left leg. There is a right pnkpa-qlj-usic amputation. NEUROLOGIC: Grossly intact except for the patient's extreme confusion. LABORATORY DATA: I do not see an EKG in the chart. Hemoglobin 9.5, hematocrit 28.7, white count 5600 and platelets 101,000. Sodium 139, potassium 3.3, chloride 106, carbon dioxide 23, BUN 19 and creatinine 2.63. Troponin I of 0.905. IMPRESSION: 1. Recurrent hypothermia. 2. Cocaine abuse. 3. End-stage renal disease 4. Possible non-ST segment elevation myocardial infarction. 5. Hypertension. 6. Diabetes. 7. Mild left ventricular dysfunction. PLAN: The patient continues to remain DNR and continues to remain confused. At the present time, I continued to feel he is not a candidate for any further cardiac evaluation. With repetitive nature of his admission, consideration should be given to placement. MTDD
[2017-10-03 06:17] LABS: Band 4 % (5-11); Eosinophils 10 % (0-10); Hemoglobin 8.9 g/dL (14.0-18.0); Lymphocytes 12 % (21-51); MDiff Complete? YES; Mean Corpuscular HGB CONC 31.8 g/dL (32.0-36.0); Mean Corpuscular Hemoglobin 26.4 pg (27.0-31.0); Mean Corpuscular Volume 82.9 fl (80.0-94.0); Mean Platelet Volume 10.4 fL (7.4-10.4); Monocytes 3 % (0-10); Neutrophil 71 % (42-75); Platelet Count 149 thou/uL (130-400); RBC Distribution Width 15.6 % (11.5-14.5); Red Blood Cell (RBC) Count 3.38 mill/uL (4.70-6.10); White Blood Cell (WBC) Count 8.1 thou/uL (4.8-10.8)
[2017-10-03 06:25] LABS: ALT (SGPT) 13 U/L (8-55); AST (SGOT) 18 U/L (5-34); Albumin 2.7 g/dL (3.5-5.0); Alkaline Phosphatase 94 U/L (40-150); Anion Gap 11 mmol/L (10-20); BUN (Urea Nitrogen) 21 mg/dL (8.4-25.7); Bilirubin, Total 0.4 mg/dL (0.2-1.2); Calc. Creatinine Clearance 23 mL/min (70-130); Calcium 8.5 mg/dL (7.8-10.44); Carbon Dioxide 26 mmol/L (22-29); Chloride 105 mmol/L (98-107); Estimated GFR-MDRD 23; Glucose 104 mg/dL (70-105); Potassium 4.1 mmol/L (3.5-5.1); Protein, Total 5.7 g/dL (6.0-8.3); Sodium 138 mmol/L (136-145)
[2017-10-03] MEDS: Saccharomyces boulardii 250 MG CAP PO SCH (07:23)
[2017-10-03] MEDS: Vancomycin HCl 25 MG/ML Oral PO SCH ×2 (07:23→12:10)
[2017-10-03] MEDS: Calcium Acetate 667 MG CAP PO SCH ×2 (07:23→12:10)
[2017-10-03] MEDS: hydrALAZINE 25 MG TAB PO SCH (07:23)
[2017-10-03] MEDS ORDERED: hydrALAZINE 20 MG/ML VIAL SLOW IVP PRN (11:48)
[2017-10-03 12:35] VITALS: BP 200/108; TEMP 97.3
--- NOTE | 2017-10-03 13:51 | PQF ---
CONNIE SALAZAR JOVITA CRAWLEY [id number] CLINICAL DOCUMENTATION IMPROVEMENT CLARIFICATION FORM: ICD-10 Updated PLEASE DO AN ADDENDUM TO THE PROGRESS NOTE WITH ANY DOCUMENTATION UPDATES OR ADDITIONS AND CARRY THROUGH TO DC SUMMARY. THANK YOU. DATE: 10-03-17 ATTN: DR. JONES Please exercise your independent, professional judgment in responding to the clarification form. Clinical indicators are provided on the bottom of this form for your review Please check appropriate box(s): ___x____ I (concur) with the Wound Care findings as stated below. [ ] Pressure Ulcer: (Stage I: Erythema; Stage II: Partial thickness; Stage III : Full thickness; Stage IV: Necrosis to muscle/bone) [ ] Location: POA: [ ] Yes [ ] No [ ] Unable to determine Stage (I to IV): (Left Right Bilateral____ _ N/A ) [ ] Location: POA: [ ] Yes [ ] No [ ] Unable to determine Stage (I to IV): (Left Right Bilateral____ _ N/A ) [ ] Location: POA: [ ] Yes [ ] No [ ] Unable to determine Stage (I to IV): (Left Right Bilateral____ _ N/A ) [ ] No pressure ulcer diagnosis [ ] Deep tissue injury [ ] Other diagnosis [ ] Unable to determine For continuity of documentation, please document condition throughout progress notes and discharge summary. Thank You. CLINICAL INDICATORS - SIGNS / SYMPTOMS / LABS 10-03 WOUNDCARE CONSULT: LEFT LATERAL HEEL - PU - SUSPECTED DTI LEFT KNEE - PU - UNSTAGEABLE RIGHT ANTERIOR KNEE - SUSPECT PU - STAGE 2 RISK FACTORS: H&P: FOUND DOWN ESRD DM COCAINE ABUSE HX RIGHT BKA FOR PVD TREATMENTS: CPOE: Wound care consult FOLLOW NURSING WOUND CARE PROTOCOL THANK YOU, ANA LILIA (This form is maintained as a part of the permanent medical record) 2014 [employer]. All Rights Reserved Ana Lilia Delaney RN, BS [email or web address] [employer] [facility]
--- NOTE | 2017-10-03 15:48 | PRG ---
DATE OF SERVICE: 10/03/2017 SUBJECTIVE: Patient was seen and examined at bedside and overnight events noted. Patient denies any shortness of breath or chest pain or palpitation. No history of nausea or vomiting or diarrhea or f ever or chills or cramps. OBJECTIVE: GENERAL: This is a well-built -[place] male, in no apparent distress. VITAL SIGNS: Temperature 97.3, pulse 70, respiratory rate 20, blood pressure 161/81. HEENT: Atraumatic, normocephalic, oral mucosa is moist. NECK: Supple. CARDIOVASCULAR: S1, S2 heard, rate and rhythm regular. RESPIRATORY: Clear to auscultation. GASTROINTESTINAL: Abdomen is soft. MUSCULOSKELETAL: No tenderness, no edema. DERMATOLOGIC: No skin rash. NEUROLOGIC: Alert and awake and oriented x3. No focal neurologic deficits. Moving all the extremit ies. PSYCHIATRIC: Mood and affect normal. LABORATORY DATA: Potassium 4.0. BUN is 21, creatinine is 3.4. ASSESSMENT AND PLAN: 1. End-stage renal disease. Continue on dialysis Sunday, Sunday, and Sunday. 2. Anemia. 3. Edema, remove fluid. 4. Hypertension. 5. Substance abuse, counseled. 6. Noncompliance. The patient was counseled. Continue dialysis as tolerated.
--- NOTE | 2017-10-03 21:20 | PRG ---
DATE OF SERVICE: 10/03/2017 Mr. Dumont has no new problems. He was seen earlier today and was in no distress. His exam is unchang ed and my opinion from a pulmonary standpoint, he is stable for discharge. His issues with noncompli ance will lead to readmission in the near future.
--- NOTE | 2017-10-03 23:51 | DIS ---
DATE OF ADMISSION: 10/01/2017 DATE OF DISCHARGE: 10/03/2017 DISCHARGE DIAGNOSES: 1. Status post hypothermia secondary to exposure and noncompliance, resolved. 2. Sinus bradycardia secondary to #1, resolved. 3. Elevated troponin I secondary to demand ischemia. 4. End-stage renal disease with hemodialysis noncompliance. 5. Anemia of chronic kidney disease. 6. Cocaine abuse, ongoing. 7. Diabetes mellitus type 2, poorly controlled. 8. Clostridium difficile colitis, resolving. CONSULTATIONS: Dr. Rabago with Cardiology service. Dr. Prado with Pulmonology Service. Dr. Mario hathaway with Nephrology Service. PERTINENT LABORATORY AND X-RAY FINDINGS: Creatinine ranged between 2.63 to 3.73 with estimated GFR r anging between 21 to 31, calcium 8.5. LFTs within normal limits. Troponin I 0.905, albumin 2.7. TS H 3.79. CBC showed a hemoglobin ranging between 8.5 to 9.5. Plasma alcohol level less than 10. A 2 D transthoracic echocardiogram dated 09/26/2017, showed ejection fraction of 45% to 50%. Mild left a trial enlargement. Moderate mitral valve regurgitation. Moderate tricuspid valve regurgitation. HOSPITAL COURSE: Patient was initially admitted to the telemetry unit after presenting with altered mentation and hypothermia after being found down. Patient was placed on Frank Hugger as well as given intravenous saline solution. Patient was placed on the telemetry monitoring, monitored due to sinus bradycardia noted at the time of presentation in conjunction with hypothermia. Patient was held on Coreg and nifedipine due to the bradycardia, which has since resolved with resolution of hypothermia. Patient underwent hemodialysis at the direction of the Nephrology Service without complication. Alex stern was evaluated by the Cardiology service without specific recommendations for any specific inter vention or medical adjustment. Patient with longstanding history of noncompliance, necessitating con servative management. Overall, the patient remained clinically stable for the remainder the hospital course and ready for discharge on 10/03/2017. DISCHARGE MEDICATIONS: 1. PhosLo 667 mg p.o. t.i.d. with meals. 2. Coreg 25 mg 1 tab p.o. b.i.d. 3. Hydralazine 50 mg p.o. t.i.d. 4. Levemir 15 units subcutaneously at bedtime. 5. Procardia-XL 60 mg 1 tab p.o. daily. 6. Florastor 250 mg 1 tab p.o. daily. 7. Flomax 0.4 mg 1 tab p.o. daily. 8. Vancomycin 125 mg p.o. q.i.d. FOLLOWUP: Patient may follow up with Dr. Radha Almanzar within 7 days of discharge. Patient will fo llow up with Dr. Zheng Brandon with Nephrology Service and to call his office for appointment time and da te. CONDITION ON DISCHARGE: Stable. ACTIVITY: Ad yamilka. DIET: Heart healthy, ADA, and renal. CODE STATUS: FULL. DISPOSITION: Home, on 10/03/2017.
--- NOTE | 2017-10-27 13:00 | EKG ---
Test Reason : Blood Pressure : / mmHG Vent. Rate : 025 BPM Atrial Rate : 025 BPM P-R Int : 134 ms QRS Dur : 120 ms QT Int : 526 ms P-R-T Axes : 056 074 170 degrees QTc Int : 339 ms Marked sinus bradycardia Left ventricular hypertrophy with QRS widening Cannot rule out Septal infarct , age undetermined Inferolateral injury pattern * ACUTE DC * Consider right ventricular involvement in acute inferior infarct Abnormal ECG Confirmed by ROS DIOR, SOLANGE ([id number]), senior editor RICHARD LYNN ([id number]) on 10/27/2017 12:59:53 PM Referred By: Confirmed By:SOLANGE SOMMER MD
== END 2017-10-03 18:08 | disposition home or self-care (01) | DRG 922 ==
LOC: ERS 10:35 → CCU 13:07 → T4-B 10-02 12:31
PROVIDERS: ADMIT Internal Medicine; ATTEND Internal Medicine
PROC: 5A1D70Z Performance of Urinary Filtration, Intermittent, Less than 6 Hours Per Day (ICD-10-PCS; principal; 2017-10-01)
PROC: 5A1D70Z Performance of Urinary Filtration, Intermittent, Less than 6 Hours Per Day (ICD-10-PCS; 2017-10-03)
DX: T68.XXXA Hypothermia, initial encounter (principal); N18.6 End stage renal disease; I44.2 Atrioventricular block, complete; E11.22 Type 2 diabetes mellitus with diabetic chronic kidney disease; A04.72 Enterocolitis due to Clostridium difficile, not specified as recurrent; I12.0 Hypertensive chronic kidney disease with stage 5 chronic kidney disease or end stage renal disease; I08.1 Rheumatic disorders of both mitral and tricuspid valves; E88.09 Other disorders of plasma-protein metabolism, not elsewhere classified; E11.65 Type 2 diabetes mellitus with hyperglycemia; I24.8 Other forms of acute ischemic heart disease; R00.1 Bradycardia, unspecified; F14.10 Cocaine abuse, uncomplicated; Z99.2 Dependence on renal dialysis; Z91.15 Patient's noncompliance with renal dialysis; Z89.511 Acquired absence of right leg below knee; Z66 Do not resuscitate; X31.XXXA Exposure to excessive natural cold, initial encounter; D63.1 Anemia in chronic kidney disease; N40.0 Benign prostatic hyperplasia without lower urinary tract symptoms; L89.892 Pressure ulcer of other site, stage 2; L89.890 Pressure ulcer of other site, unstageable
CPT/HCPCS: 36415; 36416; 80053; 80307; 82550; 82553; 82805; 84443; 84484; 85007; 85025; 85027; 90935; 93005; G0257; G8978-GP-CL; G8979-GP-CK; J0360; J2001; S0028